=== PATIENT | male | born 1980 | race African-American/Black ===

== ENCOUNTER 2022-08-18 12:20 | Inpatient (IN) | payer SELFPAY ==
[~2022-08-18 12:20] MED LIST: Iopamidol-370 76% 500 ML 1 ML ONE
[2022-08-18 13:43] LABS: Actual Bicarbonate (HCO3v) 25 mEq/L (22-28); Base Excess 1.3 mEq/L (-2.0 to +3.0); Calcium, Ionized (venous) 0.91 mmol/L (1.16-1.32); Chloride (VBG) 95 mmol/L (98-106); Hemoglobin (Hb) 15.6 g/dL (13.2-17.3); Potassium (VBG) 7.05 mmol/L (3.70-5.30); Sodium 126.4 mmol/L (133-146); pH (venous) 7.45 (7.32-7.43)
[2022-08-18 13:48] LABS: Hemoglobin 14.6 g/dL (14.0-18.0); Mean Corpuscular HGB CONC 33.4 g/dL (32.0-36.0); Mean Corpuscular Hemoglobin 29.9 pg (27.0-31.0); Mean Corpuscular Volume 89.6 fl (78.0-98.0); Mean Platelet Volume 8.5 fL (7.4-10.4); Platelet Count 408 10x3/uL (130-400); RBC Distribution Width 12.1 % (11.5-14.5); Red Blood Cell (RBC) Count 4.88 mill/uL (4.70-6.10)
[2022-08-18] MEDS ORDERED: Dextrose 50% Abboject 50 ML SYRINGE ONE (13:56)
[2022-08-18] MEDS ORDERED: Insulin Regular 300 UNITS/3 ML VIAL ONE (13:56)
[2022-08-18] MEDS ORDERED: Calcium Chloride 1 GM/10 ML Abboject SYRINGE ONE ×2 (13:56→18:05)
[2022-08-18] MEDS ORDERED: Piperacillin/Tazobactam 4.5 GM VIAL ONE (13:59)
[2022-08-18] MEDS ORDERED: Albuterol 2.5 MG/0.5 ML NEB ONE (14:02)
[2022-08-18 14:06] LABS: Band 4 % (5-11); INR-International Normal Ratio 1.4; Lymphocytes 7 % (21-51); MDiff Complete? YES; Monocytes 4 % (0-10); Neutrophil 82 % (42-75); Platelet Morphology Comment Appears Increased; Prothrombin Time 18.1 sec (12.0-14.7); RBC Morphology Normal; Reactive Lymphocytes 3 % (0-10)
[2022-08-18 14:07] LABS: PTT 41.4 sec (22.9-36.1)
[2022-08-18 14:10] LABS: Magnesium 2.4 mg/dL (1.6-2.6)
[2022-08-18] MEDS ORDERED: VANCOMYCIN 2 GRAM/500 ML BAG 2 GM in Premix Bag 1 BAG IVPB SCH (14:15)
[2022-08-18 15:30] LABS: ALT (SGPT) 105 U/L (8-55); AST (SGOT) 122 U/L (5-34); Albumin 3.1 g/dL (3.5-5.0); Alkaline Phosphatase 129 U/L (40-110); Anion Gap 23 mmol/L (10-20); BUN (Urea Nitrogen) 14 mg/dL (8.9-20.6); Bilirubin, Total 2.3 mg/dL (0.2-1.2); Calc. Creatinine Clearance 0 mL/min (70-130); Calcium 8.4 mg/dL (7.8-10.44); Carbon Dioxide 20 mmol/L (22-29); Chloride 95 mmol/L (98-107); Estimated GFR 113; Globulin 3.8 g/dL (2.4-3.5); Glucose 86 mg/dL (70-105); Potassium 5.7 mmol/L (3.5-5.1); Protein, Total 6.9 g/dL (6.0-8.3); Sodium 132 mmol/L (136-145)
[2022-08-18 15:47] LABS: SARS-CoV-2 NAA Rapid Test Not Detected (NotDetected)
[2022-08-18 16:32] LABS: Lactic Acid 3.7 mmol/L (0.5-2.2)
[2022-08-18] MEDS ORDERED: Ondansetron ODT 4 MG TAB PO PRN (17:55)
[2022-08-18] MEDS ORDERED: HYDROcodone/Acetaminophen 5/325 mg Tablet PO PRN (17:55)
[2022-08-18] MEDS ORDERED: Ondansetron PF 4 MG/2 ML Vial IVP PRN (17:55)
[2022-08-18] MEDS ORDERED: Lactated Ringer's 1,000 ML IV SCH (18:15)
[2022-08-18 22:23] LABS: Hemoglobin A1c 5.2 % (4.0-6.0)
[2022-08-18 22:36] LABS: Anion Gap 11 mmol/L (10-20); BUN (Urea Nitrogen) 10 mg/dL (8.9-20.6); Calc. Creatinine Clearance 0 mL/min (70-130); Calcium 7.7 mg/dL (7.8-10.44); Carbon Dioxide 20 mmol/L (22-29); Chloride 104 mmol/L (98-107); Estimated GFR 117; Glucose 102 mg/dL (70-105); Potassium 4.5 mmol/L (3.5-5.1); Sodium 130 mmol/L (136-145)
[2022-08-18] MEDS ORDERED: Piperacillin/Tazobactam 3.375 GM in Sodium Chloride 0.9% 100 ML IVPB SCH (23:59)
[2022-08-19 00:17] VITALS: BMI 20.5
[2022-08-19] MEDS: Piperacillin/Tazobactam 3.375 GM in Sodium Chloride 0.9% 100 ML IVPB SCH ×3 (00:41→17:21)
[2022-08-19] MEDS ORDERED: Piperacillin/Tazobactam 3.375 GM in Sodium Chloride 0.9% 100 ML IVPB SCH (01:00)
[2022-08-19] MEDS ORDERED: Morphine 4 MG/ML VIAL SLOW IVP PRN (04:50)
[2022-08-19] MEDS: Vancomycin 1 GM in Premix Bag 1 BAG IVPB SCH ×3 (04:55→19:51)
[2022-08-19] MEDS ORDERED: Acetaminophen 500 MG TAB PO SCH (05:00)
[2022-08-19 06:21] LABS: Hemoglobin 10.2 g/dL (14.0-18.0); Mean Corpuscular HGB CONC 33.5 g/dL (32.0-36.0); Mean Corpuscular Hemoglobin 29.9 pg (27.0-31.0); Mean Corpuscular Volume 89.5 fl (78.0-98.0); Mean Platelet Volume 8.4 fL (7.4-10.4); Platelet Count 329 10x3/uL (130-400); RBC Distribution Width 12.1 % (11.5-14.5); Red Blood Cell (RBC) Count 3.41 mill/uL (4.70-6.10); White Blood Cell (WBC) Count 19.7 10x3/uL (4.8-10.8)
[2022-08-19 06:25] LABS: ALT (SGPT) 78 U/L (8-55); AST (SGOT) 120 U/L (5-34); Alkaline Phosphatase 90 U/L (40-110); Anion Gap 11 mmol/L (10-20); BUN (Urea Nitrogen) 9 mg/dL (8.9-20.6); Calc. Creatinine Clearance 140 mL/min (70-130); Calcium 7.6 mg/dL (7.8-10.44); Carbon Dioxide 20 mmol/L (22-29); Chloride 100 mmol/L (98-107); Estimated GFR 119; Glucose 113 mg/dL (70-105); Sodium 127 mmol/L (136-145)
[2022-08-19 08:37] LABS: Band 40 % (5-11); Lymphocytes 9 % (21-51); MDiff Complete? YES; Monocytes 6 % (0-10); Neutrophil 45 % (42-75); Platelet Morphology Comment Appears Adequate; Polychromasia SLIGHT = 2-3 cells (100X) (0-2/hpf); Toxic Granulation SLIGHT; Vacuoles SLIGHT
[2022-08-19 16:43] LABS: Magnesium 2.1 mg/dL (1.6-2.6); Phosphorus 2.1 mg/dL (2.3-4.7)
[2022-08-19 17:02] LABS: HIV (1/2) Antibody/Antigen Non-Reactive (NonReactive); HIV 1/2 INDEX 0.28 S/CO (<1.00); Hep C IgG Ab Non-Reactive (NonReactive); Hep C Index 0.16 S/CO (0-0.79)
[2022-08-19] MEDS: Sodium Bicarbonate Tab 325 MG TAB PO SCH ×2 (17:21→19:50)
[2022-08-19] MEDS: Acetaminophen 325 MG TAB PO PRN (19:57)
[2022-08-19] MEDS ORDERED: Electrolyte Replacement Protocol 1 EACH FS PRN (20:15)
[2022-08-20] MEDS: Piperacillin/Tazobactam 3.375 GM in Sodium Chloride 0.9% 100 ML IVPB SCH ×3 (02:46→17:26)
[2022-08-20] MEDS: Vancomycin 1 GM in Premix Bag 1 BAG IVPB SCH ×2 (05:24→12:30)
[2022-08-20] MEDS ORDERED: Sodium Chloride 0.9% 1,000 ML IV SCH (07:00)
[2022-08-20] MEDS: Ferrous Sulfate 325 MG TAB PO SCH (09:13)
[2022-08-20] MEDS: Folic Acid 1 MG TAB PO SCH (09:14)
[2022-08-20] MEDS: Thiamine 100 MG TAB PO SCH (09:14)
[2022-08-20 11:22] LABS: Mean Corpuscular HGB CONC 33.6 g/dL (32.0-36.0); Mean Corpuscular Hemoglobin 30.1 pg (27.0-31.0); Mean Corpuscular Volume 89.6 fl (78.0-98.0); Mean Platelet Volume 7.4 fL (7.4-10.4); Platelet Count 429 10x3/uL (130-400); RBC Distribution Width 12.1 % (11.5-14.5); Red Blood Cell (RBC) Count 3.64 mill/uL (4.70-6.10); White Blood Cell (WBC) Count 28.4 10x3/uL (4.8-10.8)
[2022-08-20 11:40] LABS: Vancomycin, Trough 3.2 ug/mL
[2022-08-20 11:43] LABS: ALT (SGPT) 74 U/L (8-55); AST (SGOT) 91 U/L (5-34); Alkaline Phosphatase 89 U/L (40-110); Anion Gap 10 mmol/L (10-20); BUN (Urea Nitrogen) 7 mg/dL (8.9-20.6); Bilirubin, Total 0.8 mg/dL (0.2-1.2); Calc. Creatinine Clearance 149 mL/min (70-130); Calcium 7.7 mg/dL (7.8-10.44); Carbon Dioxide 23 mmol/L (22-29); Chloride 100 mmol/L (98-107); Estimated GFR 122; Globulin 3.4 g/dL (2.4-3.5); Glucose 134 mg/dL (70-105); Phosphorus 2.3 mg/dL (2.3-4.7); Potassium 3.8 mmol/L (3.5-5.1); Protein, Total 5.4 g/dL (6.0-8.3); Sodium 129 mmol/L (136-145)
[2022-08-20 11:48] LABS: Band 44 % (5-11); Lymphocytes 2 % (21-51); MDiff Complete? YES; Metamyelocyte 1 % (0-0); Monocytes 5 % (0-10); Neutrophil 48 % (42-75); Platelet Morphology Comment Appears Increased; Polychromasia SLIGHT = 2-3 cells (100X) (0-2/hpf)
[2022-08-20] MEDS: VANCOMYCIN 1.25 GM/250 ML BAG 1.25 GM in Premix Bag 1 BAG IVPB SCH ×2 (12:38→21:58)
[2022-08-20] MEDS ORDERED: OLANZapine ODT 5 MG TAB SL SCH (12:43)
[2022-08-20] MEDS ORDERED: HYDROcodone/Acetaminophen 5/325 mg Tablet PO PRN (12:53)
[2022-08-20] MEDS ORDERED: Magnesium 2 GM/50 ML(in water) 2 GM in Premix Bag 1 BAG IVPB SCH (14:00)
[2022-08-21] MEDS: Piperacillin/Tazobactam 3.375 GM in Sodium Chloride 0.9% 100 ML IVPB SCH ×3 (00:54→16:03)
[2022-08-21 05:18] LABS: ALT (SGPT) 100 U/L (8-55); AST (SGOT) 136 U/L (5-34); Alkaline Phosphatase 89 U/L (40-110); Anion Gap 10 mmol/L (10-20); BUN (Urea Nitrogen) 7 mg/dL (8.9-20.6); Bilirubin, Total 0.7 mg/dL (0.2-1.2); Calc. Creatinine Clearance 142 mL/min (70-130); Calcium 7.7 mg/dL (7.8-10.44); Carbon Dioxide 23 mmol/L (22-29); Chloride 101 mmol/L (98-107); Estimated GFR 120; Globulin 3.6 g/dL (2.4-3.5); Glucose 103 mg/dL (70-105); Magnesium 2.3 mg/dL (1.6-2.6); Potassium 3.9 mmol/L (3.5-5.1); Protein, Total 5.6 g/dL (6.0-8.3); Sodium 130 mmol/L (136-145)
[2022-08-21 05:19] LABS: Acetaminophen Less than 10.0 mcg/mL (10.0-30.0); Alcohol Less than 10 mg/dL (Less than 10); Salicylate Less than 8.0 mg/dL (15.0-30.0)
[2022-08-21 05:47] LABS: Band 22 % (5-11); Eosinophils 1 % (0-10); Hemoglobin 10.6 g/dL (14.0-18.0); Lymphocytes 8 % (21-51); MDiff Complete? YES; Mean Corpuscular HGB CONC 32.7 g/dL (32.0-36.0); Mean Corpuscular Hemoglobin 29.5 pg (27.0-31.0); Mean Corpuscular Volume 90.2 fl (78.0-98.0); Mean Platelet Volume 7.4 fL (7.4-10.4); Metamyelocyte 3 % (0-0); Monocytes 5 % (0-10); Myelocyte 1 % (0-0); Neutrophil 58 % (42-75); Platelet Count 491 10x3/uL (130-400); Platelet Morphology Comment Appears Increased; RBC Distribution Width 12.2 % (11.5-14.5); Reactive Lymphocytes 2 % (0-10); Red Blood Cell (RBC) Count 3.58 mill/uL (4.70-6.10); Toxic Granulation SLIGHT; White Blood Cell (WBC) Count 29.9 10x3/uL (4.8-10.8)
[2022-08-21 06:12] LABS: Hep B Surface AG-Rflx Sendout Negative (Negative); Hepatitis B Core Total Negative (Negative); Hepatitis B Surface AB-Sendout Non Reactive (.)
[2022-08-21] MEDS: VANCOMYCIN 1.25 GM/250 ML BAG 1.25 GM in Premix Bag 1 BAG IVPB SCH (06:31)
[2022-08-21] MEDS: Ferrous Sulfate 325 MG TAB PO SCH (09:30)
[2022-08-21] MEDS: Folic Acid 1 MG TAB PO SCH (09:31)
[2022-08-21] MEDS: HYDROcodone/Acetaminophen 7.5/325 mg Tablet PO PRN (09:31)
[2022-08-21] MEDS: Thiamine 100 MG TAB PO SCH (09:31)
[2022-08-21] MEDS: OLANZapine ODT 5 MG TAB SL SCH (09:31)
[2022-08-21 12:15] LABS: Vancomycin, Trough 14.1 ug/mL
[2022-08-21] MEDS: Vancomycin 1.5 GRAM/300 ML BAG 1.5 GM in Premix Bag 1 BAG IVPB SCH ×2 (13:11→21:43)
[2022-08-22] MEDS: Piperacillin/Tazobactam 3.375 GM in Sodium Chloride 0.9% 100 ML IVPB SCH ×4 (02:15→16:53)
[2022-08-22] MEDS: Vancomycin 1.5 GRAM/300 ML BAG 1.5 GM in Premix Bag 1 BAG IVPB SCH ×3 (04:41→21:37)
[2022-08-22 04:57] LABS: Mean Corpuscular HGB CONC 32.7 g/dL (32.0-36.0); Mean Corpuscular Hemoglobin 29.5 pg (27.0-31.0); Mean Corpuscular Volume 90.4 fl (78.0-98.0); Mean Platelet Volume 7.1 fL (7.4-10.4); Platelet Count 554 10x3/uL (130-400); RBC Distribution Width 12.3 % (11.5-14.5); Red Blood Cell (RBC) Count 3.71 mill/uL (4.70-6.10); White Blood Cell (WBC) Count 24.1 10x3/uL (4.8-10.8)
[2022-08-22 05:09] LABS: ALT (SGPT) 137 U/L (8-55); AST (SGOT) 179 U/L (5-34); Albumin 1.9 g/dL (3.5-5.0); Alkaline Phosphatase 86 U/L (40-110); Anion Gap 10 mmol/L (10-20); BUN (Urea Nitrogen) 7 mg/dL (8.9-20.6); Bilirubin, Total 0.5 mg/dL (0.2-1.2); Calc. Creatinine Clearance 159 mL/min (70-130); Calcium 7.6 mg/dL (7.8-10.44); Carbon Dioxide 24 mmol/L (22-29); Chloride 101 mmol/L (98-107); Estimated GFR 124; Globulin 3.7 g/dL (2.4-3.5); Glucose 118 mg/dL (70-105); Protein, Total 5.6 g/dL (6.0-8.3); Sodium 131 mmol/L (136-145)
[2022-08-22 05:22] LABS: Band 18 % (5-11); Hypochromia SLIGHT = 6-15 cells (100X) (0-5/hpf); Lymphocytes 11 % (21-51); MDiff Complete? YES; Monocytes 7 % (0-10); Neutrophil 64 % (42-75); Platelet Morphology Comment Appears Adequate
[2022-08-22] MEDS: Ferrous Sulfate 325 MG TAB PO SCH (09:50)
[2022-08-22] MEDS: Thiamine 100 MG TAB PO SCH (09:51)
[2022-08-22] MEDS: HYDROcodone/Acetaminophen 7.5/325 mg Tablet PO PRN (09:51)
[2022-08-22] MEDS: Folic Acid 1 MG TAB PO SCH (09:51)
[2022-08-22] MEDS: OLANZapine ODT 5 MG TAB SL SCH (09:51)
[2022-08-22 12:35] LABS: Vancomycin, Trough 13.7 ug/mL
[2022-08-23] MEDS: Piperacillin/Tazobactam 3.375 GM in Sodium Chloride 0.9% 100 ML IVPB SCH ×3 (03:09→17:22)
[2022-08-23] MEDS: Vancomycin 1.5 GRAM/300 ML BAG 1.5 GM in Premix Bag 1 BAG IVPB SCH ×3 (03:15→21:28)
[2022-08-23 05:35] LABS: Hemoglobin 10.9 g/dL (14.0-18.0); Mean Corpuscular HGB CONC 33.7 g/dL (32.0-36.0); Mean Corpuscular Hemoglobin 30.4 pg (27.0-31.0); Mean Corpuscular Volume 90.5 fl (78.0-98.0); Mean Platelet Volume 6.7 fL (7.4-10.4); Platelet Count 611 10x3/uL (130-400); RBC Distribution Width 12.2 % (11.5-14.5); Red Blood Cell (RBC) Count 3.57 mill/uL (4.70-6.10); White Blood Cell (WBC) Count 18.6 10x3/uL (4.8-10.8)
[2022-08-23 05:57] LABS: Band 4 % (5-11); Lymphocytes 15 % (21-51); MDiff Complete? YES; Metamyelocyte 2 % (0-0); Monocytes 3 % (0-10); Neutrophil 76 % (42-75); Platelet Morphology Comment Appears Increased; RBC Morphology Normal
[2022-08-23 05:58] LABS: ALT (SGPT) 208 U/L (8-55); AST (SGOT) 217 U/L (5-34); Albumin 2.1 g/dL (3.5-5.0); Alkaline Phosphatase 99 U/L (40-110); Anion Gap 9 mmol/L (10-20); BUN (Urea Nitrogen) 9 mg/dL (8.9-20.6); Bilirubin, Total 0.4 mg/dL (0.2-1.2); Calc. Creatinine Clearance 165 mL/min (70-130); Calcium 7.7 mg/dL (7.8-10.44); Carbon Dioxide 24 mmol/L (22-29); Chloride 103 mmol/L (98-107); Estimated GFR 125; Globulin 3.9 g/dL (2.4-3.5); Glucose 116 mg/dL (70-105); Potassium 4.5 mmol/L (3.5-5.1); Sodium 131 mmol/L (136-145)
[2022-08-23] MEDS: Thiamine 100 MG TAB PO SCH (10:05)
[2022-08-23] MEDS: Ferrous Sulfate 325 MG TAB PO SCH (10:05)
[2022-08-23] MEDS: Folic Acid 1 MG TAB PO SCH (10:05)
[2022-08-23] MEDS: OLANZapine ODT 5 MG TAB SL SCH (10:07)
[2022-08-23 12:36] LABS: Vancomycin, Trough 12.5 ug/mL
[2022-08-24] MEDS: Piperacillin/Tazobactam 3.375 GM in Sodium Chloride 0.9% 100 ML IVPB SCH ×3 (01:22→17:28)
[2022-08-24] MEDS: Vancomycin 1.5 GRAM/300 ML BAG 1.5 GM in Premix Bag 1 BAG IVPB SCH ×3 (03:03→21:37)
[2022-08-24 05:26] LABS: ALT (SGPT) 201 U/L (8-55); AST (SGOT) 160 U/L (5-34); Albumin 2.2 g/dL (3.5-5.0); Alkaline Phosphatase 96 U/L (40-110); Anion Gap 10 mmol/L (10-20); BUN (Urea Nitrogen) 9 mg/dL (8.9-20.6); Bilirubin, Total 0.4 mg/dL (0.2-1.2); Calc. Creatinine Clearance 156 mL/min (70-130); Calcium 7.9 mg/dL (7.8-10.44); Carbon Dioxide 24 mmol/L (22-29); Chloride 103 mmol/L (98-107); Estimated GFR 123; Globulin 3.9 g/dL (2.4-3.5); Glucose 105 mg/dL (70-105); Potassium 4.3 mmol/L (3.5-5.1); Protein, Total 6.1 g/dL (6.0-8.3); Sodium 133 mmol/L (136-145)
[2022-08-24] MEDS: Folic Acid 1 MG TAB PO SCH (08:51)
[2022-08-24] MEDS: Ferrous Sulfate 325 MG TAB PO SCH (08:51)
[2022-08-24] MEDS: Thiamine 100 MG TAB PO SCH (08:51)
[2022-08-24] MEDS: OLANZapine ODT 5 MG TAB SL SCH (08:52)
[2022-08-24] MEDS: HYDROcodone/Acetaminophen 7.5/325 mg Tablet PO PRN (08:53)
[2022-08-24 13:00] LABS: Vancomycin, Trough 13.9 ug/mL
[2022-08-25] MEDS: Piperacillin/Tazobactam 3.375 GM in Sodium Chloride 0.9% 100 ML IVPB SCH ×3 (00:48→17:41)
[2022-08-25] MEDS: Vancomycin 1.5 GRAM/300 ML BAG 1.5 GM in Premix Bag 1 BAG IVPB SCH ×3 (04:33→20:32)
[2022-08-25 05:12] LABS: #Eosinphils 0.1 thou/uL (0.0-0.7); #Monocytes 1.2 thou/uL (0.11-0.59); #Neutrophils 11.9 thou/uL (1.40-6.50); %Basophils 0.1 % (0.0-1.0); %Eosinophils 0.7 % (0.0-10.0); %Lymphocytes 12.9 % (21.0-51.0); %Monocytes 7.7 % (0.0-10.0); %Neutrophils 78.6 % (42.0-75.0); Hemoglobin 11.6 g/dL (14.0-18.0); Mean Corpuscular Hemoglobin 28.8 pg (27.0-31.0); Mean Platelet Volume 6.5 fL (7.4-10.4); Platelet Count 738 10x3/uL (130-400); RBC Distribution Width 12.4 % (11.5-14.5); Red Blood Cell (RBC) Count 4.04 mill/uL (4.70-6.10); White Blood Cell (WBC) Count 15.2 10x3/uL (4.8-10.8)
[2022-08-25 05:14] LABS: Amphetamine Not Detected (NotDetected); Barbiturates Screen Not Detected (NotDetected); Benzodiazepine Screen Not Detected (NotDetected); Cocaine Metabolite Screen Not Detected (NotDetected); Methadone Not Detected (NotDetected); Methamphetamine Not Detected (NotDetected); Opiate Screen Detected (NotDetected); Oxycodone Screen Not Detected (NotDetected); Phencyclidine (PCP) Not Detected (NotDetected); THC/Cannabinoid Screen Not Detected (NotDetected); Tricyclic Screen Not Detected (NotDetected)
[2022-08-25 05:29] LABS: ALT (SGPT) 200 U/L (8-55); AST (SGOT) 146 U/L (5-34); Albumin 2.2 g/dL (3.5-5.0); Alkaline Phosphatase 114 U/L (40-110); Bilirubin, Direct 0.2 mg/dL (0.1-0.3); Bilirubin, Total 0.4 mg/dL (0.2-1.2); Protein, Total 6.3 g/dL (6.0-8.3)
[2022-08-25 05:30] LABS: ALT (SGPT) 190 U/L (8-55); AST (SGOT) 146 U/L (5-34); Albumin 2.2 g/dL (3.5-5.0); Alkaline Phosphatase 118 U/L (40-110); Anion Gap 12 mmol/L (10-20); BUN (Urea Nitrogen) 11 mg/dL (8.9-20.6); Bilirubin, Total 0.4 mg/dL (0.2-1.2); Calc. Creatinine Clearance 156 mL/min (70-130); Calcium 7.2 mg/dL (7.8-10.44); Carbon Dioxide 24 mmol/L (22-29); Chloride 101 mmol/L (98-107); Estimated GFR 123; Globulin 3.4 g/dL (2.4-3.5); Glucose 107 mg/dL (70-105); Potassium 4.9 mmol/L (3.5-5.1); Protein, Total 5.6 g/dL (6.0-8.3); Sodium 132 mmol/L (136-145)
[2022-08-25] MEDS: Ferrous Sulfate 325 MG TAB PO SCH (10:23)
[2022-08-25] MEDS: Thiamine 100 MG TAB PO SCH (10:24)
[2022-08-25] MEDS: Folic Acid 1 MG TAB PO SCH (10:24)
[2022-08-25] MEDS: HYDROcodone/Acetaminophen 7.5/325 mg Tablet PO PRN (12:20)
[2022-08-25] MEDS: OLANZapine ODT 5 MG TAB SL SCH (12:21)
[2022-08-25 12:59] LABS: Vancomycin, Trough 12.9 ug/mL
[2022-08-26] MEDS: Piperacillin/Tazobactam 3.375 GM in Sodium Chloride 0.9% 100 ML IVPB SCH ×3 (01:02→16:52)
[2022-08-26 04:29] LABS: #Eosinphils 0.1 thou/uL (0.0-0.7); #Lymphocytes 1.7 thou/uL (1.20-3.40); #Monocytes 1.3 thou/uL (0.11-0.59); #Neutrophils 10.8 thou/uL (1.40-6.50); %Basophils 0.2 % (0.0-1.0); %Eosinophils 0.9 % (0.0-10.0); %Lymphocytes 12.2 % (21.0-51.0); %Monocytes 9.4 % (0.0-10.0); %Neutrophils 77.3 % (42.0-75.0); Mean Corpuscular Volume 90.5 fl (78.0-98.0); Mean Platelet Volume 6.1 fL (7.4-10.4); Platelet Count 736 10x3/uL (130-400); RBC Distribution Width 12.3 % (11.5-14.5); Red Blood Cell (RBC) Count 4.14 mill/uL (4.70-6.10)
[2022-08-26 04:50] LABS: ALT (SGPT) 153 U/L (8-55); AST (SGOT) 68 U/L (5-34); Albumin 2.3 g/dL (3.5-5.0); Alkaline Phosphatase 121 U/L (40-110); Anion Gap 12 mmol/L (10-20); BUN (Urea Nitrogen) 10 mg/dL (8.9-20.6); Bilirubin, Total 0.4 mg/dL (0.2-1.2); Calc. Creatinine Clearance 151 mL/min (70-130); Calcium 7.6 mg/dL (7.8-10.44); Carbon Dioxide 25 mmol/L (22-29); Chloride 102 mmol/L (98-107); Estimated GFR 122; Globulin 3.4 g/dL (2.4-3.5); Glucose 118 mg/dL (70-105); Potassium 4.6 mmol/L (3.5-5.1); Protein, Total 5.7 g/dL (6.0-8.3); Sodium 134 mmol/L (136-145)
[2022-08-26 04:51] LABS: ALT (SGPT) 161 U/L (8-55); AST (SGOT) 70 U/L (5-34); Albumin 2.3 g/dL (3.5-5.0); Alkaline Phosphatase 120 U/L (40-110); Bilirubin, Direct 0.2 mg/dL (0.1-0.3); Bilirubin, Total 0.4 mg/dL (0.2-1.2); Protein, Total 6.4 g/dL (6.0-8.3)
[2022-08-26] MEDS: Vancomycin 1.5 GRAM/300 ML BAG 1.5 GM in Premix Bag 1 BAG IVPB SCH ×3 (05:41→20:57)
[2022-08-26] MEDS: Folic Acid 1 MG TAB PO SCH (09:57)
[2022-08-26] MEDS: Ferrous Sulfate 325 MG TAB PO SCH (09:57)
[2022-08-26] MEDS: Thiamine 100 MG TAB PO SCH (09:57)
[2022-08-26] MEDS: OLANZapine ODT 5 MG TAB SL SCH (09:57)
[2022-08-26] MEDS: Acetaminophen 325 MG TAB PO PRN (10:05)
[2022-08-26] MEDS: HYDROcodone/Acetaminophen 7.5/325 mg Tablet PO PRN (10:15)
[2022-08-26 13:10] LABS: Vancomycin, Trough 15.6 ug/mL
[2022-08-27] MEDS: Piperacillin/Tazobactam 3.375 GM in Sodium Chloride 0.9% 100 ML IVPB SCH ×3 (01:17→17:24)
[2022-08-27] MEDS: Vancomycin 1.5 GRAM/300 ML BAG 1.5 GM in Premix Bag 1 BAG IVPB SCH (06:13)
[2022-08-27 07:30] LABS: #Lymphocytes 1.6 thou/uL (1.20-3.40); #Monocytes 1.1 thou/uL (0.11-0.59); #Neutrophils 8.6 thou/uL (1.40-6.50); %Basophils 0.4 % (0.0-1.0); %Eosinophils 0.4 % (0.0-10.0); %Lymphocytes 13.7 % (21.0-51.0); %Monocytes 9.2 % (0.0-10.0); %Neutrophils 76.2 % (42.0-75.0); Hemoglobin 11.4 g/dL (14.0-18.0); Mean Corpuscular Volume 90.5 fl (78.0-98.0); Platelet Count 737 10x3/uL (130-400); RBC Distribution Width 12.3 % (11.5-14.5); Red Blood Cell (RBC) Count 3.94 mill/uL (4.70-6.10); White Blood Cell (WBC) Count 11.3 10x3/uL (4.8-10.8)
[2022-08-27 07:44] LABS: ALT (SGPT) 102 U/L (8-55); AST (SGOT) 33 U/L (5-34); Albumin 2.3 g/dL (3.5-5.0); Alkaline Phosphatase 99 U/L (40-110); Anion Gap 13 mmol/L (10-20); BUN (Urea Nitrogen) 9 mg/dL (8.9-20.6); Bilirubin, Total 0.6 mg/dL (0.2-1.2); Calc. Creatinine Clearance 146 mL/min (70-130); Calcium 8.4 mg/dL (7.8-10.44); Carbon Dioxide 23 mmol/L (22-29); Chloride 102 mmol/L (98-107); Estimated GFR 121; Globulin 4.1 g/dL (2.4-3.5); Glucose 121 mg/dL (70-105); Potassium 4.3 mmol/L (3.5-5.1); Protein, Total 6.4 g/dL (6.0-8.3); Sodium 134 mmol/L (136-145)
[2022-08-27] MEDS: Ferrous Sulfate 325 MG TAB PO SCH (08:56)
[2022-08-27] MEDS: OLANZapine ODT 5 MG TAB SL SCH (08:56)
[2022-08-27] MEDS: Folic Acid 1 MG TAB PO SCH (08:56)
[2022-08-27] MEDS: Thiamine 100 MG TAB PO SCH (08:56)
[2022-08-27 12:41] LABS: Vancomycin, Trough 20.8 ug/mL
[2022-08-27] MEDS: Calcium Carbonate 600 MG + Vit D TAB PO SCH ×2 (17:25→17:28)
[2022-08-27] MEDS: Ziprasidone 20 MG CAP PO SCH (21:15)
[2022-08-27] MEDS: VANCOMYCIN 1.25 GM/250 ML BAG 1.25 GM in Premix Bag 1 BAG IVPB SCH (22:26)
[2022-08-28] MEDS: Piperacillin/Tazobactam 3.375 GM in Sodium Chloride 0.9% 100 ML IVPB SCH ×3 (02:00→17:11)
[2022-08-28] MEDS: VANCOMYCIN 1.25 GM/250 ML BAG 1.25 GM in Premix Bag 1 BAG IVPB SCH ×3 (06:07→21:57)
[2022-08-28] MEDS: Acetaminophen 325 MG TAB PO PRN ×2 (06:07→20:55)
[2022-08-28 08:12] LABS: ALT (SGPT) 83 U/L (8-55); AST (SGOT) 44 U/L (5-34); Albumin 2.3 g/dL (3.5-5.0); Alkaline Phosphatase 103 U/L (40-110); Anion Gap 11 mmol/L (10-20); BUN (Urea Nitrogen) 10 mg/dL (8.9-20.6); Bilirubin, Total 0.7 mg/dL (0.2-1.2); Calc. Creatinine Clearance 140 mL/min (70-130); Calcium 8.3 mg/dL (7.8-10.44); Carbon Dioxide 25 mmol/L (22-29); Chloride 100 mmol/L (98-107); Estimated GFR 119; Globulin 3.9 g/dL (2.4-3.5); Glucose 106 mg/dL (70-105); Potassium 4.2 mmol/L (3.5-5.1); Protein, Total 6.2 g/dL (6.0-8.3); Sodium 132 mmol/L (136-145)
[2022-08-28] MEDS: Calcium Carbonate 600 MG + Vit D TAB PO SCH ×2 (09:24→17:11)
[2022-08-28] MEDS: Folic Acid 1 MG TAB PO SCH (09:24)
[2022-08-28] MEDS: Benztropine 1 MG TAB PO SCH (09:24)
[2022-08-28] MEDS: Ascorbic Acid 500 mg Chewable Tablet PO SCH (09:24)
[2022-08-28] MEDS: Ferrous Sulfate 325 MG TAB PO SCH (09:24)
[2022-08-28] MEDS: Multivitamin W/ Minerals 1 TAB PO SCH (09:24)
[2022-08-28] MEDS: Ziprasidone 20 MG CAP PO SCH ×2 (09:24→20:55)
[2022-08-28] MEDS: Thiamine 100 MG TAB PO SCH (09:24)
[2022-08-28] MEDS: HYDROcodone/Acetaminophen 7.5/325 mg Tablet PO PRN (10:56)
[2022-08-29] MEDS: Piperacillin/Tazobactam 3.375 GM in Sodium Chloride 0.9% 100 ML IVPB SCH ×2 (00:45→08:58)
[2022-08-29] MEDS: VANCOMYCIN 1.25 GM/250 ML BAG 1.25 GM in Premix Bag 1 BAG IVPB SCH ×2 (05:28→13:33)
[2022-08-29 07:00] LABS: ALT (SGPT) 62 U/L (8-55); AST (SGOT) 25 U/L (5-34); Albumin 2.3 g/dL (3.5-5.0); Alkaline Phosphatase 94 U/L (40-110); Anion Gap 10 mmol/L (10-20); BUN (Urea Nitrogen) 9 mg/dL (8.9-20.6); Bilirubin, Total 0.4 mg/dL (0.2-1.2); Calc. Creatinine Clearance 156 mL/min (70-130); Calcium 8.4 mg/dL (7.8-10.44); Carbon Dioxide 26 mmol/L (22-29); Chloride 102 mmol/L (98-107); Estimated GFR 123; Globulin 3.9 g/dL (2.4-3.5); Glucose 114 mg/dL (70-105); Potassium 4.2 mmol/L (3.5-5.1); Protein, Total 6.2 g/dL (6.0-8.3); Sodium 134 mmol/L (136-145)
[2022-08-29] MEDS: Calcium Carbonate 600 MG + Vit D TAB PO SCH ×2 (08:59→16:55)
[2022-08-29] MEDS: Ferrous Sulfate 325 MG TAB PO SCH (08:59)
[2022-08-29] MEDS: Ascorbic Acid 500 mg Chewable Tablet PO SCH (08:59)
[2022-08-29] MEDS: Multivitamin W/ Minerals 1 TAB PO SCH (08:59)
[2022-08-29] MEDS: Benztropine 1 MG TAB PO SCH (09:00)
[2022-08-29] MEDS: Folic Acid 1 MG TAB PO SCH (09:00)
[2022-08-29] MEDS: Thiamine 100 MG TAB PO SCH (09:00)
[2022-08-29] MEDS: Ziprasidone 20 MG CAP PO SCH ×2 (09:07→22:14)
[2022-08-29 20:33] LABS: Vancomycin, Trough 15.8 ug/mL
[2022-08-29] MEDS: Cefepime 1 GM in Sodium Chloride 0.9% 100 ML IVPB SCH (21:21)
[2022-08-30 07:09] LABS: #Basophils 0.1 thou/uL (0.0-0.2); #Lymphocytes 1.3 thou/uL (1.20-3.40); #Monocytes 0.8 thou/uL (0.11-0.59); #Neutrophils 3.6 thou/uL (1.40-6.50); %Basophils 0.9 % (0.0-1.0); %Eosinophils 0.3 % (0.0-10.0); %Lymphocytes 22.2 % (21.0-51.0); %Monocytes 13.4 % (0.0-10.0); %Neutrophils 63.2 % (42.0-75.0); Mean Corpuscular HGB CONC 32.3 g/dL (32.0-36.0); Mean Corpuscular Hemoglobin 28.6 pg (27.0-31.0); Mean Corpuscular Volume 88.6 fl (78.0-98.0); Mean Platelet Volume 6.1 fL (7.4-10.4); Platelet Count 618 10x3/uL (130-400); RBC Distribution Width 12.1 % (11.5-14.5); Red Blood Cell (RBC) Count 3.86 mill/uL (4.70-6.10); White Blood Cell (WBC) Count 5.7 10x3/uL (4.8-10.8)
[2022-08-30 07:30] LABS: Anion Gap 12 mmol/L (10-20); BUN (Urea Nitrogen) 9 mg/dL (8.9-20.6); Calc. Creatinine Clearance 151 mL/min (70-130); Calcium 8.3 mg/dL (7.8-10.44); Carbon Dioxide 25 mmol/L (22-29); Chloride 101 mmol/L (98-107); Estimated GFR 122; Glucose 108 mg/dL (70-105); Sodium 134 mmol/L (136-145)
[2022-08-30] MEDS: Cefepime 1 GM in Sodium Chloride 0.9% 100 ML IVPB SCH ×2 (09:25→20:45)
[2022-08-30] MEDS: Ferrous Sulfate 325 MG TAB PO SCH (09:26)
[2022-08-30] MEDS: Ascorbic Acid 500 mg Chewable Tablet PO SCH (09:26)
[2022-08-30] MEDS: Thiamine 100 MG TAB PO SCH (09:28)
[2022-08-30] MEDS: Multivitamin W/ Minerals 1 TAB PO SCH (09:32)
[2022-08-30] MEDS: Folic Acid 1 MG TAB PO SCH (09:32)
[2022-08-30] MEDS: Benztropine 1 MG TAB PO SCH (09:32)
[2022-08-30] MEDS: Calcium Carbonate 600 MG + Vit D TAB PO SCH ×2 (09:33→16:48)
[2022-08-30] MEDS: Ziprasidone 20 MG CAP PO SCH ×2 (09:33→20:43)
[2022-08-31 07:53] LABS: #Basophils 0.1 thou/uL (0.0-0.2); #Lymphocytes 1.3 thou/uL (1.20-3.40); #Monocytes 0.6 thou/uL (0.11-0.59); #Neutrophils 3.8 thou/uL (1.40-6.50); %Basophils 1.2 % (0.0-1.0); %Eosinophils 0.2 % (0.0-10.0); %Lymphocytes 22.5 % (21.0-51.0); %Monocytes 10.7 % (0.0-10.0); %Neutrophils 65.4 % (42.0-75.0); Hemoglobin 10.9 g/dL (14.0-18.0); Mean Corpuscular HGB CONC 33.2 g/dL (32.0-36.0); Mean Corpuscular Volume 87.6 fl (78.0-98.0); Mean Platelet Volume 6.3 fL (7.4-10.4); Platelet Count 520 10x3/uL (130-400); RBC Distribution Width 12.1 % (11.5-14.5); Red Blood Cell (RBC) Count 3.74 mill/uL (4.70-6.10); White Blood Cell (WBC) Count 5.8 10x3/uL (4.8-10.8)
[2022-08-31 08:13] LABS: Anion Gap 12 mmol/L (10-20); BUN (Urea Nitrogen) 12 mg/dL (8.9-20.6); Calc. Creatinine Clearance 151 mL/min (70-130); Calcium 8.5 mg/dL (7.8-10.44); Carbon Dioxide 25 mmol/L (22-29); Chloride 101 mmol/L (98-107); Estimated GFR 122; Glucose 94 mg/dL (70-105); Sodium 134 mmol/L (136-145)
[2022-08-31] MEDS: traMADol HCl 50 MG TAB PO PRN (09:34)
[2022-08-31] MEDS: Ascorbic Acid 500 mg Chewable Tablet PO SCH (10:18)
[2022-08-31] MEDS: Ferrous Sulfate 325 MG TAB PO SCH (10:19)
[2022-08-31] MEDS: Multivitamin W/ Minerals 1 TAB PO SCH (10:20)
[2022-08-31] MEDS: Benztropine 1 MG TAB PO SCH (10:57)
[2022-08-31] MEDS: Ziprasidone 20 MG CAP PO SCH ×2 (10:57→20:16)
[2022-08-31] MEDS: Cefepime 1 GM in Sodium Chloride 0.9% 100 ML IVPB SCH (10:58)
[2022-08-31] MEDS: Folic Acid 1 MG TAB PO SCH (11:10)
[2022-08-31] MEDS: Thiamine 100 MG TAB PO SCH (11:10)
[2022-08-31] MEDS: Calcium Carbonate 600 MG + Vit D TAB PO SCH ×2 (11:10→17:21)
[2022-08-31] MEDS: Cefepime 2 GM in Sodium Chloride 0.9% 100 ML IVPB SCH (20:17)
[2022-09-01] MEDS: Cefepime 2 GM in Sodium Chloride 0.9% 100 ML IVPB SCH ×2 (09:14→20:56)
[2022-09-01] MEDS: Ferrous Sulfate 325 MG TAB PO SCH (09:15)
[2022-09-01] MEDS: Benztropine 1 MG TAB PO SCH (09:15)
[2022-09-01] MEDS: Ascorbic Acid 500 mg Chewable Tablet PO SCH (09:15)
[2022-09-01] MEDS: Calcium Carbonate 600 MG + Vit D TAB PO SCH ×2 (09:15→16:56)
[2022-09-01] MEDS: Ziprasidone 20 MG CAP PO SCH ×2 (09:15→20:56)
[2022-09-01] MEDS: Folic Acid 1 MG TAB PO SCH (09:16)
[2022-09-01] MEDS: Multivitamin W/ Minerals 1 TAB PO SCH (09:16)
[2022-09-01] MEDS: Thiamine 100 MG TAB PO SCH (09:16)
[2022-09-01] MEDS: Acetaminophen 325 MG TAB PO PRN (09:17)
[2022-09-02 07:22] LABS: #Basophils 0.1 thou/uL (0.0-0.2); #Lymphocytes 1.3 thou/uL (1.20-3.40); #Monocytes 0.6 thou/uL (0.11-0.59); #Neutrophils 3.5 thou/uL (1.40-6.50); %Basophils 1.7 % (0.0-1.0); %Eosinophils 0.7 % (0.0-10.0); %Lymphocytes 23.8 % (21.0-51.0); %Monocytes 11.3 % (0.0-10.0); %Neutrophils 62.5 % (42.0-75.0); Hemoglobin 11.2 g/dL (14.0-18.0); Mean Corpuscular HGB CONC 33.2 g/dL (32.0-36.0); Mean Corpuscular Hemoglobin 28.9 pg (27.0-31.0); Mean Platelet Volume 6.6 fL (7.4-10.4); Platelet Count 481 10x3/uL (130-400); Red Blood Cell (RBC) Count 3.86 mill/uL (4.70-6.10); White Blood Cell (WBC) Count 5.5 10x3/uL (4.8-10.8)
[2022-09-02 07:44] LABS: Anion Gap 10 mmol/L (10-20); BUN (Urea Nitrogen) 8 mg/dL (8.9-20.6); Calc. Creatinine Clearance 156 mL/min (70-130); Calcium 8.6 mg/dL (7.8-10.44); Carbon Dioxide 27 mmol/L (22-29); Chloride 102 mmol/L (98-107); Estimated GFR 123; Glucose 99 mg/dL (70-105); Potassium 4.1 mmol/L (3.5-5.1); Sodium 135 mmol/L (136-145)
[2022-09-02] MEDS: Calcium Carbonate 600 MG + Vit D TAB PO SCH ×2 (08:29→16:21)
[2022-09-02] MEDS: Ferrous Sulfate 325 MG TAB PO SCH (08:29)
[2022-09-02] MEDS: Ziprasidone 20 MG CAP PO SCH ×2 (08:29→20:39)
[2022-09-02] MEDS: Ascorbic Acid 500 mg Chewable Tablet PO SCH (08:29)
[2022-09-02] MEDS: Benztropine 1 MG TAB PO SCH (08:29)
[2022-09-02] MEDS: Multivitamin W/ Minerals 1 TAB PO SCH (08:30)
[2022-09-02] MEDS: Thiamine 100 MG TAB PO SCH (08:30)
[2022-09-02] MEDS: Folic Acid 1 MG TAB PO SCH (08:30)
[2022-09-02] MEDS: Cefepime 2 GM in Sodium Chloride 0.9% 100 ML IVPB SCH ×2 (08:44→20:39)
[2022-09-02] MEDS: traMADol HCl 50 MG TAB PO PRN (09:09)
[2022-09-02] MEDS: Acetaminophen 325 MG TAB PO PRN (20:38)
[2022-09-03] MEDS: Acetaminophen 325 MG TAB PO PRN (05:18)
[2022-09-03] MEDS: Cefepime 2 GM in Sodium Chloride 0.9% 100 ML IVPB SCH ×2 (08:44→20:55)
[2022-09-03] MEDS: Calcium Carbonate 600 MG + Vit D TAB PO SCH ×2 (08:45→18:05)
[2022-09-03] MEDS: Ferrous Sulfate 325 MG TAB PO SCH (08:45)
[2022-09-03] MEDS: Ziprasidone 20 MG CAP PO SCH (08:45)
[2022-09-03] MEDS: Benztropine 1 MG TAB PO SCH (08:45)
[2022-09-03] MEDS: Thiamine 100 MG TAB PO SCH (08:46)
[2022-09-03] MEDS: Ascorbic Acid 500 mg Chewable Tablet PO SCH (08:46)
[2022-09-03] MEDS: Multivitamin W/ Minerals 1 TAB PO SCH (08:46)
[2022-09-03] MEDS: Folic Acid 1 MG TAB PO SCH (08:46)
[2022-09-04] MEDS: Benztropine 1 MG TAB PO SCH (07:55)
[2022-09-04] MEDS: Ascorbic Acid 500 mg Chewable Tablet PO SCH (07:55)
[2022-09-04] MEDS: Ferrous Sulfate 325 MG TAB PO SCH (07:55)
[2022-09-04] MEDS: Calcium Carbonate 600 MG + Vit D TAB PO SCH ×2 (07:55→17:15)
[2022-09-04] MEDS: Cefepime 2 GM in Sodium Chloride 0.9% 100 ML IVPB SCH ×2 (07:55→20:36)
[2022-09-04] MEDS: Folic Acid 1 MG TAB PO SCH (07:56)
[2022-09-04] MEDS: Multivitamin W/ Minerals 1 TAB PO SCH (07:56)
[2022-09-04] MEDS: Thiamine 100 MG TAB PO SCH (07:56)
[2022-09-04] MEDS ORDERED: Ziprasidone 20 MG CAP PO SCH (08:00)
[2022-09-04] MEDS: traMADol HCl 50 MG TAB PO PRN (09:46)
[2022-09-04] MEDS: Ziprasidone 20 MG CAP PO SCH (20:36)
[2022-09-05] MEDS: Acetaminophen 325 MG TAB PO PRN ×2 (05:05→20:02)
[2022-09-05 06:56] LABS: Anion Gap 9 mmol/L (10-20); BUN (Urea Nitrogen) 6 mg/dL (8.9-20.6); Calc. Creatinine Clearance 159 mL/min (70-130); Carbon Dioxide 25 mmol/L (22-29); Chloride 100 mmol/L (98-107); Estimated GFR 124; Glucose 104 mg/dL (70-105); Sodium 130 mmol/L (136-145)
[2022-09-05 06:58] LABS: Hemoglobin 10.8 g/dL (14.0-18.0); Mean Corpuscular HGB CONC 33.5 g/dL (32.0-36.0); Mean Corpuscular Hemoglobin 29.2 pg (27.0-31.0); Mean Corpuscular Volume 87.1 fl (78.0-98.0); Mean Platelet Volume 6.9 fL (7.4-10.4); Platelet Count 360 10x3/uL (130-400); Red Blood Cell (RBC) Count 3.71 mill/uL (4.70-6.10); White Blood Cell (WBC) Count 5.7 10x3/uL (4.8-10.8)
[2022-09-05 07:01] LABS: Band 4 % (5-11); Eosinophils 2 % (0-10); Lymphocytes 33 % (21-51); MDiff Complete? YES; Monocytes 14 % (0-10); Neutrophil 47 % (42-75); Platelet Morphology Comment Appears Adequate; RBC Morphology Normal
[2022-09-05] MEDS: Ferrous Sulfate 325 MG TAB PO SCH (08:40)
[2022-09-05] MEDS: Ascorbic Acid 500 mg Chewable Tablet PO SCH (08:40)
[2022-09-05] MEDS: Folic Acid 1 MG TAB PO SCH (08:40)
[2022-09-05] MEDS: Multivitamin W/ Minerals 1 TAB PO SCH (08:40)
[2022-09-05] MEDS: Calcium Carbonate 600 MG + Vit D TAB PO SCH ×2 (08:40→14:57)
[2022-09-05] MEDS: Thiamine 100 MG TAB PO SCH (08:41)
[2022-09-05] MEDS: Benztropine 1 MG TAB PO SCH (08:41)
[2022-09-05] MEDS: Cefepime 2 GM in Sodium Chloride 0.9% 100 ML IVPB SCH (08:41)
[2022-09-05] MEDS: Ziprasidone 20 MG CAP PO SCH ×2 (08:42→20:03)
[2022-09-05] MEDS: traMADol HCl 50 MG TAB PO PRN (12:05)
[2022-09-05] MEDS: Sulfameth/Trimethoprim DS 800-160mg TAB PO SCH (20:03)
[2022-09-06 06:52] LABS: Anion Gap 14 mmol/L (10-20); BUN (Urea Nitrogen) 7 mg/dL (8.9-20.6); Calc. Creatinine Clearance 171 mL/min (70-130); Calcium 8.6 mg/dL (7.8-10.44); Carbon Dioxide 23 mmol/L (22-29); Chloride 98 mmol/L (98-107); Estimated GFR 127; Glucose 92 mg/dL (70-105); Sodium 131 mmol/L (136-145)
[2022-09-06 08:11] LABS: Hemoglobin 10.5 g/dL (14.0-18.0); Mean Corpuscular Volume 87.9 fl (78.0-98.0); Mean Platelet Volume 7.3 fL (7.4-10.4); Platelet Count 392 10x3/uL (130-400); Red Blood Cell (RBC) Count 3.62 mill/uL (4.70-6.10); White Blood Cell (WBC) Count 5.5 10x3/uL (4.8-10.8)
[2022-09-06 08:39] LABS: Band 8 % (5-11); Eosinophils 6 % (0-10); Lymphocytes 35 % (21-51); MDiff Complete? YES; Monocytes 14 % (0-10); Neutrophil 36 % (42-75); Platelet Morphology Comment Appears Adequate; Reactive Lymphocytes 1 % (0-10)
[2022-09-06] MEDS: Ferrous Sulfate 325 MG TAB PO SCH (09:52)
[2022-09-06] MEDS: Ascorbic Acid 500 mg Chewable Tablet PO SCH (09:52)
[2022-09-06] MEDS: Benztropine 1 MG TAB PO SCH (09:52)
[2022-09-06] MEDS: Calcium Carbonate 600 MG + Vit D TAB PO SCH ×2 (09:52→17:27)
[2022-09-06] MEDS: Thiamine 100 MG TAB PO SCH (09:53)
[2022-09-06] MEDS: Sulfameth/Trimethoprim DS 800-160mg TAB PO SCH ×2 (09:53→19:16)
[2022-09-06] MEDS: Folic Acid 1 MG TAB PO SCH (09:53)
[2022-09-06] MEDS: Multivitamin W/ Minerals 1 TAB PO SCH (09:53)
[2022-09-06] MEDS: Ziprasidone 20 MG CAP PO SCH ×2 (09:54→19:16)
[2022-09-07 07:05] LABS: Hemoglobin 11.2 g/dL (14.0-18.0); Mean Corpuscular HGB CONC 33.2 g/dL (32.0-36.0); Mean Corpuscular Hemoglobin 28.9 pg (27.0-31.0); Mean Platelet Volume 7.2 fL (7.4-10.4); Platelet Count 421 10x3/uL (130-400); Red Blood Cell (RBC) Count 3.89 mill/uL (4.70-6.10); White Blood Cell (WBC) Count 5.7 10x3/uL (4.8-10.8)
[2022-09-07 07:27] LABS: Phosphorus 3.3 mg/dL (2.3-4.7)
[2022-09-07 07:30] LABS: ALT (SGPT) 24 U/L (8-55); AST (SGOT) 18 U/L (5-34); Albumin 2.4 g/dL (3.5-5.0); Alkaline Phosphatase 74 U/L (40-110); Anion Gap 15 mmol/L (10-20); BUN (Urea Nitrogen) 7 mg/dL (8.9-20.6); Bilirubin, Total 0.9 mg/dL (0.2-1.2); Calc. Creatinine Clearance 168 mL/min (70-130); Calcium 8.5 mg/dL (7.8-10.44); Carbon Dioxide 24 mmol/L (22-29); Chloride 98 mmol/L (98-107); Estimated GFR 126; Globulin 3.8 g/dL (2.4-3.5); Glucose 101 mg/dL (70-105); Potassium 4.3 mmol/L (3.5-5.1); Protein, Total 6.2 g/dL (6.0-8.3); Sodium 133 mmol/L (136-145)
[2022-09-07 07:56] LABS: Band 4 % (5-11); Eosinophils 4 % (0-10); Lymphocytes 26 % (21-51); MDiff Complete? YES; Monocytes 14 % (0-10); Neutrophil 52 % (42-75); Platelet Morphology Comment Appears Increased; Vacuoles SLIGHT
[2022-09-07] MEDS: Ferrous Sulfate 325 MG TAB PO SCH (09:16)
[2022-09-07] MEDS: Benztropine 1 MG TAB PO SCH (09:17)
[2022-09-07] MEDS: Thiamine 100 MG TAB PO SCH (09:17)
[2022-09-07] MEDS: Folic Acid 1 MG TAB PO SCH (09:17)
[2022-09-07] MEDS: Sulfameth/Trimethoprim DS 800-160mg TAB PO SCH ×2 (09:17→20:41)
[2022-09-07] MEDS: Ziprasidone 20 MG CAP PO SCH ×2 (09:18→20:41)
[2022-09-07] MEDS ORDERED: Morphine 2 MG/ML VIAL SLOW IVP SCH (09:30)
[2022-09-07] MEDS: Calcium Carbonate 600 MG + Vit D TAB PO SCH ×2 (09:47→18:11)
[2022-09-07] MEDS: Ascorbic Acid 500 mg Chewable Tablet PO SCH (09:48)
[2022-09-07] MEDS: Multivitamin W/ Minerals 1 TAB PO SCH (09:48)
[2022-09-07] MEDS ORDERED: Sodium Chloride 0.9% 1,000 ML IV SCH ×2 (13:00→13:04)
[2022-09-07] MEDS: Lactated Ringer's 1,000 ML IV SCH (14:17)
[2022-09-07 18:59] LABS: Anion Gap 13 mmol/L (10-20); BUN (Urea Nitrogen) 6 mg/dL (8.9-20.6); Calc. Creatinine Clearance 159 mL/min (70-130); Calcium 8.4 mg/dL (7.8-10.44); Carbon Dioxide 23 mmol/L (22-29); Chloride 99 mmol/L (98-107); Estimated GFR 124; Glucose 93 mg/dL (70-105); Potassium 4.2 mmol/L (3.5-5.1); Sodium 131 mmol/L (136-145)
[2022-09-08] MEDS: Lactated Ringer's 1,000 ML IV SCH ×4 (00:30→20:40)
[2022-09-08 01:52] LABS: Anion Gap 10 mmol/L (10-20); BUN (Urea Nitrogen) 5 mg/dL (8.9-20.6); Calc. Creatinine Clearance 168 mL/min (70-130); Calcium 8.4 mg/dL (7.8-10.44); Carbon Dioxide 27 mmol/L (22-29); Chloride 99 mmol/L (98-107); Estimated GFR 126; Glucose 97 mg/dL (70-105); Potassium 3.9 mmol/L (3.5-5.1); Sodium 132 mmol/L (136-145)
[2022-09-08 06:55] LABS: Anion Gap 11 mmol/L (10-20); BUN (Urea Nitrogen) 4 mg/dL (8.9-20.6); Band 23 % (5-11); Calc. Creatinine Clearance 168 mL/min (70-130); Calcium 8.5 mg/dL (7.8-10.44); Carbon Dioxide 25 mmol/L (22-29); Chloride 100 mmol/L (98-107); Estimated GFR 126; Glucose 97 mg/dL (70-105); Hemoglobin 10.7 g/dL (14.0-18.0); Hypochromia SLIGHT = 6-15 cells (100X) (0-5/hpf); Lymphocytes 28 % (21-51); MDiff Complete? YES; Mean Corpuscular HGB CONC 32.2 g/dL (32.0-36.0); Mean Corpuscular Hemoglobin 28.2 pg (27.0-31.0); Mean Corpuscular Volume 87.8 fl (78.0-98.0); Mean Platelet Volume 7.2 fL (7.4-10.4); Monocytes 7 % (0-10); Neutrophil 41 % (42-75); Platelet Count 404 10x3/uL (130-400); Platelet Morphology Comment Appears Increased; Potassium 4.3 mmol/L (3.5-5.1); RBC Distribution Width 12.1 % (11.5-14.5); Reactive Lymphocytes 1 % (0-10); Red Blood Cell (RBC) Count 3.78 mill/uL (4.70-6.10); Sodium 132 mmol/L (136-145); White Blood Cell (WBC) Count 5.2 10x3/uL (4.8-10.8)
[2022-09-08] MEDS: Ziprasidone 20 MG CAP PO SCH ×2 (10:38→20:33)
[2022-09-08] MEDS: Benztropine 1 MG TAB PO SCH (10:38)
[2022-09-08] MEDS: Folic Acid 1 MG TAB PO SCH (10:38)
[2022-09-08] MEDS: Multivitamin W/ Minerals 1 TAB PO SCH (10:38)
[2022-09-08] MEDS: Ascorbic Acid 500 mg Chewable Tablet PO SCH (10:39)
[2022-09-08] MEDS: Thiamine 100 MG TAB PO SCH (10:39)
[2022-09-08] MEDS: Sulfameth/Trimethoprim DS 800-160mg TAB PO SCH ×2 (10:39→20:33)
[2022-09-08] MEDS: Ferrous Sulfate 325 MG TAB PO SCH (10:39)
[2022-09-08] MEDS: Calcium Carbonate 600 MG + Vit D TAB PO SCH ×2 (10:40→16:31)
[2022-09-08 13:00] LABS: Anion Gap 12 mmol/L (10-20); BUN (Urea Nitrogen) 5 mg/dL (8.9-20.6); Calc. Creatinine Clearance 168 mL/min (70-130); Calcium 8.3 mg/dL (7.8-10.44); Carbon Dioxide 25 mmol/L (22-29); Chloride 99 mmol/L (98-107); Estimated GFR 126; Glucose 101 mg/dL (70-105); Potassium 4.2 mmol/L (3.5-5.1); Sodium 132 mmol/L (136-145)
[2022-09-08 17:01] LABS: Iron 14 ug/dL (65-175); Iron Binding Capacity, Total 106 mcg/dL (261-462)
[2022-09-08] MEDS: traMADol HCl 50 MG TAB PO PRN (20:33)
[2022-09-08] MEDS: Acetaminophen 325 MG TAB PO PRN (20:34)
[2022-09-09] MEDS: Lactated Ringer's 1,000 ML IV SCH ×3 (05:09→23:38)
[2022-09-09 07:37] LABS: Anion Gap 10 mmol/L (10-20); BUN (Urea Nitrogen) 4 mg/dL (8.9-20.6); Calc. Creatinine Clearance 177 mL/min (70-130); Calcium 8.3 mg/dL (7.8-10.44); Carbon Dioxide 25 mmol/L (22-29); Chloride 103 mmol/L (98-107); Estimated GFR 128; Glucose 89 mg/dL (70-105); Magnesium 1.7 mg/dL (1.6-2.6); Phosphorus 3.4 mg/dL (2.3-4.7); Potassium 4.7 mmol/L (3.5-5.1); Sodium 133 mmol/L (136-145)
[2022-09-09 08:20] LABS: Band 31 % (5-11); Eosinophils 1 % (0-10); Hemoglobin 10.1 g/dL (14.0-18.0); Lymphocytes 20 % (21-51); MDiff Complete? YES; Mean Corpuscular Hemoglobin 28.9 pg (27.0-31.0); Mean Corpuscular Volume 87.4 fl (78.0-98.0); Monocytes 12 % (0-10); Neutrophil 33 % (42-75); Platelet Count 368 10x3/uL (130-400); Platelet Morphology Comment Appears Adequate; Polychromasia SLIGHT = 2-3 cells (100X) (0-2/hpf); RBC Distribution Width 12.1 % (11.5-14.5); Reactive Lymphocytes 3 % (0-10); Red Blood Cell (RBC) Count 3.49 mill/uL (4.70-6.10); White Blood Cell (WBC) Count 4.9 10x3/uL (4.8-10.8)
[2022-09-09] MEDS: Folic Acid 1 MG TAB PO SCH (08:38)
[2022-09-09] MEDS: Ascorbic Acid 500 mg Chewable Tablet PO SCH (08:38)
[2022-09-09] MEDS: Benztropine 1 MG TAB PO SCH (08:38)
[2022-09-09] MEDS: Ferrous Sulfate 325 MG TAB PO SCH (08:38)
[2022-09-09] MEDS: Multivitamin W/ Minerals 1 TAB PO SCH (08:39)
[2022-09-09] MEDS: Sulfameth/Trimethoprim DS 800-160mg TAB PO SCH ×3 (08:39→20:09)
[2022-09-09] MEDS: Ziprasidone 20 MG CAP PO SCH ×3 (08:39→20:09)
[2022-09-09] MEDS: Thiamine 100 MG TAB PO SCH (08:39)
[2022-09-09] MEDS: Calcium Carbonate 600 MG + Vit D TAB PO SCH ×2 (08:39→15:17)
[2022-09-09] MEDS: Acetaminophen 325 MG TAB PO PRN (09:42)
[2022-09-09] MEDS: traMADol HCl 50 MG TAB PO PRN (09:43)
[2022-09-09] MEDS ORDERED: Magnesium 2 GM/50 ML(in water) 2 GM in Premix Bag 1 BAG IVPB SCH (10:00)
[2022-09-10 07:54] LABS: #Eosinphils 0.1 thou/uL (0.0-0.7); #Lymphocytes 1.5 thou/uL (1.20-3.40); #Monocytes 0.6 thou/uL (0.11-0.59); #Neutrophils 3.1 thou/uL (1.40-6.50); %Basophils 0.3 % (0.0-1.0); %Eosinophils 2.8 % (0.0-10.0); %Lymphocytes 27.6 % (21.0-51.0); %Monocytes 10.8 % (0.0-10.0); %Neutrophils 58.5 % (42.0-75.0); Hemoglobin 10.2 g/dL (14.0-18.0); Mean Corpuscular HGB CONC 32.2 g/dL (32.0-36.0); Mean Corpuscular Hemoglobin 28.2 pg (27.0-31.0); Mean Corpuscular Volume 87.5 fl (78.0-98.0); Platelet Count 457 10x3/uL (130-400); RBC Distribution Width 12.1 % (11.5-14.5); Red Blood Cell (RBC) Count 3.63 mill/uL (4.70-6.10); White Blood Cell (WBC) Count 5.3 10x3/uL (4.8-10.8)
[2022-09-10 08:08] LABS: Anion Gap 9 mmol/L (10-20); BUN (Urea Nitrogen) 5 mg/dL (8.9-20.6); Calc. Creatinine Clearance 177 mL/min (70-130); Carbon Dioxide 25 mmol/L (22-29); Chloride 101 mmol/L (98-107); Estimated GFR 128; Glucose 117 mg/dL (70-105); Potassium 4.3 mmol/L (3.5-5.1); Sodium 131 mmol/L (136-145)
[2022-09-10] MEDS: Lactated Ringer's 1,000 ML IV SCH ×2 (08:54→16:25)
[2022-09-10] MEDS: Ascorbic Acid 500 mg Chewable Tablet PO SCH (08:55)
[2022-09-10] MEDS: Thiamine 100 MG TAB PO SCH (08:55)
[2022-09-10] MEDS: Multivitamin W/ Minerals 1 TAB PO SCH (08:55)
[2022-09-10] MEDS: Benztropine 1 MG TAB PO SCH (08:55)
[2022-09-10] MEDS: Calcium Carbonate 600 MG + Vit D TAB PO SCH ×2 (08:55→16:24)
[2022-09-10] MEDS: Acetaminophen 325 MG TAB PO PRN (08:55)
[2022-09-10] MEDS: Sulfameth/Trimethoprim DS 800-160mg TAB PO SCH ×2 (08:55→19:57)
[2022-09-10] MEDS: Ziprasidone 20 MG CAP PO SCH ×2 (08:56→19:57)
[2022-09-10] MEDS: Folic Acid 1 MG TAB PO SCH (08:56)
[2022-09-10] MEDS: Ferrous Sulfate 325 MG TAB PO SCH (08:56)
[2022-09-10] MEDS: traMADol HCl 50 MG TAB PO PRN (19:57)
[2022-09-11] MEDS: Lactated Ringer's 1,000 ML IV SCH ×2 (00:21→09:14)
[2022-09-11] MEDS: Ziprasidone 20 MG CAP PO SCH ×2 (09:14→20:36)
[2022-09-11] MEDS: Sulfameth/Trimethoprim DS 800-160mg TAB PO SCH ×2 (09:15→20:36)
[2022-09-11] MEDS: Ferrous Sulfate 325 MG TAB PO SCH (09:15)
[2022-09-11] MEDS: Benztropine 1 MG TAB PO SCH (09:15)
[2022-09-11] MEDS: Multivitamin W/ Minerals 1 TAB PO SCH (09:15)
[2022-09-11] MEDS: Folic Acid 1 MG TAB PO SCH (09:15)
[2022-09-11] MEDS: Calcium Carbonate 600 MG + Vit D TAB PO SCH ×2 (09:15→17:42)
[2022-09-11] MEDS: Thiamine 100 MG TAB PO SCH (09:15)
[2022-09-11] MEDS: Ascorbic Acid 500 mg Chewable Tablet PO SCH (09:15)
[2022-09-11] MEDS: traMADol HCl 50 MG TAB PO PRN (20:36)
[2022-09-12] MEDS: Sulfameth/Trimethoprim DS 800-160mg TAB PO SCH ×2 (08:49→21:14)
[2022-09-12] MEDS: traMADol HCl 50 MG TAB PO PRN (08:49)
[2022-09-12] MEDS: Ascorbic Acid 500 mg Chewable Tablet PO SCH (08:50)
[2022-09-12] MEDS: Calcium Carbonate 600 MG + Vit D TAB PO SCH ×2 (08:50→16:07)
[2022-09-12] MEDS: Benztropine 1 MG TAB PO SCH (08:50)
[2022-09-12] MEDS: Multivitamin W/ Minerals 1 TAB PO SCH (08:50)
[2022-09-12] MEDS: Folic Acid 1 MG TAB PO SCH (08:50)
[2022-09-12] MEDS: Thiamine 100 MG TAB PO SCH (08:51)
[2022-09-12] MEDS: Ziprasidone 20 MG CAP PO SCH ×2 (08:51→21:14)
[2022-09-12] MEDS: Ferrous Sulfate 325 MG TAB PO SCH (08:51)
[2022-09-12] MEDS ORDERED: Lactated Ringer's 1,000 ML IV SCH (14:00)
[2022-09-13] MEDS: Ferrous Sulfate 325 MG TAB PO SCH (10:53)
[2022-09-13] MEDS: Ziprasidone 20 MG CAP PO SCH ×2 (10:53→19:58)
[2022-09-13] MEDS: Calcium Carbonate 600 MG + Vit D TAB PO SCH ×2 (10:53→17:05)
[2022-09-13] MEDS: Benztropine 1 MG TAB PO SCH (10:53)
[2022-09-13] MEDS: Ascorbic Acid 500 mg Chewable Tablet PO SCH (10:54)
[2022-09-13] MEDS: Sulfameth/Trimethoprim DS 800-160mg TAB PO SCH ×2 (10:54→19:58)
[2022-09-13] MEDS: Folic Acid 1 MG TAB PO SCH (10:54)
[2022-09-13] MEDS: Thiamine 100 MG TAB PO SCH (10:54)
[2022-09-13] MEDS: Multivitamin W/ Minerals 1 TAB PO SCH (10:54)
[2022-09-13] MEDS ORDERED: Lactated Ringer's 1,000 ML IV SCH (15:30)
[2022-09-13] MEDS: Lactated Ringer's 1,000 ML IV SCH (15:42)
[2022-09-14] MEDS: Lactated Ringer's 1,000 ML IV SCH (01:42)
[2022-09-14] MEDS: Multivitamin W/ Minerals 1 TAB PO SCH (08:59)
[2022-09-14] MEDS: Benztropine 1 MG TAB PO SCH (08:59)
[2022-09-14] MEDS: Ascorbic Acid 500 mg Chewable Tablet PO SCH (08:59)
[2022-09-14] MEDS: Ferrous Sulfate 325 MG TAB PO SCH (08:59)
[2022-09-14] MEDS: Thiamine 100 MG TAB PO SCH (08:59)
[2022-09-14] MEDS: Calcium Carbonate 600 MG + Vit D TAB PO SCH ×2 (08:59→16:44)
[2022-09-14] MEDS: Sulfameth/Trimethoprim DS 800-160mg TAB PO SCH ×2 (08:59→20:49)
[2022-09-14] MEDS: Folic Acid 1 MG TAB PO SCH (08:59)
[2022-09-14] MEDS: Ziprasidone 20 MG CAP PO SCH ×2 (09:00→20:49)
[2022-09-15] MEDS: Folic Acid 1 MG TAB PO SCH (09:15)
[2022-09-15] MEDS: Ferrous Sulfate 325 MG TAB PO SCH (09:16)
[2022-09-15] MEDS: Sulfameth/Trimethoprim DS 800-160mg TAB PO SCH ×2 (09:16→20:35)
[2022-09-15] MEDS: Multivitamin W/ Minerals 1 TAB PO SCH (09:16)
[2022-09-15] MEDS: Benztropine 1 MG TAB PO SCH (09:16)
[2022-09-15] MEDS: Thiamine 100 MG TAB PO SCH (09:16)
[2022-09-15] MEDS: Ascorbic Acid 500 mg Chewable Tablet PO SCH (09:16)
[2022-09-15] MEDS: Calcium Carbonate 600 MG + Vit D TAB PO SCH ×2 (09:17→17:04)
[2022-09-15] MEDS: Ziprasidone 20 MG CAP PO SCH ×2 (09:18→20:35)
[2022-09-15] MEDS: oxyCODONE 5 MG TAB PO PRN (11:29)
[2022-09-15] MEDS: Acetaminophen 325 MG TAB PO PRN (20:40)
[2022-09-16] MEDS: Ferrous Sulfate 325 MG TAB PO SCH (09:21)
[2022-09-16] MEDS: Calcium Carbonate 600 MG + Vit D TAB PO SCH ×2 (09:21→18:00)
[2022-09-16] MEDS: Ascorbic Acid 500 mg Chewable Tablet PO SCH (09:21)
[2022-09-16] MEDS: Multivitamin W/ Minerals 1 TAB PO SCH (09:22)
[2022-09-16] MEDS: Folic Acid 1 MG TAB PO SCH (09:22)
[2022-09-16] MEDS: Thiamine 100 MG TAB PO SCH (09:23)
[2022-09-16] MEDS: Ziprasidone 20 MG CAP PO SCH ×2 (11:40→21:23)
[2022-09-16] MEDS: Benztropine 1 MG TAB PO SCH (11:40)
[2022-09-17] MEDS: Benztropine 1 MG TAB PO SCH (08:49)
[2022-09-17] MEDS: Ziprasidone 20 MG CAP PO SCH ×2 (08:51→21:43)
[2022-09-17] MEDS: Calcium Carbonate 600 MG + Vit D TAB PO SCH ×2 (08:55→17:06)
[2022-09-17] MEDS: Thiamine 100 MG TAB PO SCH (08:55)
[2022-09-17] MEDS: Multivitamin W/ Minerals 1 TAB PO SCH (08:55)
[2022-09-17] MEDS: Ascorbic Acid 500 mg Chewable Tablet PO SCH (08:55)
[2022-09-17] MEDS: Folic Acid 1 MG TAB PO SCH (08:55)
[2022-09-17] MEDS: Ferrous Sulfate 325 MG TAB PO SCH (08:55)
[2022-09-17 09:15] LABS: ALT (SGPT) 18 U/L (8-55); AST (SGOT) 13 U/L (5-34); Albumin 2.4 g/dL (3.5-5.0); Alkaline Phosphatase 72 U/L (40-110); Anion Gap 13 mmol/L (10-20); BUN (Urea Nitrogen) 6 mg/dL (8.9-20.6); Bilirubin, Total 0.7 mg/dL (0.2-1.2); Calc. Creatinine Clearance 159 mL/min (70-130); Calcium 8.7 mg/dL (7.8-10.44); Carbon Dioxide 25 mmol/L (22-29); Chloride 98 mmol/L (98-107); Estimated GFR 124; Globulin 4.2 g/dL (2.4-3.5); Glucose 102 mg/dL (70-105); Potassium 4.1 mmol/L (3.5-5.1); Protein, Total 6.6 g/dL (6.0-8.3); Sodium 132 mmol/L (136-145)
[2022-09-17] MEDS: Sodium Chloride 0.9% 1,000 ML IV SCH (17:15)
[2022-09-17] MEDS: Metoprolol Tartrate 25 MG TAB PO SCH (21:43)
[2022-09-17] MEDS: Acetaminophen 325 MG TAB PO PRN (21:43)
[2022-09-18] MEDS: Sodium Chloride 0.9% 1,000 ML IV SCH ×2 (06:01→18:03)
[2022-09-18 08:20] LABS: Hemoglobin 10.4 g/dL (14.0-18.0); Platelet Count 650 10x3/uL (130-400)
[2022-09-18 08:40] LABS: ALT (SGPT) 21 U/L (8-55); AST (SGOT) 17 U/L (5-34); Albumin 2.4 g/dL (3.5-5.0); Alkaline Phosphatase 80 U/L (40-110); Anion Gap 12 mmol/L (10-20); BUN (Urea Nitrogen) 6 mg/dL (8.9-20.6); Bilirubin, Total 0.7 mg/dL (0.2-1.2); Calc. Creatinine Clearance 162 mL/min (70-130); Carbon Dioxide 26 mmol/L (22-29); Chloride 98 mmol/L (98-107); Estimated GFR 125; Globulin 4.4 g/dL (2.4-3.5); Glucose 114 mg/dL (70-105); Potassium 4.3 mmol/L (3.5-5.1); Protein, Total 6.8 g/dL (6.0-8.3); Sodium 132 mmol/L (136-145)
[2022-09-18] MEDS: Calcium Carbonate 600 MG + Vit D TAB PO SCH ×2 (08:40→15:21)
[2022-09-18] MEDS: Metoprolol Tartrate 25 MG TAB PO SCH ×2 (08:40→21:06)
[2022-09-18] MEDS: Ferrous Sulfate 325 MG TAB PO SCH (08:40)
[2022-09-18] MEDS: Benztropine 1 MG TAB PO SCH (08:40)
[2022-09-18] MEDS: Folic Acid 1 MG TAB PO SCH (08:40)
[2022-09-18] MEDS: Ascorbic Acid 500 mg Chewable Tablet PO SCH (08:40)
[2022-09-18] MEDS: Thiamine 100 MG TAB PO SCH (08:41)
[2022-09-18] MEDS: Acetaminophen 500 MG TAB PO PRN ×2 (08:41→21:04)
[2022-09-18] MEDS: Multivitamin W/ Minerals 1 TAB PO SCH (08:41)
[2022-09-18] MEDS: Ziprasidone 20 MG CAP PO SCH ×2 (08:41→21:04)
[2022-09-18] MEDS ORDERED: Piperacillin/Tazobactam 3.375 GM in Sodium Chloride 0.9% 100 ML IVPB SCH ×2 (17:45→18:00)
[2022-09-18] MEDS ORDERED: Vancomycin 1.5 GRAM/300 ML BAG 1.5 GM in Premix Bag 1 BAG IVPB SCH (18:00)
[2022-09-18] MEDS: Piperacillin/Tazobactam 3.375 GM in Sodium Chloride 0.9% 100 ML IVPB SCH (20:58)
[2022-09-18] MEDS ORDERED: Vancomycin 1 GM in Premix Bag 1 BAG IVPB SCH (21:00)
[2022-09-19] MEDS: VANCOMYCIN 1.25 GM/250 ML BAG 1.25 GM in Premix Bag 1 BAG IVPB SCH ×3 (02:43→17:32)
[2022-09-19] MEDS: Piperacillin/Tazobactam 3.375 GM in Sodium Chloride 0.9% 100 ML IVPB SCH ×3 (05:58→21:37)
[2022-09-19] MEDS: Benztropine 1 MG TAB PO SCH (08:20)
[2022-09-19] MEDS: Ascorbic Acid 500 mg Chewable Tablet PO SCH (08:20)
[2022-09-19] MEDS: Calcium Carbonate 600 MG + Vit D TAB PO SCH ×2 (08:20→15:29)
[2022-09-19] MEDS: Folic Acid 1 MG TAB PO SCH (08:20)
[2022-09-19] MEDS: Ferrous Sulfate 325 MG TAB PO SCH (08:20)
[2022-09-19] MEDS: Ziprasidone 20 MG CAP PO SCH ×2 (08:21→21:53)
[2022-09-19] MEDS: Metoprolol Tartrate 25 MG TAB PO SCH ×2 (08:21→21:38)
[2022-09-19] MEDS: Multivitamin W/ Minerals 1 TAB PO SCH (08:21)
[2022-09-19] MEDS: Thiamine 100 MG TAB PO SCH (08:21)
[2022-09-19] MEDS: Sodium Chloride 0.9% 1,000 ML IV SCH ×2 (08:21→21:37)
[2022-09-19] MEDS: oxyCODONE 5 MG TAB PO PRN (10:37)
[2022-09-19 13:06] LABS: Hemoglobin 10.2 g/dL (14.0-18.0); Mean Corpuscular HGB CONC 31.8 g/dL (32.0-36.0); Mean Corpuscular Hemoglobin 27.4 pg (27.0-31.0); Mean Corpuscular Volume 86.3 fl (78.0-98.0); Mean Platelet Volume 6.3 fL (7.4-10.4); Platelet Count 614 10x3/uL (130-400); RBC Distribution Width 12.4 % (11.5-14.5); Red Blood Cell (RBC) Count 3.73 mill/uL (4.70-6.10); White Blood Cell (WBC) Count 6.9 10x3/uL (4.8-10.8)
[2022-09-19 13:23] LABS: Anion Gap 13 mmol/L (10-20); BUN (Urea Nitrogen) 7 mg/dL (8.9-20.6); Calc. Creatinine Clearance 168 mL/min (70-130); Calcium 8.6 mg/dL (7.8-10.44); Carbon Dioxide 22 mmol/L (22-29); Chloride 98 mmol/L (98-107); Estimated GFR 126; Glucose 100 mg/dL (70-105); Potassium 4.4 mmol/L (3.5-5.1); Sodium 129 mmol/L (136-145)
[2022-09-19 13:39] LABS: Band 11 % (5-11); Lymphocytes 34 % (21-51); MDiff Complete? YES; Monocytes 15 % (0-10); Neutrophil 40 % (42-75); Platelet Morphology Comment Appears Increased; Polychromasia SLIGHT = 2-3 cells (100X) (0-2/hpf)
[2022-09-19] MEDS: Acetaminophen 500 MG TAB PO PRN (21:53)
[2022-09-20] MEDS: VANCOMYCIN 1.25 GM/250 ML BAG 1.25 GM in Premix Bag 1 BAG IVPB SCH ×3 (01:38→17:52)
[2022-09-20] MEDS: Piperacillin/Tazobactam 3.375 GM in Sodium Chloride 0.9% 100 ML IVPB SCH ×3 (05:17→21:24)
[2022-09-20 06:40] LABS: #Eosinphils 0.1 thou/uL (0.0-0.7); #Lymphocytes 2.6 thou/uL (1.20-3.40); #Monocytes 1.1 thou/uL (0.11-0.59); #Neutrophils 3.3 thou/uL (1.40-6.50); %Basophils 0.7 % (0.0-1.0); %Eosinophils 1.4 % (0.0-10.0); %Lymphocytes 36.4 % (21.0-51.0); %Monocytes 14.8 % (0.0-10.0); %Neutrophils 46.8 % (42.0-75.0); Hemoglobin 10.3 g/dL (14.0-18.0); Mean Corpuscular HGB CONC 32.7 g/dL (32.0-36.0); Mean Corpuscular Hemoglobin 28.5 pg (27.0-31.0); Mean Corpuscular Volume 87.2 fl (78.0-98.0); Mean Platelet Volume 6.4 fL (7.4-10.4); Platelet Count 602 10x3/uL (130-400); RBC Distribution Width 12.5 % (11.5-14.5); Red Blood Cell (RBC) Count 3.61 mill/uL (4.70-6.10); White Blood Cell (WBC) Count 7.1 10x3/uL (4.8-10.8)
[2022-09-20 07:00] LABS: Anion Gap 14 mmol/L (10-20); BUN (Urea Nitrogen) 6 mg/dL (8.9-20.6); Calc. Creatinine Clearance 174 mL/min (70-130); Carbon Dioxide 27 mmol/L (22-29); Chloride 98 mmol/L (98-107); Estimated GFR 128; Glucose 85 mg/dL (70-105); Potassium 4.2 mmol/L (3.5-5.1); Sodium 135 mmol/L (136-145)
[2022-09-20] MEDS: Folic Acid 1 MG TAB PO SCH (08:31)
[2022-09-20] MEDS: Metoprolol Tartrate 25 MG TAB PO SCH ×2 (08:31→21:23)
[2022-09-20] MEDS: Calcium Carbonate 600 MG + Vit D TAB PO SCH ×2 (08:31→16:09)
[2022-09-20] MEDS: Ferrous Sulfate 325 MG TAB PO SCH (08:31)
[2022-09-20] MEDS: Ziprasidone 20 MG CAP PO SCH ×2 (08:31→21:24)
[2022-09-20] MEDS: Thiamine 100 MG TAB PO SCH (08:31)
[2022-09-20] MEDS: Multivitamin W/ Minerals 1 TAB PO SCH (08:31)
[2022-09-20] MEDS: Ascorbic Acid 500 mg Chewable Tablet PO SCH (08:31)
[2022-09-20] MEDS: Benztropine 1 MG TAB PO SCH (08:31)
[2022-09-20] MEDS: Sodium Chloride 0.9% 1,000 ML IV SCH (12:12)
[2022-09-21] MEDS: VANCOMYCIN 1.25 GM/250 ML BAG 1.25 GM in Premix Bag 1 BAG IVPB SCH ×3 (01:31→17:00)
[2022-09-21] MEDS: Sodium Chloride 0.9% 1,000 ML IV SCH ×3 (01:31→14:19)
[2022-09-21] MEDS: Piperacillin/Tazobactam 3.375 GM in Sodium Chloride 0.9% 100 ML IVPB SCH ×2 (05:27→14:19)
[2022-09-21] MEDS: Ascorbic Acid 500 mg Chewable Tablet PO SCH (14:17)
[2022-09-21] MEDS: Calcium Carbonate 600 MG + Vit D TAB PO SCH ×2 (14:17→17:00)
[2022-09-21] MEDS: Benztropine 1 MG TAB PO SCH ×2 (14:17→14:28)
[2022-09-21] MEDS: Ferrous Sulfate 325 MG TAB PO SCH (14:17)
[2022-09-21] MEDS: Thiamine 100 MG TAB PO SCH (14:18)
[2022-09-21] MEDS: Folic Acid 1 MG TAB PO SCH (14:18)
[2022-09-21] MEDS: Metoprolol Tartrate 25 MG TAB PO SCH (14:18)
[2022-09-21] MEDS: Ziprasidone 20 MG CAP PO SCH (14:18)
[2022-09-21] MEDS: Multivitamin W/ Minerals 1 TAB PO SCH (14:18)
[2022-09-22] MEDS: Ziprasidone 20 MG CAP PO SCH ×2 (01:47→08:33)
[2022-09-22] MEDS: Metoprolol Tartrate 25 MG TAB PO SCH ×2 (01:47→08:33)
[2022-09-22] MEDS: Piperacillin/Tazobactam 3.375 GM in Sodium Chloride 0.9% 100 ML IVPB SCH ×3 (01:48→13:46)
[2022-09-22] MEDS: Sodium Chloride 0.9% 1,000 ML IV SCH ×2 (01:48→18:31)
[2022-09-22] MEDS: VANCOMYCIN 1.25 GM/250 ML BAG 1.25 GM in Premix Bag 1 BAG IVPB SCH ×3 (01:48→19:27)
[2022-09-22 07:09] LABS: Hemoglobin 8.6 g/dL (14.0-18.0); Mean Corpuscular HGB CONC 32.3 g/dL (32.0-36.0); Mean Corpuscular Volume 86.8 fl (78.0-98.0); Mean Platelet Volume 6.3 fL (7.4-10.4); Platelet Count 620 10x3/uL (130-400); RBC Distribution Width 12.3 % (11.5-14.5); Red Blood Cell (RBC) Count 3.06 mill/uL (4.70-6.10); White Blood Cell (WBC) Count 6.7 10x3/uL (4.8-10.8)
[2022-09-22 07:16] LABS: #Eosinphils 0.1 thou/uL (0.0-0.7); #Lymphocytes 2.4 thou/uL (1.20-3.40); #Neutrophils 3.6 thou/uL (1.40-6.50); %Basophils 0.2 % (0.0-1.0); %Eosinophils 0.7 % (0.0-10.0); %Lymphocytes 33.9 % (21.0-51.0); %Monocytes 13.9 % (0.0-10.0); %Neutrophils 51.2 % (42.0-75.0)
[2022-09-22 07:19] LABS: Anion Gap 12 mmol/L (10-20); BUN (Urea Nitrogen) 6 mg/dL (8.9-20.6); Calc. Creatinine Clearance 165 mL/min (70-130); Calcium 8.4 mg/dL (7.8-10.44); Carbon Dioxide 25 mmol/L (22-29); Chloride 100 mmol/L (98-107); Estimated GFR 125; Glucose 113 mg/dL (70-105); Potassium 3.8 mmol/L (3.5-5.1); Sodium 133 mmol/L (136-145)
[2022-09-22] MEDS: Ferrous Sulfate 325 MG TAB PO SCH (08:32)
[2022-09-22] MEDS: Benztropine 1 MG TAB PO SCH (08:32)
[2022-09-22] MEDS: Calcium Carbonate 600 MG + Vit D TAB PO SCH ×2 (08:32→18:31)
[2022-09-22] MEDS: Ascorbic Acid 500 mg Chewable Tablet PO SCH (08:32)
[2022-09-22] MEDS: Folic Acid 1 MG TAB PO SCH (08:33)
[2022-09-22] MEDS: Thiamine 100 MG TAB PO SCH (08:33)
[2022-09-22] MEDS: Multivitamin W/ Minerals 1 TAB PO SCH (08:33)
[2022-09-22 10:37] VITALS: BP 99/62; TEMP 99.2
== END 2022-09-22 20:35 | disposition home or self-care (01) | DRG 872 ==
LOC: EDBD 12:20 → ERS 12:20 → 2NO 17:55 → T4-A 08-26 14:41 → T4-B 09-08 13:28
PROVIDERS: ADMIT Physician Assistant; ATTEND Hospitalist
DX: A41.9 Sepsis, unspecified organism (principal); E87.20 Acidosis, unspecified; R64 Cachexia; I96 Gangrene, not elsewhere classified; L03.115 Cellulitis of right lower limb; L03.116 Cellulitis of left lower limb; E22.2 Syndrome of inappropriate secretion of antidiuretic hormone; E44.0 Moderate protein-calorie malnutrition; E87.5 Hyperkalemia; D63.8 Anemia in other chronic diseases classified elsewhere; S81.802A Unspecified open wound, left lower leg, initial encounter; S81.801A Unspecified open wound, right lower leg, initial encounter; X58.XXXA Exposure to other specified factors, initial encounter; F25.9 Schizoaffective disorder, unspecified; Z68.20 Body mass index [BMI] 20.0-20.9, adult; Z59.00 Homelessness unspecified
CPT/HCPCS: 36415; 36416; 71045; 72148; 75635; 76705; 76870; 80048; 80053; 80202; 80306; 80307; 82533; 82728; 82805; 83036; 83540; 83550; 83605; 83735; 83880; 83930; 83935; 84100; 84145; 84300; 84443; 84484; 85014; 85018; 85025; 85049; 85610; 85730; 86140; 86704; 86706; 86803; 87040; 87070; 87077; 87186; 87205; 87340; 87389; 87811; 93005; 93010; 93976; 94760; 96365; 96366; 96367; 96375; 97139; 99292; J0692; J1650; J1815; J2270; J2272; J2543; J3370; J3370-JW; J3475; J3490; J7050; J7120; J7611; J7999; Q9967

== ENCOUNTER 2022-09-25 16:44 | Inpatient (IN) | payer OTHER, SELFPAY ==
[2022-09-25 17:38] LABS: Mean Corpuscular HGB CONC 33.6 g/dL (32.0-36.0); Mean Corpuscular Hemoglobin 27.8 pg (27.0-31.0); Mean Corpuscular Volume 82.9 fl (78.0-98.0); Platelet Count 661 10x3/uL (130-400); RBC Distribution Width 13.1 % (11.5-14.5); White Blood Cell (WBC) Count 27.9 10x3/uL (4.8-10.8)
[2022-09-25] MEDS ORDERED: Cefepime 2 GM VIAL ONE (17:43)
[2022-09-25] MEDS ORDERED: Clindamycin/D5W 900 mg/50 ml Premix Bag ONE (17:43)
[2022-09-25 17:56] LABS: ALT (SGPT) 14 U/L (8-55); AST (SGOT) 13 U/L (5-34); Albumin 3.1 g/dL (3.5-5.0); Alkaline Phosphatase 116 U/L (40-110); Anion Gap 22 mmol/L (10-20); BUN (Urea Nitrogen) 54 mg/dL (8.9-20.6); Bilirubin, Total 0.7 mg/dL (0.2-1.2); Calc. Creatinine Clearance 0 mL/min (70-130); Calcium 9.3 mg/dL (7.8-10.44); Carbon Dioxide 19 mmol/L (22-29); Chloride 90 mmol/L (98-107); Estimated GFR 30; Globulin 4.7 g/dL (2.4-3.5); Glucose 125 mg/dL (70-105); Protein, Total 7.8 g/dL (6.0-8.3); Sodium 125 mmol/L (136-145)
[2022-09-25 18:01] LABS: Potassium 6.1 mmol/L (3.5-5.1)
[2022-09-25 18:05] LABS: Lymphocytes 9 % (21-51); MDiff Complete? YES; Monocytes 7 % (0-10); Neutrophil 84 % (42-75); Platelet Adequacy Comment Appears Increased; Polychromasia SLIGHT = 2-3 cells (100X) (0-2/hpf)
[2022-09-25] MEDS ORDERED: VANCOMYCIN 1.75 GM/500 ML BAG 1.75 GM in Premix Bag 1 BAG IVPB SCH (18:15)
[2022-09-25 19:42] LABS: Actual Bicarbonate (HCO3v) 22 mEq/L (22-28); Base Excess -4.9 mEq/L (-2.0 to +3.0); Calcium, Ionized (venous) 1.07 mmol/L (1.16-1.32); Chloride (VBG) 90 mmol/L (98-106); Hemoglobin (Hb) 12.8 g/dL (13.2-17.3); Sodium 124.7 mmol/L (133-146); pH (venous) 7.28 (7.32-7.43)
[2022-09-25] MEDS ORDERED: Ondansetron ODT 4 MG TAB PO PRN (20:03)
[2022-09-25] MEDS ORDERED: Ondansetron PF 4 MG/2 ML Vial IVP PRN (20:03)
[2022-09-25] MEDS ORDERED: Acetaminophen 650 MG Suppository PR PRN (20:03)
[2022-09-25] MEDS ORDERED: Acetaminophen 325 MG TAB PO PRN (20:03)
[2022-09-25] MEDS ORDERED: Insulin Regular 300 UNITS/3 ML VIAL ONE (20:12)
[2022-09-25] MEDS ORDERED: Furosemide 40 MG/4 ML VIAL ONE (20:12)
[2022-09-25] MEDS ORDERED: Calcium Gluc 4.6 MEQ/10 ML (100 MG/ML) ONE (20:12)
[2022-09-25] MEDS ORDERED: LOKELMA 10 GM PACKET PO SCH (20:15)
[2022-09-25] MEDS ORDERED: Sodium Chloride 0.9% 500 ML IV SCH ×3 (20:15→22:15)
[2022-09-25 20:53] LABS: Lactic Acid 3.5 mmol/L (0.5-2.2)
[2022-09-25 21:41] LABS: Bilirubin Negative (Negative); Blood, Urine Negative (Negative); Clarity Turbid (Clear); Glucose, Urine (Dipstick) Normal (Negative); Ketone, Urine Negative (Negative); Leukocyte Negative Leu/uL (Negative); Nitrite Negative (Negative); Protein, Urine (Dipstick) 10 mg/dL (Neg-Trace); Specific Gravity, Urine 1.013 (1.002-1.036); Urobilinogen Normal mg/dL (Less than 2)
[2022-09-25] MEDS: Vancomycin 1.5 GRAM/300 ML BAG 1.5 GM in Premix Bag 1 BAG IVPB SCH ×2 (22:57→23:13)
[2022-09-25] MEDS: Sodium Chloride 0.9% 1,000 ML IV SCH (23:34)
[2022-09-26] MEDS: Clindamycin/D5W 900 MG in Premix Bag 1 BAG IVPB SCH ×3 (00:22→16:32)
[2022-09-26] MEDS ORDERED: Vancomycin HCl 1.5 GM in Sodium Chloride 0.9% 250 ML 300 ML IVPB SCH (05:00)
[2022-09-26] MEDS: Cefepime 1 GM in Sodium Chloride 0.9% 100 ML IVPB SCH ×2 (05:13→17:56)
[2022-09-26] MEDS: Sodium Chloride 0.9% 1,000 ML IV SCH ×3 (05:24→16:32)
[2022-09-26 05:35] LABS: Hemoglobin 9.7 g/dL (14.0-18.0); Mean Corpuscular HGB CONC 32.1 g/dL (32.0-36.0); Mean Corpuscular Hemoglobin 27.4 pg (27.0-31.0); Mean Corpuscular Volume 85.4 fl (78.0-98.0); Mean Platelet Volume 6.5 fL (7.4-10.4); Platelet Count 541 10x3/uL (130-400); RBC Distribution Width 13.1 % (11.5-14.5); Red Blood Cell (RBC) Count 3.55 mill/uL (4.70-6.10); White Blood Cell (WBC) Count 26.5 10x3/uL (4.8-10.8)
[2022-09-26 05:40] LABS: Lactic Acid 2.8 mmol/L (0.5-2.2)
[2022-09-26 05:48] LABS: Chloride 97 mmol/L (98-107); Potassium 4.5 mmol/L (3.5-5.1); Sodium 128 mmol/L (136-145)
[2022-09-26 05:49] LABS: Calcium 8.1 mg/dL (7.8-10.44); Glucose 80 mg/dL (70-105)
[2022-09-26 05:51] LABS: Anion Gap 17 mmol/L (10-20); Carbon Dioxide 19 mmol/L (22-29)
[2022-09-26 05:53] LABS: BUN (Urea Nitrogen) 46 mg/dL (8.9-20.6); Calc. Creatinine Clearance 44 mL/min (70-130); Estimated GFR 49
[2022-09-26 06:33] LABS: Lymphocytes 12 % (21-51); MDiff Complete? YES; Monocytes 4 % (0-10); Neutrophil 84 % (42-75); Platelet Adequacy Comment Appears Increased; Polychromasia SLIGHT = 2-3 cells (100X) (0-2/hpf)
[2022-09-26] MEDS: Calcium Carbonate 600 MG + Vit D TAB PO SCH (17:56)
[2022-09-26] MEDS: Ziprasidone 20 MG CAP PO SCH (20:53)
[2022-09-26] MEDS: Metoprolol Tartrate 25 MG TAB PO SCH (20:53)
[2022-09-26] MEDS ORDERED: Vancomycin HCl 750 MG in Sodium Chloride 0.9% 250 ML 250 ML IVPB SCH (23:00)
[2022-09-27] MEDS: Clindamycin/D5W 900 MG in Premix Bag 1 BAG IVPB SCH ×3 (01:13→16:27)
[2022-09-27] MEDS: Sodium Chloride 0.9% 1,000 ML IV SCH ×2 (01:13→11:56)
[2022-09-27] MEDS: Cefepime 1 GM in Sodium Chloride 0.9% 100 ML IVPB SCH (05:24)
[2022-09-27 06:00] LABS: #Basophils 0.1 thou/uL (0.0-0.2); #Eosinphils 0.1 thou/uL (0.0-0.7); #Lymphocytes 1.9 thou/uL (1.20-3.40); #Monocytes 1.4 thou/uL (0.11-0.59); #Neutrophils 15.3 thou/uL (1.40-6.50); %Basophils 0.4 % (0.0-1.0); %Eosinophils 0.3 % (0.0-10.0); %Lymphocytes 10.1 % (21.0-51.0); %Monocytes 7.4 % (0.0-10.0); %Neutrophils 81.9 % (42.0-75.0); Hemoglobin 7.1 g/dL (14.0-18.0); Mean Corpuscular Hemoglobin 28.4 pg (27.0-31.0); Mean Corpuscular Volume 86.1 fl (78.0-98.0); Mean Platelet Volume 6.5 fL (7.4-10.4); Platelet Count 409 10x3/uL (130-400); RBC Distribution Width 12.9 % (11.5-14.5); White Blood Cell (WBC) Count 18.7 10x3/uL (4.8-10.8)
[2022-09-27 06:49] LABS: Anion Gap 14 mmol/L (10-20); BUN (Urea Nitrogen) 26 mg/dL (8.9-20.6); Calc. Creatinine Clearance 93 mL/min (70-130); Calcium 7.8 mg/dL (7.8-10.44); Carbon Dioxide 18 mmol/L (22-29); Chloride 103 mmol/L (98-107); Estimated GFR 112; Glucose 82 mg/dL (70-105); Potassium 3.7 mmol/L (3.5-5.1); Sodium 131 mmol/L (136-145)
[2022-09-27] MEDS: Benztropine 1 MG TAB PO SCH ×2 (08:56→09:04)
[2022-09-27] MEDS: Ziprasidone 20 MG CAP PO SCH ×3 (08:56→21:00)
[2022-09-27] MEDS: Ferrous Sulfate 325 MG TAB PO SCH (08:57)
[2022-09-27] MEDS: Ascorbic Acid 500 mg Chewable Tablet PO SCH (08:57)
[2022-09-27] MEDS: Calcium Carbonate 600 MG + Vit D TAB PO SCH ×3 (08:57→16:27)
[2022-09-27] MEDS: Folic Acid 1 MG TAB PO SCH (08:58)
[2022-09-27] MEDS: Metoprolol Tartrate 25 MG TAB PO SCH ×2 (08:59→21:00)
[2022-09-27] MEDS: Multivitamin W/ Minerals 1 TAB PO SCH (08:59)
[2022-09-27] MEDS: Thiamine 100 MG TAB PO SCH (09:00)
[2022-09-27] MEDS: Vancomycin HCl 750 MG in Sodium Chloride 0.9% 250 ML 250 ML IVPB SCH (11:53)
[2022-09-27 14:16] LABS: #Eosinphils 0.1 thou/uL (0.0-0.7); #Monocytes 1.2 thou/uL (0.11-0.59); #Neutrophils 14.4 thou/uL (1.40-6.50); %Eosinophils 0.3 % (0.0-10.0); %Lymphocytes 11.2 % (21.0-51.0); %Monocytes 6.9 % (0.0-10.0); %Neutrophils 81.6 % (42.0-75.0); Mean Corpuscular HGB CONC 33.9 g/dL (32.0-36.0); Mean Corpuscular Hemoglobin 28.5 pg (27.0-31.0); Mean Corpuscular Volume 84.1 fl (78.0-98.0); Mean Platelet Volume 6.6 fL (7.4-10.4); Platelet Count 379 10x3/uL (130-400); RBC Distribution Width 13.1 % (11.5-14.5); Red Blood Cell (RBC) Count 2.46 mill/uL (4.70-6.10); White Blood Cell (WBC) Count 17.7 10x3/uL (4.8-10.8)
[2022-09-27] MEDS: Cefepime 2 GM in Sodium Chloride 0.9% 100 ML IVPB SCH (18:10)
[2022-09-28] MEDS: Vancomycin HCl 750 MG in Sodium Chloride 0.9% 250 ML 250 ML IVPB SCH ×3 (00:30→23:45)
[2022-09-28] MEDS: Sodium Chloride 0.9% 1,000 ML IV SCH ×4 (00:36→21:00)
[2022-09-28] MEDS: Clindamycin/D5W 900 MG in Premix Bag 1 BAG IVPB SCH ×3 (01:45→17:33)
[2022-09-28] MEDS: Cefepime 2 GM in Sodium Chloride 0.9% 100 ML IVPB SCH ×2 (06:23→18:16)
[2022-09-28] MEDS: Calcium Carbonate 600 MG + Vit D TAB PO SCH ×2 (09:08→17:57)
[2022-09-28] MEDS: Ferrous Sulfate 325 MG TAB PO SCH (09:08)
[2022-09-28] MEDS: Ascorbic Acid 500 mg Chewable Tablet PO SCH (09:08)
[2022-09-28] MEDS: Benztropine 1 MG TAB PO SCH (09:08)
[2022-09-28] MEDS: Folic Acid 1 MG TAB PO SCH (09:09)
[2022-09-28] MEDS: Multivitamin W/ Minerals 1 TAB PO SCH (09:09)
[2022-09-28] MEDS: Ziprasidone 20 MG CAP PO SCH ×2 (09:09→21:00)
[2022-09-28] MEDS: Metoprolol Tartrate 25 MG TAB PO SCH ×2 (09:09→21:00)
[2022-09-28] MEDS: Thiamine 100 MG TAB PO SCH (09:09)
[2022-09-28 11:25] LABS: Vancomycin, Trough 15.3 ug/mL
[2022-09-29] MEDS: Clindamycin/D5W 900 MG in Premix Bag 1 BAG IVPB SCH ×3 (01:11→16:05)
[2022-09-29] MEDS ORDERED: FLU VACC QS2022-23(6MO UP)/PF 60 MCG/0.5 ML SYRINGE IM ONE (01:45)
[2022-09-29] MEDS: Sodium Chloride 0.9% 1,000 ML IV SCH ×3 (03:50→20:55)
[2022-09-29] MEDS: Cefepime 2 GM in Sodium Chloride 0.9% 100 ML IVPB SCH ×2 (05:36→17:32)
[2022-09-29] MEDS: Calcium Carbonate 600 MG + Vit D TAB PO SCH ×2 (08:05→16:07)
[2022-09-29] MEDS: Ferrous Sulfate 325 MG TAB PO SCH (08:05)
[2022-09-29] MEDS: Benztropine 1 MG TAB PO SCH (08:05)
[2022-09-29] MEDS: Ascorbic Acid 500 mg Chewable Tablet PO SCH (08:05)
[2022-09-29] MEDS: Folic Acid 1 MG TAB PO SCH (08:05)
[2022-09-29] MEDS: Thiamine 100 MG TAB PO SCH (08:06)
[2022-09-29] MEDS: Multivitamin W/ Minerals 1 TAB PO SCH (08:06)
[2022-09-29] MEDS: Metoprolol Tartrate 25 MG TAB PO SCH ×2 (08:06→20:55)
[2022-09-29] MEDS: Ziprasidone 20 MG CAP PO SCH ×2 (08:07→20:55)
[2022-09-29 09:01] LABS: Hemoglobin 7.2 g/dL (14.0-18.0); Mean Corpuscular HGB CONC 32.6 g/dL (32.0-36.0); Mean Corpuscular Hemoglobin 28.4 pg (27.0-31.0); Mean Corpuscular Volume 87.1 fl (78.0-98.0); Mean Platelet Volume 6.8 fL (7.4-10.4); Platelet Count 372 10x3/uL (130-400); RBC Distribution Width 13.5 % (11.5-14.5); Red Blood Cell (RBC) Count 2.55 mill/uL (4.70-6.10); White Blood Cell (WBC) Count 13.6 10x3/uL (4.8-10.8)
[2022-09-29] MEDS: Vancomycin HCl 750 MG in Sodium Chloride 0.9% 250 ML 250 ML IVPB SCH ×2 (11:48→23:57)
[2022-09-29 14:53] LABS: Potassium (VBG) 6.13 mmol/L (3.70-5.30)
[2022-09-30] MEDS: Clindamycin/D5W 900 MG in Premix Bag 1 BAG IVPB SCH ×3 (01:50→16:29)
[2022-09-30] MEDS: Sodium Chloride 0.9% 1,000 ML IV SCH ×2 (05:21→11:54)
[2022-09-30] MEDS: Cefepime 2 GM in Sodium Chloride 0.9% 100 ML IVPB SCH ×2 (06:11→18:08)
[2022-09-30 06:17] LABS: Lactic Acid 1.2 mmol/L (0.5-2.2)
[2022-09-30 06:29] LABS: Anion Gap 11 mmol/L (10-20); BUN (Urea Nitrogen) 7 mg/dL (8.9-20.6); Calc. Creatinine Clearance 127 mL/min (70-130); Calcium 7.8 mg/dL (7.8-10.44); Carbon Dioxide 17 mmol/L (22-29); Chloride 111 mmol/L (98-107); Estimated GFR 123; Glucose 79 mg/dL (70-105); Potassium 4.6 mmol/L (3.5-5.1); Sodium 134 mmol/L (136-145)
[2022-09-30] MEDS: Ferrous Sulfate 325 MG TAB PO SCH (07:59)
[2022-09-30] MEDS: Calcium Carbonate 600 MG + Vit D TAB PO SCH ×2 (07:59→16:32)
[2022-09-30] MEDS: Benztropine 1 MG TAB PO SCH (08:00)
[2022-09-30] MEDS: Metoprolol Tartrate 25 MG TAB PO SCH ×2 (08:00→22:10)
[2022-09-30] MEDS: Ziprasidone 20 MG CAP PO SCH ×2 (08:00→22:05)
[2022-09-30] MEDS: Ascorbic Acid 500 mg Chewable Tablet PO SCH (08:00)
[2022-09-30] MEDS: Multivitamin W/ Minerals 1 TAB PO SCH (08:00)
[2022-09-30] MEDS: Thiamine 100 MG TAB PO SCH (08:00)
[2022-09-30] MEDS: Folic Acid 1 MG TAB PO SCH (08:00)
[2022-09-30] MEDS: Vancomycin HCl 750 MG in Sodium Chloride 0.9% 250 ML 250 ML IVPB SCH (11:53)
[2022-10-01] MEDS: Sodium Chloride 0.9% 1,000 ML IV SCH ×2 (01:59→05:52)
[2022-10-01] MEDS: Vancomycin HCl 750 MG in Sodium Chloride 0.9% 250 ML 250 ML IVPB SCH ×2 (02:00→12:19)
[2022-10-01] MEDS: Clindamycin/D5W 900 MG in Premix Bag 1 BAG IVPB SCH ×2 (02:01→08:04)
[2022-10-01] MEDS: Cefepime 2 GM in Sodium Chloride 0.9% 100 ML IVPB SCH ×2 (05:51→17:46)
[2022-10-01] MEDS: Ferrous Sulfate 325 MG TAB PO SCH (08:04)
[2022-10-01] MEDS: Ascorbic Acid 500 mg Chewable Tablet PO SCH (08:04)
[2022-10-01] MEDS: Calcium Carbonate 600 MG + Vit D TAB PO SCH ×2 (08:04→16:51)
[2022-10-01] MEDS: Benztropine 1 MG TAB PO SCH (08:04)
[2022-10-01] MEDS: Folic Acid 1 MG TAB PO SCH (08:04)
[2022-10-01] MEDS: Multivitamin W/ Minerals 1 TAB PO SCH (08:05)
[2022-10-01] MEDS: Ziprasidone 20 MG CAP PO SCH ×2 (08:05→20:00)
[2022-10-01] MEDS: Thiamine 100 MG TAB PO SCH (08:05)
[2022-10-01] MEDS: Metoprolol Tartrate 25 MG TAB PO SCH ×2 (08:05→20:00)
[2022-10-01 12:06] LABS: Vancomycin, Trough 12.9 ug/mL
[2022-10-01] MEDS: Vancomycin 1 GM in Premix Bag 1 BAG IVPB SCH ×2 (12:25→23:48)
[2022-10-02] MEDS: Cefepime 2 GM in Sodium Chloride 0.9% 100 ML IVPB SCH ×2 (05:39→18:01)
[2022-10-02] MEDS: Benztropine 1 MG TAB PO SCH (09:40)
[2022-10-02] MEDS: Ascorbic Acid 500 mg Chewable Tablet PO SCH (09:40)
[2022-10-02] MEDS: Calcium Carbonate 600 MG + Vit D TAB PO SCH ×2 (09:40→18:01)
[2022-10-02] MEDS: Ferrous Sulfate 325 MG TAB PO SCH (09:40)
[2022-10-02] MEDS: Multivitamin W/ Minerals 1 TAB PO SCH (09:41)
[2022-10-02] MEDS: Thiamine 100 MG TAB PO SCH (09:41)
[2022-10-02] MEDS: Metoprolol Tartrate 25 MG TAB PO SCH ×2 (09:41→21:29)
[2022-10-02] MEDS: Folic Acid 1 MG TAB PO SCH (09:41)
[2022-10-02] MEDS: Ziprasidone 20 MG CAP PO SCH ×2 (09:42→21:29)
[2022-10-02] MEDS: Vancomycin 1 GM in Premix Bag 1 BAG IVPB SCH (13:20)
[2022-10-02 23:41] LABS: Vancomycin, Trough 17.7 ug/mL
[2022-10-03] MEDS: Vancomycin 1 GM in Premix Bag 1 BAG IVPB SCH ×2 (00:40→12:26)
[2022-10-03] MEDS: Cefepime 2 GM in Sodium Chloride 0.9% 100 ML IVPB SCH ×2 (06:30→18:42)
[2022-10-03 06:33] LABS: Hemoglobin 7.1 g/dL (14.0-18.0); Mean Corpuscular HGB CONC 33.3 g/dL (32.0-36.0); Mean Corpuscular Hemoglobin 28.6 pg (27.0-31.0); Mean Platelet Volume 6.3 fL (7.4-10.4); Platelet Count 362 10x3/uL (130-400); RBC Distribution Width 13.9 % (11.5-14.5); Red Blood Cell (RBC) Count 2.49 mill/uL (4.70-6.10); White Blood Cell (WBC) Count 10.5 10x3/uL (4.8-10.8)
[2022-10-03 06:52] LABS: Anion Gap 9 mmol/L (10-20); BUN (Urea Nitrogen) 8 mg/dL (8.9-20.6); Calc. Creatinine Clearance 186 mL/min (70-130); Calcium 8.1 mg/dL (7.8-10.44); Carbon Dioxide 25 mmol/L (22-29); Chloride 106 mmol/L (98-107); Estimated GFR 125; Glucose 86 mg/dL (70-105); Potassium 3.2 mmol/L (3.5-5.1); Sodium 137 mmol/L (136-145)
[2022-10-03] MEDS ORDERED: Potassium Chloride 20 MEQ TAB PO SCH (09:00)
[2022-10-03] MEDS: Multivitamin W/ Minerals 1 TAB PO SCH (12:26)
[2022-10-03] MEDS: Metoprolol Tartrate 25 MG TAB PO SCH ×3 (12:27→21:39)
[2022-10-03] MEDS: Ziprasidone 20 MG CAP PO SCH ×2 (12:27→21:40)
[2022-10-03] MEDS: Calcium Carbonate 600 MG + Vit D TAB PO SCH ×2 (12:27→16:27)
[2022-10-03] MEDS: Benztropine 1 MG TAB PO SCH (12:27)
[2022-10-03] MEDS: Thiamine 100 MG TAB PO SCH (12:28)
[2022-10-03] MEDS: Folic Acid 1 MG TAB PO SCH (12:28)
[2022-10-03] MEDS: Ascorbic Acid 500 mg Chewable Tablet PO SCH (12:36)
[2022-10-03] MEDS: Ferrous Sulfate 325 MG TAB PO SCH (12:47)
[2022-10-03] MEDS ORDERED: Potassium Chloride 20 MEQ in Premix Bag 1 BAG IVPB SCH (14:00)
[2022-10-03] MEDS: Potassium Chloride 20 MEQ in Premix Bag 1 BAG IVPB SCH ×2 (14:22→16:24)
[2022-10-04] MEDS: Vancomycin 1 GM in Premix Bag 1 BAG IVPB SCH ×3 (00:25→23:55)
[2022-10-04] MEDS: Cefepime 2 GM in Sodium Chloride 0.9% 100 ML IVPB SCH ×2 (05:07→17:51)
[2022-10-04] MEDS: Benztropine 1 MG TAB PO SCH (08:37)
[2022-10-04] MEDS: Ferrous Sulfate 325 MG TAB PO SCH (08:37)
[2022-10-04] MEDS: Calcium Carbonate 600 MG + Vit D TAB PO SCH ×2 (08:37→17:33)
[2022-10-04] MEDS: Ascorbic Acid 500 mg Chewable Tablet PO SCH (08:37)
[2022-10-04] MEDS: Folic Acid 1 MG TAB PO SCH (08:37)
[2022-10-04] MEDS: Metoprolol Tartrate 25 MG TAB PO SCH ×2 (08:37→22:13)
[2022-10-04] MEDS: Thiamine 100 MG TAB PO SCH (08:38)
[2022-10-04] MEDS: Multivitamin W/ Minerals 1 TAB PO SCH (08:38)
[2022-10-04] MEDS: Ziprasidone 20 MG CAP PO SCH ×2 (08:38→22:13)
[2022-10-05] MEDS: Cefepime 2 GM in Sodium Chloride 0.9% 100 ML IVPB SCH ×2 (05:43→17:00)
[2022-10-05] MEDS: Benztropine 1 MG TAB PO SCH (10:33)
[2022-10-05] MEDS: Calcium Carbonate 600 MG + Vit D TAB PO SCH ×2 (10:33→16:35)
[2022-10-05] MEDS: Ferrous Sulfate 325 MG TAB PO SCH (10:33)
[2022-10-05] MEDS: Ascorbic Acid 500 mg Chewable Tablet PO SCH (10:33)
[2022-10-05] MEDS: Folic Acid 1 MG TAB PO SCH (10:33)
[2022-10-05] MEDS: Ziprasidone 20 MG CAP PO SCH ×2 (10:34→19:55)
[2022-10-05] MEDS: Metoprolol Tartrate 25 MG TAB PO SCH ×2 (10:34→19:55)
[2022-10-05] MEDS: Multivitamin W/ Minerals 1 TAB PO SCH (10:34)
[2022-10-05] MEDS: Thiamine 100 MG TAB PO SCH (10:34)
[2022-10-05] MEDS: Vancomycin 1 GM in Premix Bag 1 BAG IVPB SCH ×2 (11:02→23:10)
[2022-10-06] MEDS: Cefepime 2 GM in Sodium Chloride 0.9% 100 ML IVPB SCH ×2 (05:04→17:45)
[2022-10-06] MEDS: Ascorbic Acid 500 mg Chewable Tablet PO SCH (10:00)
[2022-10-06] MEDS: Calcium Carbonate 600 MG + Vit D TAB PO SCH ×2 (10:00→17:31)
[2022-10-06] MEDS: Benztropine 1 MG TAB PO SCH (10:00)
[2022-10-06] MEDS: Ferrous Sulfate 325 MG TAB PO SCH (10:00)
[2022-10-06] MEDS: Ziprasidone 20 MG CAP PO SCH ×2 (10:01→20:49)
[2022-10-06] MEDS: Metoprolol Tartrate 25 MG TAB PO SCH ×2 (10:01→20:49)
[2022-10-06] MEDS: Thiamine 100 MG TAB PO SCH (10:01)
[2022-10-06] MEDS: Multivitamin W/ Minerals 1 TAB PO SCH (10:01)
[2022-10-06] MEDS: Folic Acid 1 MG TAB PO SCH (10:01)
[2022-10-06] MEDS: Vancomycin 1 GM in Premix Bag 1 BAG IVPB SCH (11:40)
[2022-10-07] MEDS: Vancomycin 1 GM in Premix Bag 1 BAG IVPB SCH ×3 (00:15→23:40)
[2022-10-07] MEDS: Cefepime 2 GM in Sodium Chloride 0.9% 100 ML IVPB SCH ×2 (05:11→16:51)
[2022-10-07] MEDS: Calcium Carbonate 600 MG + Vit D TAB PO SCH ×2 (09:22→16:51)
[2022-10-07] MEDS: Folic Acid 1 MG TAB PO SCH (09:22)
[2022-10-07] MEDS: Ferrous Sulfate 325 MG TAB PO SCH (09:22)
[2022-10-07] MEDS: Metoprolol Tartrate 25 MG TAB PO SCH ×2 (09:22→23:40)
[2022-10-07] MEDS: Benztropine 1 MG TAB PO SCH (09:22)
[2022-10-07] MEDS: Ascorbic Acid 500 mg Chewable Tablet PO SCH (09:22)
[2022-10-07] MEDS: Thiamine 100 MG TAB PO SCH (09:23)
[2022-10-07] MEDS: Ziprasidone 20 MG CAP PO SCH ×2 (09:23→23:41)
[2022-10-07] MEDS: Multivitamin W/ Minerals 1 TAB PO SCH (09:23)
[2022-10-07 11:54] LABS: Vancomycin, Trough 13.7 ug/mL
[2022-10-08] MEDS: Cefepime 2 GM in Sodium Chloride 0.9% 100 ML IVPB SCH ×2 (06:00→17:38)
[2022-10-08] MEDS: Multivitamin W/ Minerals 1 TAB PO SCH (09:00)
[2022-10-08] MEDS: Calcium Carbonate 600 MG + Vit D TAB PO SCH ×2 (09:00→17:41)
[2022-10-08] MEDS: Benztropine 1 MG TAB PO SCH (09:00)
[2022-10-08] MEDS: Metoprolol Tartrate 25 MG TAB PO SCH ×2 (09:00→20:01)
[2022-10-08] MEDS: Thiamine 100 MG TAB PO SCH (09:00)
[2022-10-08] MEDS: Ferrous Sulfate 325 MG TAB PO SCH (09:00)
[2022-10-08] MEDS: Ziprasidone 20 MG CAP PO SCH ×2 (09:00→20:01)
[2022-10-08] MEDS: Ascorbic Acid 500 mg Chewable Tablet PO SCH (09:00)
[2022-10-08] MEDS: Folic Acid 1 MG TAB PO SCH (09:00)
[2022-10-08] MEDS: Vancomycin 1 GM in Premix Bag 1 BAG IVPB SCH ×2 (12:24→23:07)
[2022-10-09] MEDS: Cefepime 2 GM in Sodium Chloride 0.9% 100 ML IVPB SCH ×2 (05:57→18:07)
[2022-10-09] MEDS: Calcium Carbonate 600 MG + Vit D TAB PO SCH ×2 (09:46→16:20)
[2022-10-09] MEDS: Ascorbic Acid 500 mg Chewable Tablet PO SCH (09:46)
[2022-10-09] MEDS: Benztropine 1 MG TAB PO SCH (09:46)
[2022-10-09] MEDS: Ferrous Sulfate 325 MG TAB PO SCH (09:46)
[2022-10-09] MEDS: Ziprasidone 20 MG CAP PO SCH ×2 (09:47→21:48)
[2022-10-09] MEDS: Metoprolol Tartrate 25 MG TAB PO SCH ×2 (09:47→21:48)
[2022-10-09] MEDS: Thiamine 100 MG TAB PO SCH (09:47)
[2022-10-09] MEDS: Folic Acid 1 MG TAB PO SCH (09:47)
[2022-10-09] MEDS: Multivitamin W/ Minerals 1 TAB PO SCH (09:47)
[2022-10-09] MEDS: Vancomycin 1 GM in Premix Bag 1 BAG IVPB SCH ×2 (12:31→23:53)
[2022-10-10] MEDS: Cefepime 2 GM in Sodium Chloride 0.9% 100 ML IVPB SCH ×2 (06:39→17:20)
[2022-10-10] MEDS: Multivitamin W/ Minerals 1 TAB PO SCH (11:17)
[2022-10-10] MEDS: Metoprolol Tartrate 25 MG TAB PO SCH ×2 (11:17→21:45)
[2022-10-10] MEDS: Ascorbic Acid 500 mg Chewable Tablet PO SCH (11:17)
[2022-10-10] MEDS: Ferrous Sulfate 325 MG TAB PO SCH (11:17)
[2022-10-10] MEDS: Benztropine 1 MG TAB PO SCH (11:17)
[2022-10-10] MEDS: Calcium Carbonate 600 MG + Vit D TAB PO SCH ×2 (11:17→17:19)
[2022-10-10] MEDS: Folic Acid 1 MG TAB PO SCH (11:17)
[2022-10-10] MEDS: Ziprasidone 20 MG CAP PO SCH ×2 (11:18→21:45)
[2022-10-10] MEDS: Thiamine 100 MG TAB PO SCH (11:18)
[2022-10-10] MEDS: Vancomycin 1 GM in Premix Bag 1 BAG IVPB SCH (12:53)
[2022-10-11] MEDS: Vancomycin 1 GM in Premix Bag 1 BAG IVPB SCH ×2 (00:54→13:08)
[2022-10-11] MEDS: Cefepime 2 GM in Sodium Chloride 0.9% 100 ML IVPB SCH ×2 (05:20→18:23)
[2022-10-11] MEDS: Benztropine 1 MG TAB PO SCH (11:43)
[2022-10-11] MEDS: Ferrous Sulfate 325 MG TAB PO SCH (11:43)
[2022-10-11] MEDS: Calcium Carbonate 600 MG + Vit D TAB PO SCH ×2 (11:43→18:03)
[2022-10-11] MEDS: Ascorbic Acid 500 mg Chewable Tablet PO SCH (11:43)
[2022-10-11] MEDS: Metoprolol Tartrate 25 MG TAB PO SCH ×2 (11:44→20:24)
[2022-10-11] MEDS: Folic Acid 1 MG TAB PO SCH (11:44)
[2022-10-11] MEDS: Multivitamin W/ Minerals 1 TAB PO SCH (11:44)
[2022-10-11] MEDS: Thiamine 100 MG TAB PO SCH (11:45)
[2022-10-11] MEDS: Ziprasidone 20 MG CAP PO SCH ×2 (11:45→20:24)
[2022-10-12] MEDS: Vancomycin 1 GM in Premix Bag 1 BAG IVPB SCH ×3 (01:05→23:10)
[2022-10-12] MEDS: Cefepime 2 GM in Sodium Chloride 0.9% 100 ML IVPB SCH ×2 (05:27→17:56)
[2022-10-12] MEDS: Calcium Carbonate 600 MG + Vit D TAB PO SCH ×2 (09:09→17:13)
[2022-10-12] MEDS: Ferrous Sulfate 325 MG TAB PO SCH (09:10)
[2022-10-12] MEDS: Multivitamin W/ Minerals 1 TAB PO SCH (09:10)
[2022-10-12] MEDS: Metoprolol Tartrate 25 MG TAB PO SCH ×3 (09:10→20:20)
[2022-10-12] MEDS: Ziprasidone 20 MG CAP PO SCH ×2 (09:10→20:03)
[2022-10-12] MEDS: Thiamine 100 MG TAB PO SCH (09:10)
[2022-10-12] MEDS: Benztropine 1 MG TAB PO SCH (09:10)
[2022-10-12] MEDS: Folic Acid 1 MG TAB PO SCH (09:10)
[2022-10-12] MEDS: Ascorbic Acid 500 mg Chewable Tablet PO SCH (09:10)
[2022-10-12 11:17] LABS: Anion Gap 12 mmol/L (10-20); BUN (Urea Nitrogen) 7 mg/dL (8.9-20.6); Calc. Creatinine Clearance 173 mL/min (70-130); Calcium 8.8 mg/dL (7.8-10.44); Carbon Dioxide 25 mmol/L (22-29); Chloride 100 mmol/L (98-107); Estimated GFR 123; Glucose 101 mg/dL (70-105); Potassium 3.5 mmol/L (3.5-5.1); Sodium 133 mmol/L (136-145)
[2022-10-12 11:45] LABS: Hemoglobin 7.2 g/dL (14.0-18.0); Mean Corpuscular HGB CONC 32.4 g/dL (32.0-36.0); Mean Corpuscular Volume 86.5 fl (78.0-98.0); Mean Platelet Volume 6.2 fL (7.4-10.4); Platelet Count 412 10x3/uL (130-400); RBC Distribution Width 14.3 % (11.5-14.5); Red Blood Cell (RBC) Count 2.56 mill/uL (4.70-6.10); White Blood Cell (WBC) Count 4.4 10x3/uL (4.8-10.8)
[2022-10-13] MEDS: Cefepime 2 GM in Sodium Chloride 0.9% 100 ML IVPB SCH ×2 (05:34→19:00)
[2022-10-13] MEDS: Vancomycin 1 GM in Premix Bag 1 BAG IVPB SCH (13:58)
[2022-10-13] MEDS: Calcium Carbonate 600 MG + Vit D TAB PO SCH (19:34)
[2022-10-13] MEDS: Ferrous Sulfate 325 MG TAB PO SCH (19:34)
[2022-10-13] MEDS: Multivitamin W/ Minerals 1 TAB PO SCH (19:35)
[2022-10-13] MEDS: Folic Acid 1 MG TAB PO SCH (19:35)
[2022-10-13] MEDS: Ascorbic Acid 500 mg Chewable Tablet PO SCH (19:35)
[2022-10-13] MEDS: Metoprolol Tartrate 25 MG TAB PO SCH ×2 (19:35→20:36)
[2022-10-13] MEDS: Benztropine 1 MG TAB PO SCH (19:35)
[2022-10-13] MEDS: Thiamine 100 MG TAB PO SCH (19:36)
[2022-10-13] MEDS: Ziprasidone 20 MG CAP PO SCH ×2 (19:36→20:36)
[2022-10-14] MEDS: Vancomycin 1 GM in Premix Bag 1 BAG IVPB SCH ×2 (00:03→13:07)
[2022-10-14 05:04] LABS: Vancomycin, Trough 38.9 ug/mL
[2022-10-14] MEDS: Cefepime 2 GM in Sodium Chloride 0.9% 100 ML IVPB SCH ×2 (06:17→18:39)
[2022-10-14] MEDS: Ascorbic Acid 500 mg Chewable Tablet PO SCH (09:11)
[2022-10-14] MEDS: Ferrous Sulfate 325 MG TAB PO SCH (09:11)
[2022-10-14] MEDS: Benztropine 1 MG TAB PO SCH (09:11)
[2022-10-14] MEDS: Calcium Carbonate 600 MG + Vit D TAB PO SCH ×2 (09:11→18:32)
[2022-10-14] MEDS: Multivitamin W/ Minerals 1 TAB PO SCH (09:12)
[2022-10-14] MEDS: Folic Acid 1 MG TAB PO SCH (09:12)
[2022-10-14] MEDS: Metoprolol Tartrate 25 MG TAB PO SCH ×2 (09:12→21:09)
[2022-10-14] MEDS: Thiamine 100 MG TAB PO SCH (09:14)
[2022-10-14] MEDS: Ziprasidone 20 MG CAP PO SCH ×2 (09:14→21:10)
[2022-10-14 19:46] LABS: Anion Gap 11 mmol/L (10-20); BUN (Urea Nitrogen) 11 mg/dL (8.9-20.6); Calc. Creatinine Clearance 139 mL/min (70-130); Calcium 8.4 mg/dL (7.8-10.44); Carbon Dioxide 26 mmol/L (22-29); Chloride 100 mmol/L (98-107); Estimated GFR 115; Glucose 115 mg/dL (70-105); Potassium 3.6 mmol/L (3.5-5.1); Sodium 133 mmol/L (136-145)
[2022-10-14 19:59] LABS: Band 4 % (5-11); Eosinophils 8 % (0-10); Hemoglobin 7.7 g/dL (14.0-18.0); Lymphocytes 38 % (21-51); MDiff Complete? YES; Mean Corpuscular HGB CONC 32.1 g/dL (32.0-36.0); Mean Corpuscular Hemoglobin 27.5 pg (27.0-31.0); Mean Corpuscular Volume 85.8 fl (78.0-98.0); Mean Platelet Volume 6.5 fL (7.4-10.4); Monocytes 14 % (0-10); Neutrophil 34 % (42-75); Platelet Adequacy Comment Appears Increased; Platelet Count 579 10x3/uL (130-400); Polychromasia SLIGHT = 2-3 cells (100X) (0-2/hpf); Reactive Lymphocytes 2 % (0-10); Red Blood Cell (RBC) Count 2.79 mill/uL (4.70-6.10)
[2022-10-14] MEDS ORDERED: VANCOMYCIN 750 MG/250 ML BAG 750 MG in Sodium Chloride 0.9% 250 ML 250 ML IVPB SCH (23:59)
[2022-10-15] MEDS: Cefepime 2 GM in Sodium Chloride 0.9% 100 ML IVPB SCH ×2 (05:33→17:56)
[2022-10-15] MEDS: Sodium Chloride 0.9% 1,000 ML IV SCH ×2 (09:48→18:00)
[2022-10-15] MEDS: Folic Acid 1 MG TAB PO SCH (11:15)
[2022-10-15] MEDS: Calcium Carbonate 600 MG + Vit D TAB PO SCH ×2 (11:15→17:47)
[2022-10-15] MEDS: Metoprolol Tartrate 25 MG TAB PO SCH ×2 (11:15→20:44)
[2022-10-15] MEDS: Ferrous Sulfate 325 MG TAB PO SCH (11:15)
[2022-10-15] MEDS: Ascorbic Acid 500 mg Chewable Tablet PO SCH (11:15)
[2022-10-15] MEDS: Benztropine 1 MG TAB PO SCH (11:15)
[2022-10-15] MEDS: Ziprasidone 20 MG CAP PO SCH ×2 (11:16→20:45)
[2022-10-15] MEDS: Thiamine 100 MG TAB PO SCH (11:16)
[2022-10-15] MEDS: Multivitamin W/ Minerals 1 TAB PO SCH (11:16)
[2022-10-15] MEDS: Vancomycin HCl 750 MG in Sodium Chloride 0.9% 250 ML 250 ML IVPB SCH ×2 (13:47→23:46)
[2022-10-16] MEDS: Sodium Chloride 0.9% 1,000 ML IV SCH ×2 (03:54→15:18)
[2022-10-16] MEDS: Cefepime 2 GM in Sodium Chloride 0.9% 100 ML IVPB SCH ×2 (05:27→18:02)
[2022-10-16] MEDS: Benztropine 1 MG TAB PO SCH (09:45)
[2022-10-16] MEDS: Ferrous Sulfate 325 MG TAB PO SCH (09:45)
[2022-10-16] MEDS: Ascorbic Acid 500 mg Chewable Tablet PO SCH (09:45)
[2022-10-16] MEDS: Calcium Carbonate 600 MG + Vit D TAB PO SCH ×2 (09:45→18:13)
[2022-10-16] MEDS: Multivitamin W/ Minerals 1 TAB PO SCH (09:46)
[2022-10-16] MEDS: Metoprolol Tartrate 25 MG TAB PO SCH ×2 (09:46→21:00)
[2022-10-16] MEDS: Folic Acid 1 MG TAB PO SCH (09:46)
[2022-10-16] MEDS: Thiamine 100 MG TAB PO SCH (09:46)
[2022-10-16] MEDS: Ziprasidone 20 MG CAP PO SCH ×2 (09:46→21:00)
[2022-10-16 11:17] LABS: Mean Corpuscular HGB CONC 32.2 g/dL (32.0-36.0); Mean Corpuscular Hemoglobin 27.8 pg (27.0-31.0); Mean Corpuscular Volume 86.2 fl (78.0-98.0); Mean Platelet Volume 6.3 fL (7.4-10.4); Platelet Count 637 10x3/uL (130-400); RBC Distribution Width 14.2 % (11.5-14.5); White Blood Cell (WBC) Count 4.5 10x3/uL (4.8-10.8)
[2022-10-16 11:46] LABS: Vancomycin, Trough 14.4 ug/mL
[2022-10-16 12:22] LABS: Anion Gap 12 mmol/L (10-20); BUN (Urea Nitrogen) 6 mg/dL (8.9-20.6); Calc. Creatinine Clearance 162 mL/min (70-130); Calcium 8.4 mg/dL (7.8-10.44); Carbon Dioxide 24 mmol/L (22-29); Chloride 103 mmol/L (98-107); Estimated GFR 120; Glucose 100 mg/dL (70-105); Potassium 3.6 mmol/L (3.5-5.1); Sodium 135 mmol/L (136-145)
[2022-10-16] MEDS: Vancomycin HCl 750 MG in Sodium Chloride 0.9% 250 ML 250 ML IVPB SCH (12:50)
[2022-10-17] MEDS: Vancomycin HCl 750 MG in Sodium Chloride 0.9% 250 ML 250 ML IVPB SCH ×3 (01:10→23:44)
[2022-10-17] MEDS: Cefepime 2 GM in Sodium Chloride 0.9% 100 ML IVPB SCH ×2 (06:05→17:22)
[2022-10-17] MEDS: Calcium Carbonate 600 MG + Vit D TAB PO SCH ×2 (09:28→17:56)
[2022-10-17] MEDS: Ferrous Sulfate 325 MG TAB PO SCH (09:29)
[2022-10-17] MEDS: Benztropine 1 MG TAB PO SCH (09:29)
[2022-10-17] MEDS: Ascorbic Acid 500 mg Chewable Tablet PO SCH (09:29)
[2022-10-17] MEDS: Metoprolol Tartrate 25 MG TAB PO SCH ×2 (09:30→23:04)
[2022-10-17] MEDS: Multivitamin W/ Minerals 1 TAB PO SCH (09:30)
[2022-10-17] MEDS: Folic Acid 1 MG TAB PO SCH (09:30)
[2022-10-17] MEDS: Ziprasidone 20 MG CAP PO SCH ×2 (09:30→23:05)
[2022-10-17] MEDS: Thiamine 100 MG TAB PO SCH (09:30)
[2022-10-18] LABS: Vancomycin, Trough 8.6 ug/mL
[2022-10-18] MEDS ORDERED: Vancomycin HCl 500 MG in Sodium Chloride 0.9% 100 ML IVPB SCH (00:45)
[2022-10-18] MEDS: Cefepime 2 GM in Sodium Chloride 0.9% 100 ML IVPB SCH ×2 (05:33→17:00)
[2022-10-18 06:54] LABS: Anion Gap 8 mmol/L (10-20); BUN (Urea Nitrogen) 4 mg/dL (8.9-20.6); Calc. Creatinine Clearance 179 mL/min (70-130); Calcium 8.3 mg/dL (7.8-10.44); Carbon Dioxide 26 mmol/L (22-29); Chloride 105 mmol/L (98-107); Estimated GFR 124; Glucose 90 mg/dL (70-105); Potassium 3.4 mmol/L (3.5-5.1); Sodium 136 mmol/L (136-145)
[2022-10-18 07:04] LABS: Band 1 % (5-11); Eosinophils 10 % (0-10); Hemoglobin 7.3 g/dL (14.0-18.0); Hypochromia SLIGHT = 6-15 cells (100X) (0-5/hpf); Lymphocytes 26 % (21-51); MDiff Complete? YES; Mean Corpuscular HGB CONC 32.4 g/dL (32.0-36.0); Mean Corpuscular Volume 86.5 fl (78.0-98.0); Mean Platelet Volume 6.4 fL (7.4-10.4); Monocytes 10 % (0-10); Neutrophil 52 % (42-75); Platelet Adequacy Comment Appears Increased; Platelet Count 612 10x3/uL (130-400); Polychromasia SLIGHT = 2-3 cells (100X) (0-2/hpf); RBC Distribution Width 14.2 % (11.5-14.5); Reactive Lymphocytes 1 % (0-10); Red Blood Cell (RBC) Count 2.59 mill/uL (4.70-6.10); Schistocytes SLIGHT = 2-5 cells (100X) (0-1/hpf); White Blood Cell (WBC) Count 5.6 10x3/uL (4.8-10.8)
[2022-10-18] MEDS ORDERED: Electrolyte Replacement Protocol 1 EACH FS SCH (07:15)
[2022-10-18] MEDS ORDERED: Potassium Chloride 20 MEQ TAB PO SCH (08:00)
[2022-10-18] MEDS: Benztropine 1 MG TAB PO SCH (08:01)
[2022-10-18] MEDS: Folic Acid 1 MG TAB PO SCH (08:01)
[2022-10-18] MEDS: Ascorbic Acid 500 mg Chewable Tablet PO SCH (08:01)
[2022-10-18] MEDS: Calcium Carbonate 600 MG + Vit D TAB PO SCH ×2 (08:01→16:35)
[2022-10-18] MEDS: Ferrous Sulfate 325 MG TAB PO SCH (08:01)
[2022-10-18] MEDS: Metoprolol Tartrate 25 MG TAB PO SCH ×2 (08:01→21:14)
[2022-10-18] MEDS: Multivitamin W/ Minerals 1 TAB PO SCH (08:02)
[2022-10-18] MEDS: Thiamine 100 MG TAB PO SCH (08:02)
[2022-10-18] MEDS: Ziprasidone 20 MG CAP PO SCH ×2 (08:02→21:14)
[2022-10-18] MEDS: Vancomycin 1 GM in Premix Bag 1 BAG IVPB SCH (11:30)
[2022-10-19] MEDS: Vancomycin 1 GM in Premix Bag 1 BAG IVPB SCH ×2 (00:51→12:10)
[2022-10-19] MEDS: Cefepime 2 GM in Sodium Chloride 0.9% 100 ML IVPB SCH ×2 (05:45→17:14)
[2022-10-19] MEDS: Ferrous Sulfate 325 MG TAB PO SCH (08:16)
[2022-10-19] MEDS: Calcium Carbonate 600 MG + Vit D TAB PO SCH ×2 (08:16→16:28)
[2022-10-19] MEDS: Benztropine 1 MG TAB PO SCH (08:16)
[2022-10-19] MEDS: Ascorbic Acid 500 mg Chewable Tablet PO SCH (08:16)
[2022-10-19] MEDS: Metoprolol Tartrate 25 MG TAB PO SCH ×2 (08:17→20:40)
[2022-10-19] MEDS: Multivitamin W/ Minerals 1 TAB PO SCH (08:17)
[2022-10-19] MEDS: Thiamine 100 MG TAB PO SCH (08:17)
[2022-10-19] MEDS: Folic Acid 1 MG TAB PO SCH (08:17)
[2022-10-19] MEDS: Ziprasidone 20 MG CAP PO SCH ×2 (08:17→20:39)
[2022-10-19 11:54] LABS: Vancomycin, Trough 18.2 ug/mL
[2022-10-20] MEDS: Vancomycin 1 GM in Premix Bag 1 BAG IVPB SCH ×2 (00:17→13:42)
[2022-10-20] MEDS: Cefepime 2 GM in Sodium Chloride 0.9% 100 ML IVPB SCH ×2 (05:18→18:40)
[2022-10-20 06:21] LABS: #Eosinphils 0.6 thou/uL (0.0-0.7); #Lymphocytes 2.2 thou/uL (1.20-3.40); #Neutrophils 2.9 thou/uL (1.40-6.50); %Basophils 0.7 % (0.0-1.0); %Eosinophils 8.6 % (0.0-10.0); %Lymphocytes 32.5 % (21.0-51.0); %Monocytes 14.8 % (0.0-10.0); %Neutrophils 43.5 % (42.0-75.0); Hemoglobin 7.7 g/dL (14.0-18.0); Mean Corpuscular HGB CONC 32.7 g/dL (32.0-36.0); Mean Corpuscular Hemoglobin 28.1 pg (27.0-31.0); Mean Corpuscular Volume 85.9 fl (78.0-98.0); Mean Platelet Volume 6.4 fL (7.4-10.4); Platelet Count 661 10x3/uL (130-400); RBC Distribution Width 14.1 % (11.5-14.5); Red Blood Cell (RBC) Count 2.74 mill/uL (4.70-6.10); White Blood Cell (WBC) Count 6.6 10x3/uL (4.8-10.8)
[2022-10-20 06:42] LABS: Anion Gap 11 mmol/L (10-20); BUN (Urea Nitrogen) 5 mg/dL (8.9-20.6); Calc. Creatinine Clearance 173 mL/min (70-130); Calcium 8.7 mg/dL (7.8-10.44); Carbon Dioxide 23 mmol/L (22-29); Chloride 103 mmol/L (98-107); Estimated GFR 123; Glucose 91 mg/dL (70-105); Potassium 3.4 mmol/L (3.5-5.1); Sodium 134 mmol/L (136-145)
[2022-10-20] MEDS ORDERED: Sodium Chloride 0.9% 1,000 ML IV SCH (08:00)
[2022-10-20] MEDS: Potassium Chloride 20 MEQ in Premix Bag 1 BAG IVPB SCH ×2 (08:12→10:12)
[2022-10-20] MEDS: Ferrous Sulfate 325 MG TAB PO SCH (08:39)
[2022-10-20] MEDS: Ascorbic Acid 500 mg Chewable Tablet PO SCH (08:39)
[2022-10-20] MEDS: Calcium Carbonate 600 MG + Vit D TAB PO SCH ×2 (08:39→18:40)
[2022-10-20] MEDS: Benztropine 1 MG TAB PO SCH (08:39)
[2022-10-20] MEDS: Metoprolol Tartrate 25 MG TAB PO SCH ×2 (08:40→19:40)
[2022-10-20] MEDS: Folic Acid 1 MG TAB PO SCH (08:40)
[2022-10-20] MEDS: Multivitamin W/ Minerals 1 TAB PO SCH (08:40)
[2022-10-20] MEDS: Thiamine 100 MG TAB PO SCH (08:40)
[2022-10-20] MEDS: Ziprasidone 20 MG CAP PO SCH ×2 (08:41→19:40)
[2022-10-20] MEDS ORDERED: Midazolam HCl 2 mg/2 ml Vial ONE (10:03)
[2022-10-20] MEDS ORDERED: Dexmedetomidine 200 MCG/2 ML VIAL ONE (10:10)
[2022-10-20] MEDS ORDERED: Fentanyl 250 MCG/5 ML VIAL ONE (10:10)
[2022-10-20] MEDS ORDERED: SUGAMMADEX SODIUM 200 MG/2 ML VIAL ONE (10:10)
[2022-10-20] MEDS ORDERED: Ketamine 50 MG/ML (10ML VIAL) ONE (10:10)
[2022-10-20] MEDS ORDERED: PROPOFOL 200 MG/20 ML VIAL ONE (10:20)
[2022-10-20] MEDS ORDERED: Lidocaine 1% PF 5 ML VIAL ONE (10:20)
[2022-10-20 10:46] LABS: Magnesium 1.7 mg/dL (1.6-2.6)
[2022-10-20] MEDS ORDERED: Magnesium 2 GM/50 ML(in water) 2 GM in Premix Bag 1 BAG IVPB SCH (11:45)
[2022-10-20] MEDS ORDERED: Fentanyl 100 MCG/2 ML VIAL ONE (12:13)
[2022-10-20] MEDS ORDERED: Morphine 4 MG/ML VIAL SLOW IVP PRN (12:13)
[2022-10-20] MEDS ORDERED: HYDROcodone/Acetaminophen 5/325 mg Tablet PO PRN (12:13)
[2022-10-20] MEDS ORDERED: Ondansetron HCl/PF 4 MG/2 ML Vial IVP PRN (12:22)
[2022-10-20] MEDS ORDERED: Promethazine HCl 25 MG/ML VIAL IM PRN (12:22)
[2022-10-20] MEDS ORDERED: HYDROmorphone 2 MG/ML VIAL SLOW IVP PRN (12:22)
[2022-10-20] MEDS ORDERED: Promethazine HCl 25 MG/ML VIAL ONE (12:29)
[2022-10-20] MEDS: Gabapentin 300 MG CAP PO SCH ×2 (16:27→19:40)
[2022-10-21] MEDS: Vancomycin 1 GM in Premix Bag 1 BAG IVPB SCH ×3 (00:02→23:47)
[2022-10-21] MEDS: Cefepime 2 GM in Sodium Chloride 0.9% 100 ML IVPB SCH ×2 (05:59→17:21)
[2022-10-21 08:05] LABS: #Basophils 0.1 thou/uL (0.0-0.2); #Eosinphils 0.3 thou/uL (0.0-0.7); #Lymphocytes 1.4 thou/uL (1.20-3.40); #Monocytes 1.3 thou/uL (0.11-0.59); #Neutrophils 6.6 thou/uL (1.40-6.50); %Basophils 0.6 % (0.0-1.0); %Eosinophils 2.7 % (0.0-10.0); %Lymphocytes 14.6 % (21.0-51.0); %Monocytes 13.2 % (0.0-10.0); %Neutrophils 68.9 % (42.0-75.0); Hemoglobin 8.9 g/dL (14.0-18.0); Mean Corpuscular HGB CONC 31.9 g/dL (32.0-36.0); Mean Corpuscular Hemoglobin 27.8 pg (27.0-31.0); Mean Corpuscular Volume 87.1 fl (78.0-98.0); Mean Platelet Volume 6.4 fL (7.4-10.4); Platelet Count 589 10x3/uL (130-400); RBC Distribution Width 14.9 % (11.5-14.5); White Blood Cell (WBC) Count 9.6 10x3/uL (4.8-10.8)
[2022-10-21] MEDS: Ferrous Sulfate 325 MG TAB PO SCH (08:15)
[2022-10-21] MEDS: Calcium Carbonate 600 MG + Vit D TAB PO SCH ×2 (08:15→16:23)
[2022-10-21] MEDS: Ascorbic Acid 500 mg Chewable Tablet PO SCH (08:15)
[2022-10-21] MEDS: Benztropine 1 MG TAB PO SCH (08:15)
[2022-10-21] MEDS: Metoprolol Tartrate 25 MG TAB PO SCH ×2 (08:16→21:06)
[2022-10-21] MEDS: Multivitamin W/ Minerals 1 TAB PO SCH (08:16)
[2022-10-21] MEDS: Ziprasidone 20 MG CAP PO SCH ×2 (08:16→21:06)
[2022-10-21] MEDS: Thiamine 100 MG TAB PO SCH (08:16)
[2022-10-21] MEDS: Folic Acid 1 MG TAB PO SCH (08:16)
[2022-10-21] MEDS: Gabapentin 300 MG CAP PO SCH ×3 (08:16→21:06)
[2022-10-21 08:29] LABS: ALT (SGPT) 7 U/L (8-55); AST (SGOT) 10 U/L (5-34); Albumin 2.4 g/dL (3.5-5.0); Alkaline Phosphatase 62 U/L (40-110); Anion Gap 13 mmol/L (10-20); BUN (Urea Nitrogen) 6 mg/dL (8.9-20.6); Bilirubin, Total 0.9 mg/dL (0.2-1.2); Calc. Creatinine Clearance 155 mL/min (70-130); Calcium 8.3 mg/dL (7.8-10.44); Carbon Dioxide 26 mmol/L (22-29); Chloride 101 mmol/L (98-107); Estimated GFR 119; Globulin 3.5 g/dL (2.4-3.5); Glucose 99 mg/dL (70-105); Magnesium 2.1 mg/dL (1.6-2.6); Protein, Total 5.9 g/dL (6.0-8.3); Sodium 136 mmol/L (136-145)
[2022-10-21] MEDS ORDERED: Morphine 2 MG/ML VIAL SLOW IVP PRN (10:02)
[2022-10-22] MEDS: Cefepime 2 GM in Sodium Chloride 0.9% 100 ML IVPB SCH ×2 (06:05→17:50)
[2022-10-22 06:14] LABS: #Eosinphils 0.7 thou/uL (0.0-0.7); #Lymphocytes 1.8 thou/uL (1.20-3.40); #Monocytes 1.3 thou/uL (0.11-0.59); #Neutrophils 7.7 thou/uL (1.40-6.50); %Basophils 0.4 % (0.0-1.0); %Eosinophils 6.3 % (0.0-10.0); %Lymphocytes 15.6 % (21.0-51.0); %Neutrophils 66.7 % (42.0-75.0); Hemoglobin 8.6 g/dL (14.0-18.0); Mean Corpuscular HGB CONC 33.3 g/dL (32.0-36.0); Mean Corpuscular Hemoglobin 28.9 pg (27.0-31.0); Mean Corpuscular Volume 86.7 fl (78.0-98.0); Mean Platelet Volume 6.6 fL (7.4-10.4); Platelet Count 504 10x3/uL (130-400); RBC Distribution Width 14.7 % (11.5-14.5); Red Blood Cell (RBC) Count 2.96 mill/uL (4.70-6.10); White Blood Cell (WBC) Count 11.6 10x3/uL (4.8-10.8)
[2022-10-22 06:31] LABS: Anion Gap 12 mmol/L (10-20); BUN (Urea Nitrogen) 7 mg/dL (8.9-20.6); Calc. Creatinine Clearance 155 mL/min (70-130); Calcium 8.4 mg/dL (7.8-10.44); Carbon Dioxide 26 mmol/L (22-29); Chloride 102 mmol/L (98-107); Estimated GFR 119; Glucose 100 mg/dL (70-105); Potassium 3.7 mmol/L (3.5-5.1); Sodium 136 mmol/L (136-145)
[2022-10-22] MEDS: Benztropine 1 MG TAB PO SCH (09:06)
[2022-10-22] MEDS: Calcium Carbonate 600 MG + Vit D TAB PO SCH ×2 (09:06→17:50)
[2022-10-22] MEDS: Folic Acid 1 MG TAB PO SCH (09:06)
[2022-10-22] MEDS: Ascorbic Acid 500 mg Chewable Tablet PO SCH (09:06)
[2022-10-22] MEDS: Ferrous Sulfate 325 MG TAB PO SCH (09:06)
[2022-10-22] MEDS: Metoprolol Tartrate 25 MG TAB PO SCH ×2 (09:07→20:26)
[2022-10-22] MEDS: Ziprasidone 20 MG CAP PO SCH ×2 (09:07→20:26)
[2022-10-22] MEDS: Thiamine 100 MG TAB PO SCH (09:07)
[2022-10-22] MEDS: Multivitamin W/ Minerals 1 TAB PO SCH (09:07)
[2022-10-22] MEDS: Gabapentin 300 MG CAP PO SCH ×3 (09:07→20:26)
[2022-10-22] MEDS: Vancomycin 1 GM in Premix Bag 1 BAG IVPB SCH (13:07)
[2022-10-23] MEDS: Vancomycin 1 GM in Premix Bag 1 BAG IVPB SCH ×2 (00:09→13:00)
[2022-10-23] MEDS: Cefepime 2 GM in Sodium Chloride 0.9% 100 ML IVPB SCH ×2 (05:49→18:50)
[2022-10-23] MEDS: Ferrous Sulfate 325 MG TAB PO SCH (18:21)
[2022-10-23] MEDS: Benztropine 1 MG TAB PO SCH (18:21)
[2022-10-23] MEDS: Ascorbic Acid 500 mg Chewable Tablet PO SCH (18:21)
[2022-10-23] MEDS: Calcium Carbonate 600 MG + Vit D TAB PO SCH (18:21)
[2022-10-23] MEDS: Gabapentin 300 MG CAP PO SCH ×2 (18:22→19:42)
[2022-10-23] MEDS: Folic Acid 1 MG TAB PO SCH (18:22)
[2022-10-23] MEDS: Multivitamin W/ Minerals 1 TAB PO SCH (18:22)
[2022-10-23] MEDS: Metoprolol Tartrate 25 MG TAB PO SCH ×2 (18:22→19:43)
[2022-10-23] MEDS: Thiamine 100 MG TAB PO SCH (18:23)
[2022-10-23] MEDS: Ziprasidone 20 MG CAP PO SCH ×2 (18:23→19:43)
[2022-10-24] MEDS: Calcium Carbonate 600 MG + Vit D TAB PO SCH (15:27)
[2022-10-24] MEDS: Ferrous Sulfate 325 MG TAB PO SCH (15:27)
[2022-10-24] MEDS: Ascorbic Acid 500 mg Chewable Tablet PO SCH (15:27)
[2022-10-24] MEDS: Benztropine 1 MG TAB PO SCH (15:28)
[2022-10-24] MEDS: Gabapentin 300 MG CAP PO SCH ×3 (15:28→19:39)
[2022-10-24] MEDS: Folic Acid 1 MG TAB PO SCH (15:28)
[2022-10-24] MEDS: Multivitamin W/ Minerals 1 TAB PO SCH (15:29)
[2022-10-24] MEDS: Metoprolol Tartrate 25 MG TAB PO SCH ×2 (15:29→19:39)
[2022-10-24] MEDS: Thiamine 100 MG TAB PO SCH (15:29)
[2022-10-24] MEDS: Ziprasidone 20 MG CAP PO SCH ×2 (15:30→19:39)
[2022-10-25] MEDS: Calcium Carbonate 600 MG + Vit D TAB PO SCH ×2 (10:00→17:38)
[2022-10-25] MEDS: Folic Acid 1 MG TAB PO SCH (10:01)
[2022-10-25] MEDS: Ascorbic Acid 500 mg Chewable Tablet PO SCH (10:01)
[2022-10-25] MEDS: Ferrous Sulfate 325 MG TAB PO SCH (10:01)
[2022-10-25] MEDS: Benztropine 1 MG TAB PO SCH (10:01)
[2022-10-25] MEDS: Multivitamin W/ Minerals 1 TAB PO SCH (10:02)
[2022-10-25] MEDS: Metoprolol Tartrate 25 MG TAB PO SCH ×2 (10:02→21:37)
[2022-10-25] MEDS: Gabapentin 300 MG CAP PO SCH ×3 (10:02→21:37)
[2022-10-25] MEDS: Ziprasidone 20 MG CAP PO SCH ×2 (10:03→21:38)
[2022-10-25] MEDS: Thiamine 100 MG TAB PO SCH (10:03)
[2022-10-25] MEDS ORDERED: Docusate 100 MG CAP PO PRN (17:36)
[2022-10-25] MEDS ORDERED: Polyethylene Glycol 3350 17 GM Packet PO PRN (17:36)
[2022-10-26] MEDS: Ferrous Sulfate 325 MG TAB PO SCH (08:34)
[2022-10-26] MEDS: Calcium Carbonate 600 MG + Vit D TAB PO SCH ×2 (08:34→18:44)
[2022-10-26] MEDS: Benztropine 1 MG TAB PO SCH (10:49)
[2022-10-26] MEDS: Ascorbic Acid 500 mg Chewable Tablet PO SCH (10:49)
[2022-10-26] MEDS: Multivitamin W/ Minerals 1 TAB PO SCH (10:50)
[2022-10-26] MEDS: Gabapentin 300 MG CAP PO SCH ×3 (10:50→21:23)
[2022-10-26] MEDS: Thiamine 100 MG TAB PO SCH (10:50)
[2022-10-26] MEDS: Folic Acid 1 MG TAB PO SCH (10:50)
[2022-10-26] MEDS: Metoprolol Tartrate 25 MG TAB PO SCH ×2 (10:50→21:23)
[2022-10-26] MEDS: Ziprasidone 20 MG CAP PO SCH ×2 (10:51→21:23)
[2022-10-26] MEDS ORDERED: Polyethylene Glycol 3350 17 GM Packet PO SCH (11:30)
[2022-10-26] MEDS ORDERED: Docusate 100 MG CAP PO SCH (11:30)
[2022-10-27 07:10] LABS: Hemoglobin 8.8 g/dL (14.0-18.0); Mean Corpuscular HGB CONC 31.8 g/dL (32.0-36.0); Mean Corpuscular Hemoglobin 28.6 pg (27.0-31.0); Mean Corpuscular Volume 89.8 fl (78.0-98.0); Mean Platelet Volume 6.6 fL (7.4-10.4); Platelet Count 534 10x3/uL (130-400); RBC Distribution Width 15.4 % (11.5-14.5); Red Blood Cell (RBC) Count 3.08 mill/uL (4.70-6.10); White Blood Cell (WBC) Count 12.8 10x3/uL (4.8-10.8)
[2022-10-27 07:27] LABS: Anion Gap 14 mmol/L (10-20); BUN (Urea Nitrogen) 13 mg/dL (8.9-20.6); Calc. Creatinine Clearance 157 mL/min (70-130); Calcium 9.1 mg/dL (7.8-10.44); Carbon Dioxide 26 mmol/L (22-29); Chloride 100 mmol/L (98-107); Estimated GFR 119; Glucose 100 mg/dL (70-105); Potassium 4.2 mmol/L (3.5-5.1); Sodium 136 mmol/L (136-145)
[2022-10-27] MEDS ORDERED: Polyethylene Glycol 3350 17 GM Packet PO SCH (11:30)
[2022-10-27] MEDS ORDERED: Docusate 100 MG CAP PO SCH (11:30)
[2022-10-27] MEDS: Calcium Carbonate 600 MG + Vit D TAB PO SCH (18:12)
[2022-10-27] MEDS: Ferrous Sulfate 325 MG TAB PO SCH (18:12)
[2022-10-27] MEDS: Ascorbic Acid 500 mg Chewable Tablet PO SCH (18:13)
[2022-10-27] MEDS: Benztropine 1 MG TAB PO SCH (18:13)
[2022-10-27] MEDS: Folic Acid 1 MG TAB PO SCH (18:14)
[2022-10-27] MEDS: Gabapentin 300 MG CAP PO SCH ×3 (18:14→20:10)
[2022-10-27] MEDS: Ziprasidone 20 MG CAP PO SCH ×2 (18:15→20:11)
[2022-10-27] MEDS: Multivitamin W/ Minerals 1 TAB PO SCH (18:15)
[2022-10-27] MEDS: Metoprolol Tartrate 25 MG TAB PO SCH ×2 (18:15→20:10)
[2022-10-27] MEDS: Thiamine 100 MG TAB PO SCH (18:15)
[2022-10-28] MEDS: Folic Acid 1 MG TAB PO SCH (16:43)
[2022-10-28] MEDS: Benztropine 1 MG TAB PO SCH (16:43)
[2022-10-28] MEDS: Gabapentin 300 MG CAP PO SCH ×3 (16:43→20:02)
[2022-10-28] MEDS: Ascorbic Acid 500 mg Chewable Tablet PO SCH (16:43)
[2022-10-28] MEDS: Calcium Carbonate 600 MG + Vit D TAB PO SCH ×2 (16:43→17:28)
[2022-10-28] MEDS: Ferrous Sulfate 325 MG TAB PO SCH (16:43)
[2022-10-28] MEDS: Metoprolol Tartrate 25 MG TAB PO SCH ×2 (16:44→20:02)
[2022-10-28] MEDS: Ziprasidone 20 MG CAP PO SCH ×2 (16:44→20:02)
[2022-10-28] MEDS: Multivitamin W/ Minerals 1 TAB PO SCH (16:44)
[2022-10-28] MEDS: Thiamine 100 MG TAB PO SCH (16:44)
[2022-10-29] MEDS: Ascorbic Acid 500 mg Chewable Tablet PO SCH (12:16)
[2022-10-29] MEDS: Calcium Carbonate 600 MG + Vit D TAB PO SCH ×2 (12:16→12:19)
[2022-10-29] MEDS: Ferrous Sulfate 325 MG TAB PO SCH (12:16)
[2022-10-29] MEDS: Benztropine 1 MG TAB PO SCH (12:17)
[2022-10-29] MEDS: Folic Acid 1 MG TAB PO SCH (12:17)
[2022-10-29] MEDS: Metoprolol Tartrate 25 MG TAB PO SCH ×2 (12:17→20:18)
[2022-10-29] MEDS: Gabapentin 300 MG CAP PO SCH ×3 (12:17→20:19)
[2022-10-29] MEDS: Multivitamin W/ Minerals 1 TAB PO SCH (12:18)
[2022-10-29] MEDS: Thiamine 100 MG TAB PO SCH (12:18)
[2022-10-29] MEDS: Ziprasidone 20 MG CAP PO SCH ×2 (12:18→20:19)
[2022-10-30] MEDS: Benztropine 1 MG TAB PO SCH (09:10)
[2022-10-30] MEDS: Ferrous Sulfate 325 MG TAB PO SCH (09:10)
[2022-10-30] MEDS: Gabapentin 300 MG CAP PO SCH ×3 (09:10→23:50)
[2022-10-30] MEDS: Multivitamin W/ Minerals 1 TAB PO SCH (09:10)
[2022-10-30] MEDS: Metoprolol Tartrate 25 MG TAB PO SCH ×2 (09:10→23:50)
[2022-10-30] MEDS: Calcium Carbonate 600 MG + Vit D TAB PO SCH ×2 (09:10→17:20)
[2022-10-30] MEDS: Ascorbic Acid 500 mg Chewable Tablet PO SCH (09:10)
[2022-10-30] MEDS: Ziprasidone 20 MG CAP PO SCH ×2 (09:10→23:50)
[2022-10-30] MEDS: Folic Acid 1 MG TAB PO SCH (09:10)
[2022-10-30] MEDS: Thiamine 100 MG TAB PO SCH (09:10)
[2022-10-31] MEDS: Calcium Carbonate 600 MG + Vit D TAB PO SCH ×2 (09:36→17:28)
[2022-10-31] MEDS: Ferrous Sulfate 325 MG TAB PO SCH (09:36)
[2022-10-31] MEDS: Multivitamin W/ Minerals 1 TAB PO SCH (09:38)
[2022-10-31] MEDS: Folic Acid 1 MG TAB PO SCH (09:38)
[2022-10-31] MEDS: Ascorbic Acid 500 mg Chewable Tablet PO SCH (09:38)
[2022-10-31] MEDS: Benztropine 1 MG TAB PO SCH (09:38)
[2022-10-31] MEDS: Metoprolol Tartrate 25 MG TAB PO SCH ×2 (09:38→21:45)
[2022-10-31] MEDS: Gabapentin 300 MG CAP PO SCH ×3 (09:38→21:45)
[2022-10-31] MEDS: Ziprasidone 20 MG CAP PO SCH (09:39)
[2022-10-31] MEDS: Thiamine 100 MG TAB PO SCH (09:39)
[2022-11-01] MEDS: Ziprasidone 20 MG CAP PO SCH ×3 (02:26→22:25)
[2022-11-01] MEDS: Ferrous Sulfate 325 MG TAB PO SCH (08:58)
[2022-11-01] MEDS: Calcium Carbonate 600 MG + Vit D TAB PO SCH ×2 (08:58→16:32)
[2022-11-01] MEDS: Benztropine 1 MG TAB PO SCH (09:37)
[2022-11-01] MEDS: Gabapentin 300 MG CAP PO SCH ×3 (09:37→22:24)
[2022-11-01] MEDS: Ascorbic Acid 500 mg Chewable Tablet PO SCH (09:37)
[2022-11-01] MEDS: Folic Acid 1 MG TAB PO SCH (09:37)
[2022-11-01] MEDS: Multivitamin W/ Minerals 1 TAB PO SCH (09:38)
[2022-11-01] MEDS: Thiamine 100 MG TAB PO SCH (09:38)
[2022-11-01] MEDS: Metoprolol Tartrate 25 MG TAB PO SCH ×2 (09:38→22:24)
[2022-11-02] MEDS: Benztropine 1 MG TAB PO SCH (09:12)
[2022-11-02] MEDS: Ferrous Sulfate 325 MG TAB PO SCH (09:12)
[2022-11-02] MEDS: Ascorbic Acid 500 mg Chewable Tablet PO SCH (09:12)
[2022-11-02] MEDS: Calcium Carbonate 600 MG + Vit D TAB PO SCH ×2 (09:12→16:47)
[2022-11-02] MEDS: Multivitamin W/ Minerals 1 TAB PO SCH (09:13)
[2022-11-02] MEDS: Thiamine 100 MG TAB PO SCH (09:13)
[2022-11-02] MEDS: Ziprasidone 20 MG CAP PO SCH ×2 (09:13→22:36)
[2022-11-02] MEDS: Gabapentin 300 MG CAP PO SCH ×3 (09:13→22:36)
[2022-11-02] MEDS: Folic Acid 1 MG TAB PO SCH (09:13)
[2022-11-02] MEDS: Metoprolol Tartrate 25 MG TAB PO SCH ×2 (09:13→22:36)
[2022-11-03] MEDS: Ascorbic Acid 500 mg Chewable Tablet PO SCH (08:49)
[2022-11-03] MEDS: Gabapentin 300 MG CAP PO SCH ×3 (08:49→21:50)
[2022-11-03] MEDS: Ferrous Sulfate 325 MG TAB PO SCH (08:49)
[2022-11-03] MEDS: Folic Acid 1 MG TAB PO SCH (08:49)
[2022-11-03] MEDS: Calcium Carbonate 600 MG + Vit D TAB PO SCH ×2 (08:49→17:03)
[2022-11-03] MEDS: Metoprolol Tartrate 25 MG TAB PO SCH ×2 (08:49→21:50)
[2022-11-03] MEDS: Multivitamin W/ Minerals 1 TAB PO SCH (08:49)
[2022-11-03] MEDS: Benztropine 1 MG TAB PO SCH (08:49)
[2022-11-03] MEDS: Ziprasidone 20 MG CAP PO SCH ×2 (08:50→21:50)
[2022-11-03] MEDS: Thiamine 100 MG TAB PO SCH (08:50)
[2022-11-04] MEDS: Folic Acid 1 MG TAB PO SCH (09:32)
[2022-11-04] MEDS: Ascorbic Acid 500 mg Chewable Tablet PO SCH (09:32)
[2022-11-04] MEDS: Ferrous Sulfate 325 MG TAB PO SCH (09:32)
[2022-11-04] MEDS: Gabapentin 300 MG CAP PO SCH ×3 (09:32→20:37)
[2022-11-04] MEDS: Calcium Carbonate 600 MG + Vit D TAB PO SCH ×2 (09:32→19:27)
[2022-11-04] MEDS: Benztropine 1 MG TAB PO SCH (09:32)
[2022-11-04] MEDS: Ziprasidone 20 MG CAP PO SCH ×2 (09:33→20:37)
[2022-11-04] MEDS: Thiamine 100 MG TAB PO SCH (09:33)
[2022-11-04] MEDS: Metoprolol Tartrate 25 MG TAB PO SCH ×2 (09:33→20:37)
[2022-11-04] MEDS: Multivitamin W/ Minerals 1 TAB PO SCH (09:33)
[2022-11-04 10:12] LABS: #Basophils 0.1 thou/uL (0.0-0.2); #Eosinphils 0.7 thou/uL (0.0-0.7); #Lymphocytes 1.4 thou/uL (1.20-3.40); #Monocytes 0.6 thou/uL (0.11-0.59); #Neutrophils 4.2 thou/uL (1.40-6.50); %Basophils 1.1 % (0.0-1.0); %Eosinophils 9.9 % (0.0-10.0); %Lymphocytes 20.2 % (21.0-51.0); %Monocytes 8.3 % (0.0-10.0); %Neutrophils 60.4 % (42.0-75.0); Hemoglobin 9.5 g/dL (14.0-18.0); Mean Corpuscular HGB CONC 31.1 g/dL (32.0-36.0); Mean Corpuscular Hemoglobin 28.1 pg (27.0-31.0); Mean Corpuscular Volume 90.3 fl (78.0-98.0); Mean Platelet Volume 7.1 fL (7.4-10.4); Platelet Count 466 10x3/uL (130-400); RBC Distribution Width 16.5 % (11.5-14.5); Red Blood Cell (RBC) Count 3.38 mill/uL (4.70-6.10)
[2022-11-04 10:46] LABS: Anion Gap 12 mmol/L (10-20); BUN (Urea Nitrogen) 12 mg/dL (8.9-20.6); Calc. Creatinine Clearance 160 mL/min (70-130); Calcium 9.2 mg/dL (7.8-10.44); Carbon Dioxide 27 mmol/L (22-29); Chloride 101 mmol/L (98-107); Estimated GFR 120; Glucose 98 mg/dL (70-105); Potassium 3.8 mmol/L (3.5-5.1); Sodium 136 mmol/L (136-145)
[2022-11-05] MEDS: Calcium Carbonate 600 MG + Vit D TAB PO SCH ×2 (08:49→17:00)
[2022-11-05] MEDS: Benztropine 1 MG TAB PO SCH (08:50)
[2022-11-05] MEDS: Ascorbic Acid 500 mg Chewable Tablet PO SCH (08:50)
[2022-11-05] MEDS: Ferrous Sulfate 325 MG TAB PO SCH (08:50)
[2022-11-05] MEDS: Gabapentin 300 MG CAP PO SCH ×3 (08:51→20:48)
[2022-11-05] MEDS: Thiamine 100 MG TAB PO SCH (08:51)
[2022-11-05] MEDS: Folic Acid 1 MG TAB PO SCH (08:51)
[2022-11-05] MEDS: Metoprolol Tartrate 25 MG TAB PO SCH ×2 (08:51→20:48)
[2022-11-05] MEDS: Multivitamin W/ Minerals 1 TAB PO SCH (08:51)
[2022-11-05] MEDS: Ziprasidone 20 MG CAP PO SCH ×2 (08:51→20:49)
[2022-11-06] MEDS: Ferrous Sulfate 325 MG TAB PO SCH (09:17)
[2022-11-06] MEDS: Ascorbic Acid 500 mg Chewable Tablet PO SCH (09:17)
[2022-11-06] MEDS: Calcium Carbonate 600 MG + Vit D TAB PO SCH ×2 (09:17→17:43)
[2022-11-06] MEDS: Benztropine 1 MG TAB PO SCH (09:18)
[2022-11-06] MEDS: Folic Acid 1 MG TAB PO SCH (09:18)
[2022-11-06] MEDS: Gabapentin 300 MG CAP PO SCH ×3 (09:18→21:03)
[2022-11-06] MEDS: Thiamine 100 MG TAB PO SCH (09:18)
[2022-11-06] MEDS: Metoprolol Tartrate 25 MG TAB PO SCH ×2 (09:18→21:03)
[2022-11-06] MEDS: Ziprasidone 20 MG CAP PO SCH ×2 (09:18→21:03)
[2022-11-06] MEDS: Multivitamin W/ Minerals 1 TAB PO SCH (09:18)
[2022-11-07] MEDS: Ascorbic Acid 500 mg Chewable Tablet PO SCH (08:21)
[2022-11-07] MEDS: Metoprolol Tartrate 25 MG TAB PO SCH ×2 (08:21→21:16)
[2022-11-07] MEDS: Benztropine 1 MG TAB PO SCH (08:21)
[2022-11-07] MEDS: Gabapentin 300 MG CAP PO SCH ×3 (08:21→21:16)
[2022-11-07] MEDS: Folic Acid 1 MG TAB PO SCH (08:21)
[2022-11-07] MEDS: Calcium Carbonate 600 MG + Vit D TAB PO SCH ×2 (08:21→17:11)
[2022-11-07] MEDS: Multivitamin W/ Minerals 1 TAB PO SCH (08:21)
[2022-11-07] MEDS: Ferrous Sulfate 325 MG TAB PO SCH (08:21)
[2022-11-07] MEDS: Thiamine 100 MG TAB PO SCH (08:22)
[2022-11-07] MEDS: Ziprasidone 20 MG CAP PO SCH ×2 (08:22→21:16)
[2022-11-08] MEDS: Ascorbic Acid 500 mg Chewable Tablet PO SCH (08:32)
[2022-11-08] MEDS: Calcium Carbonate 600 MG + Vit D TAB PO SCH ×2 (08:32→16:44)
[2022-11-08] MEDS: Ferrous Sulfate 325 MG TAB PO SCH (08:32)
[2022-11-08] MEDS: Ziprasidone 20 MG CAP PO SCH ×2 (08:33→21:54)
[2022-11-08] MEDS: Thiamine 100 MG TAB PO SCH (08:33)
[2022-11-08] MEDS: Gabapentin 300 MG CAP PO SCH ×3 (08:33→21:54)
[2022-11-08] MEDS: Metoprolol Tartrate 25 MG TAB PO SCH ×2 (08:33→21:54)
[2022-11-08] MEDS: Benztropine 1 MG TAB PO SCH (08:33)
[2022-11-08] MEDS: Multivitamin W/ Minerals 1 TAB PO SCH (08:33)
[2022-11-08] MEDS: Folic Acid 1 MG TAB PO SCH (08:33)
[2022-11-09] MEDS: Calcium Carbonate 600 MG + Vit D TAB PO SCH ×2 (08:50→17:01)
[2022-11-09] MEDS: Folic Acid 1 MG TAB PO SCH (08:51)
[2022-11-09] MEDS: Ferrous Sulfate 325 MG TAB PO SCH (08:51)
[2022-11-09] MEDS: Gabapentin 300 MG CAP PO SCH ×3 (08:51→19:58)
[2022-11-09] MEDS: Thiamine 100 MG TAB PO SCH (08:51)
[2022-11-09] MEDS: Multivitamin W/ Minerals 1 TAB PO SCH (08:51)
[2022-11-09] MEDS: Ascorbic Acid 500 mg Chewable Tablet PO SCH (08:51)
[2022-11-09] MEDS: Benztropine 1 MG TAB PO SCH (08:51)
[2022-11-09] MEDS: Metoprolol Tartrate 25 MG TAB PO SCH ×2 (08:51→19:59)
[2022-11-09] MEDS: Ziprasidone 20 MG CAP PO SCH ×2 (08:52→20:00)
[2022-11-10] MEDS: Calcium Carbonate 600 MG + Vit D TAB PO SCH ×2 (08:28→16:11)
[2022-11-10] MEDS: Ferrous Sulfate 325 MG TAB PO SCH (08:28)
[2022-11-10] MEDS: Benztropine 1 MG TAB PO SCH (08:29)
[2022-11-10] MEDS: Folic Acid 1 MG TAB PO SCH (08:31)
[2022-11-10] MEDS: Ascorbic Acid 500 mg Chewable Tablet PO SCH (08:31)
[2022-11-10] MEDS: Gabapentin 300 MG CAP PO SCH ×3 (08:32→21:48)
[2022-11-10] MEDS: Ziprasidone 20 MG CAP PO SCH ×2 (08:33→21:48)
[2022-11-10] MEDS: Multivitamin W/ Minerals 1 TAB PO SCH (08:33)
[2022-11-10] MEDS: Thiamine 100 MG TAB PO SCH (08:33)
[2022-11-10] MEDS: Metoprolol Tartrate 25 MG TAB PO SCH ×2 (08:33→21:48)
[2022-11-11] MEDS: Benztropine 1 MG TAB PO SCH (09:27)
[2022-11-11] MEDS: Ferrous Sulfate 325 MG TAB PO SCH (09:27)
[2022-11-11] MEDS: Calcium Carbonate 600 MG + Vit D TAB PO SCH ×2 (09:27→17:51)
[2022-11-11] MEDS: Ascorbic Acid 500 mg Chewable Tablet PO SCH (09:27)
[2022-11-11] MEDS: Folic Acid 1 MG TAB PO SCH (09:28)
[2022-11-11] MEDS: Gabapentin 300 MG CAP PO SCH ×3 (09:29→20:48)
[2022-11-11] MEDS: Thiamine 100 MG TAB PO SCH (09:29)
[2022-11-11] MEDS: Metoprolol Tartrate 25 MG TAB PO SCH ×2 (09:29→20:48)
[2022-11-11] MEDS: Ziprasidone 20 MG CAP PO SCH ×2 (09:29→20:48)
[2022-11-11] MEDS: Multivitamin W/ Minerals 1 TAB PO SCH (09:29)
[2022-11-12] MEDS: Ferrous Sulfate 325 MG TAB PO SCH (08:35)
[2022-11-12] MEDS: Calcium Carbonate 600 MG + Vit D TAB PO SCH ×2 (08:35→16:02)
[2022-11-12] MEDS: Ascorbic Acid 500 mg Chewable Tablet PO SCH (08:35)
[2022-11-12] MEDS: Benztropine 1 MG TAB PO SCH (08:36)
[2022-11-12] MEDS: Metoprolol Tartrate 25 MG TAB PO SCH ×2 (08:36→22:53)
[2022-11-12] MEDS: Gabapentin 300 MG CAP PO SCH ×3 (08:36→21:30)
[2022-11-12] MEDS: Folic Acid 1 MG TAB PO SCH (08:36)
[2022-11-12] MEDS: Multivitamin W/ Minerals 1 TAB PO SCH (08:37)
[2022-11-12] MEDS: Thiamine 100 MG TAB PO SCH (08:37)
[2022-11-12] MEDS: Ziprasidone 20 MG CAP PO SCH ×2 (08:37→22:54)
[2022-11-13] MEDS: Benztropine 1 MG TAB PO SCH (09:54)
[2022-11-13] MEDS: Ferrous Sulfate 325 MG TAB PO SCH (10:29)
[2022-11-13] MEDS: Ascorbic Acid 500 mg Chewable Tablet PO SCH (10:29)
[2022-11-13] MEDS: Folic Acid 1 MG TAB PO SCH (10:29)
[2022-11-13] MEDS: Gabapentin 300 MG CAP PO SCH ×3 (10:29→20:43)
[2022-11-13] MEDS: Calcium Carbonate 600 MG + Vit D TAB PO SCH (10:29)
[2022-11-13] MEDS: Multivitamin W/ Minerals 1 TAB PO SCH (10:30)
[2022-11-13] MEDS: Thiamine 100 MG TAB PO SCH (10:30)
[2022-11-13] MEDS: Ziprasidone 20 MG CAP PO SCH ×2 (18:23→20:43)
[2022-11-13] MEDS: Metoprolol Tartrate 25 MG TAB PO SCH ×2 (18:23→20:43)
[2022-11-14] MEDS: Benztropine 1 MG TAB PO SCH (08:27)
[2022-11-14] MEDS: Gabapentin 300 MG CAP PO SCH ×3 (08:29→21:51)
[2022-11-14] MEDS: Metoprolol Tartrate 25 MG TAB PO SCH ×2 (08:30→21:51)
[2022-11-14] MEDS: Ziprasidone 20 MG CAP PO SCH ×2 (08:30→21:52)
[2022-11-15] MEDS: Benztropine 1 MG TAB PO SCH (16:56)
[2022-11-15] MEDS: Gabapentin 300 MG CAP PO SCH ×3 (16:57→22:04)
[2022-11-15] MEDS: Metoprolol Tartrate 25 MG TAB PO SCH ×2 (16:58→22:04)
[2022-11-15] MEDS: Ziprasidone 20 MG CAP PO SCH ×2 (16:58→22:04)
[2022-11-16] MEDS: Gabapentin 300 MG CAP PO SCH ×3 (15:01→19:59)
[2022-11-16] MEDS: Benztropine 1 MG TAB PO SCH (15:01)
[2022-11-16] MEDS: Ziprasidone 20 MG CAP PO SCH ×2 (15:02→19:59)
[2022-11-16] MEDS: Metoprolol Tartrate 25 MG TAB PO SCH ×2 (15:02→19:59)
[2022-11-17] MEDS: Gabapentin 300 MG CAP PO SCH ×3 (10:52→21:24)
[2022-11-17] MEDS: Ziprasidone 20 MG CAP PO SCH ×2 (10:52→21:24)
[2022-11-17] MEDS: Metoprolol Tartrate 25 MG TAB PO SCH ×2 (10:52→21:24)
[2022-11-17] MEDS: Benztropine 1 MG TAB PO SCH (10:52)
[2022-11-18] MEDS: Benztropine 1 MG TAB PO SCH (08:18)
[2022-11-18] MEDS: Ziprasidone 20 MG CAP PO SCH ×2 (08:19→20:46)
[2022-11-18] MEDS: Metoprolol Tartrate 25 MG TAB PO SCH ×2 (08:19→20:46)
[2022-11-18] MEDS: Gabapentin 300 MG CAP PO SCH ×3 (08:19→20:46)
[2022-11-19] MEDS: Benztropine 1 MG TAB PO SCH (08:59)
[2022-11-19] MEDS: Gabapentin 300 MG CAP PO SCH ×3 (08:59→21:13)
[2022-11-19] MEDS: Ziprasidone 20 MG CAP PO SCH ×2 (09:00→21:13)
[2022-11-19] MEDS: Metoprolol Tartrate 25 MG TAB PO SCH ×2 (09:00→21:13)
[2022-11-20 08:25] LABS: Hemoglobin 10.9 g/dL (14.0-18.0); Platelet Count 290 10x3/uL (130-400)
[2022-11-20] MEDS: Metoprolol Tartrate 25 MG TAB PO SCH ×2 (13:21→21:55)
[2022-11-20] MEDS: Benztropine 1 MG TAB PO SCH (13:25)
[2022-11-20] MEDS: Gabapentin 300 MG CAP PO SCH ×3 (13:25→21:55)
[2022-11-20] MEDS: Ziprasidone 20 MG CAP PO SCH ×2 (13:25→21:55)
[2022-11-21] MEDS: Metoprolol Tartrate 25 MG TAB PO SCH ×2 (10:19→21:34)
[2022-11-21] MEDS: Benztropine 1 MG TAB PO SCH (10:23)
[2022-11-21] MEDS: Ziprasidone 20 MG CAP PO SCH ×2 (10:26→21:51)
[2022-11-21] MEDS: Gabapentin 300 MG CAP PO SCH (10:26)
[2022-11-22] MEDS: Benztropine 1 MG TAB PO SCH (09:36)
[2022-11-22] MEDS: Ziprasidone 20 MG CAP PO SCH ×2 (09:36→21:07)
[2022-11-22] MEDS: Metoprolol Tartrate 25 MG TAB PO SCH ×2 (09:44→21:05)
[2022-11-23] MEDS: Metoprolol Tartrate 25 MG TAB PO SCH ×2 (08:57→21:22)
[2022-11-23] MEDS: Ziprasidone 20 MG CAP PO SCH ×2 (08:59→21:24)
[2022-11-23] MEDS: Benztropine 1 MG TAB PO SCH (08:59)
[2022-11-24] MEDS: Metoprolol Tartrate 25 MG TAB PO SCH ×2 (08:46→21:17)
[2022-11-24] MEDS: Benztropine 1 MG TAB PO SCH (08:46)
[2022-11-24] MEDS: Ziprasidone 20 MG CAP PO SCH ×2 (08:46→21:17)
[2022-11-25] MEDS: Benztropine 1 MG TAB PO SCH (09:12)
[2022-11-25] MEDS: Metoprolol Tartrate 25 MG TAB PO SCH ×2 (09:12→20:54)
[2022-11-25] MEDS: Ziprasidone 20 MG CAP PO SCH ×2 (09:12→20:54)
[2022-11-26] MEDS: Ziprasidone 20 MG CAP PO SCH ×2 (08:24→20:29)
[2022-11-26] MEDS: Metoprolol Tartrate 25 MG TAB PO SCH ×2 (08:25→20:29)
[2022-11-26] MEDS: Benztropine 1 MG TAB PO SCH (08:25)
[2022-11-27] MEDS: Ziprasidone 20 MG CAP PO SCH ×2 (08:20→21:07)
[2022-11-27] MEDS: Benztropine 1 MG TAB PO SCH (08:21)
[2022-11-27] MEDS: Metoprolol Tartrate 25 MG TAB PO SCH ×2 (08:21→21:06)
[2022-11-28] MEDS: Benztropine 1 MG TAB PO SCH (08:46)
[2022-11-28] MEDS: Metoprolol Tartrate 25 MG TAB PO SCH ×2 (08:46→20:03)
[2022-11-28] MEDS: Ziprasidone 20 MG CAP PO SCH ×2 (08:49→20:03)
[2022-11-29] MEDS: Benztropine 1 MG TAB PO SCH (08:45)
[2022-11-29] MEDS: Ziprasidone 20 MG CAP PO SCH ×2 (08:45→20:03)
[2022-11-29] MEDS: Metoprolol Tartrate 25 MG TAB PO SCH ×2 (08:48→20:03)
[2022-11-30 06:18] LABS: #Basophils 0.1 thou/uL (0.0-0.2); #Eosinphils 0.2 thou/uL (0.0-0.7); #Lymphocytes 1.5 thou/uL (1.20-3.40); #Monocytes 0.5 thou/uL (0.11-0.59); #Neutrophils 3.5 thou/uL (1.40-6.50); %Basophils 0.9 % (0.0-1.0); %Eosinophils 3.9 % (0.0-10.0); %Lymphocytes 25.9 % (21.0-51.0); %Monocytes 8.9 % (0.0-10.0); %Neutrophils 60.5 % (42.0-75.0); Mean Corpuscular Volume 91.1 fl (78.0-98.0); Mean Platelet Volume 8.4 fL (7.4-10.4); Platelet Count 260 10x3/uL (130-400); RBC Distribution Width 14.8 % (11.5-14.5); Red Blood Cell (RBC) Count 3.86 mill/uL (4.70-6.10); White Blood Cell (WBC) Count 5.8 10x3/uL (4.8-10.8)
[2022-11-30 06:38] LABS: Anion Gap 13 mmol/L (10-20); BUN (Urea Nitrogen) 16 mg/dL (8.9-20.6); Calc. Creatinine Clearance 102 mL/min (70-130); Calcium 9.6 mg/dL (7.8-10.44); Carbon Dioxide 25 mmol/L (22-29); Chloride 105 mmol/L (98-107); Estimated GFR 113; Glucose 95 mg/dL (70-105); Potassium 3.9 mmol/L (3.5-5.1); Sodium 139 mmol/L (136-145)
[2022-11-30] MEDS: Metoprolol Tartrate 25 MG TAB PO SCH ×2 (09:37→20:16)
[2022-11-30] MEDS: Benztropine 1 MG TAB PO SCH (09:37)
[2022-11-30] MEDS: Ziprasidone 20 MG CAP PO SCH ×2 (09:37→20:16)
[2022-12-01] MEDS: Ziprasidone 20 MG CAP PO SCH ×2 (09:43→21:03)
[2022-12-01] MEDS: Metoprolol Tartrate 25 MG TAB PO SCH ×2 (09:43→21:04)
[2022-12-01] MEDS: Benztropine 1 MG TAB PO SCH (09:44)
[2022-12-02] MEDS: Benztropine 1 MG TAB PO SCH (08:47)
[2022-12-02] MEDS: Metoprolol Tartrate 25 MG TAB PO SCH ×2 (08:47→20:38)
[2022-12-02] MEDS: Ziprasidone 20 MG CAP PO SCH ×2 (08:47→20:39)
[2022-12-03] MEDS: Metoprolol Tartrate 25 MG TAB PO SCH ×2 (09:00→20:54)
[2022-12-03] MEDS: Ziprasidone 20 MG CAP PO SCH ×2 (09:00→20:55)
[2022-12-03] MEDS: Benztropine 1 MG TAB PO SCH (09:00)
[2022-12-04] MEDS: Ziprasidone 20 MG CAP PO SCH ×2 (08:19→20:09)
[2022-12-04] MEDS: Benztropine 1 MG TAB PO SCH (08:19)
[2022-12-04] MEDS: Metoprolol Tartrate 25 MG TAB PO SCH ×2 (08:19→20:09)
[2022-12-05] MEDS: Benztropine 1 MG TAB PO SCH (09:12)
[2022-12-05] MEDS: Ziprasidone 20 MG CAP PO SCH ×2 (09:12→20:50)
[2022-12-05] MEDS: Metoprolol Tartrate 25 MG TAB PO SCH ×2 (09:12→20:50)
[2022-12-06] MEDS: Metoprolol Tartrate 25 MG TAB PO SCH ×2 (09:11→20:46)
[2022-12-06] MEDS: Benztropine 1 MG TAB PO SCH (09:11)
[2022-12-06] MEDS: Ziprasidone 20 MG CAP PO SCH ×2 (09:12→20:46)
[2022-12-07] MEDS: Ziprasidone 20 MG CAP PO SCH ×2 (07:49→21:23)
[2022-12-07] MEDS: Metoprolol Tartrate 25 MG TAB PO SCH ×2 (07:49→21:23)
[2022-12-07] MEDS: Benztropine 1 MG TAB PO SCH (07:49)
[2022-12-08 06:25] LABS: Hemoglobin 10.9 g/dL (14.0-18.0); Platelet Count 245 10x3/uL (130-400)
[2022-12-08] MEDS: Ziprasidone 20 MG CAP PO SCH ×2 (08:37→20:10)
[2022-12-08] MEDS: Metoprolol Tartrate 25 MG TAB PO SCH ×2 (08:37→20:10)
[2022-12-08] MEDS: Benztropine 1 MG TAB PO SCH (08:41)
[2022-12-09] MEDS: Metoprolol Tartrate 25 MG TAB PO SCH ×2 (09:51→20:13)
[2022-12-09] MEDS: Ziprasidone 20 MG CAP PO SCH ×2 (09:51→20:13)
[2022-12-09] MEDS: Benztropine 1 MG TAB PO SCH (09:51)
[2022-12-10] MEDS: Metoprolol Tartrate 25 MG TAB PO SCH ×2 (08:56→20:51)
[2022-12-10] MEDS: Ziprasidone 20 MG CAP PO SCH ×2 (08:57→20:51)
[2022-12-10] MEDS: Benztropine 1 MG TAB PO SCH (08:57)
[2022-12-11] MEDS: Ziprasidone 20 MG CAP PO SCH ×2 (08:26→21:45)
[2022-12-11] MEDS: Benztropine 1 MG TAB PO SCH (08:26)
[2022-12-11] MEDS: Metoprolol Tartrate 25 MG TAB PO SCH ×2 (08:27→21:45)
[2022-12-12] MEDS: Benztropine 1 MG TAB PO SCH (08:41)
[2022-12-12] MEDS: Ziprasidone 20 MG CAP PO SCH ×2 (08:41→20:49)
[2022-12-12] MEDS: Metoprolol Tartrate 25 MG TAB PO SCH ×2 (08:41→20:49)
[2022-12-13 06:44] LABS: #Lymphocytes 1.8 thou/uL (1.20-3.40); #Monocytes 0.4 thou/uL (0.11-0.59); #Neutrophils 3.1 thou/uL (1.40-6.50); %Basophils 0.6 % (0.0-1.0); %Eosinophils 0.8 % (0.0-10.0); %Lymphocytes 34.1 % (21.0-51.0); %Neutrophils 57.6 % (42.0-75.0); Hemoglobin 11.3 g/dL (14.0-18.0); Mean Corpuscular HGB CONC 33.7 g/dL (32.0-36.0); Mean Corpuscular Hemoglobin 30.6 pg (27.0-31.0); Mean Platelet Volume 7.7 fL (7.4-10.4); Platelet Count 241 10x3/uL (130-400); RBC Distribution Width 14.3 % (11.5-14.5); Red Blood Cell (RBC) Count 3.69 mill/uL (4.70-6.10); White Blood Cell (WBC) Count 5.4 10x3/uL (4.8-10.8)
[2022-12-13 07:13] LABS: Anion Gap 12 mmol/L (10-20); BUN (Urea Nitrogen) 11 mg/dL (8.9-20.6); Calc. Creatinine Clearance 135 mL/min (70-130); Calcium 9.3 mg/dL (7.8-10.44); Carbon Dioxide 25 mmol/L (22-29); Chloride 105 mmol/L (98-107); Estimated GFR 114; Glucose 100 mg/dL (70-105); Sodium 138 mmol/L (136-145)
[2022-12-13] MEDS: Benztropine 1 MG TAB PO SCH (09:09)
[2022-12-13] MEDS: Metoprolol Tartrate 25 MG TAB PO SCH ×2 (09:09→19:59)
[2022-12-13] MEDS: Ziprasidone 20 MG CAP PO SCH ×2 (09:09→20:00)
[2022-12-14] MEDS: Benztropine 1 MG TAB PO SCH (08:45)
[2022-12-14] MEDS: Metoprolol Tartrate 25 MG TAB PO SCH ×2 (08:45→21:08)
[2022-12-14] MEDS: Ziprasidone 20 MG CAP PO SCH ×2 (08:45→21:08)
[2022-12-15] MEDS: Metoprolol Tartrate 25 MG TAB PO SCH ×2 (08:54→21:44)
[2022-12-15] MEDS: Ziprasidone 20 MG CAP PO SCH ×2 (08:54→21:44)
[2022-12-15] MEDS: Benztropine 1 MG TAB PO SCH (08:54)
[2022-12-16] MEDS: Ziprasidone 20 MG CAP PO SCH ×2 (08:51→22:07)
[2022-12-16] MEDS: Benztropine 1 MG TAB PO SCH (08:51)
[2022-12-16] MEDS: Metoprolol Tartrate 25 MG TAB PO SCH ×2 (08:51→22:46)
[2022-12-17] MEDS: Benztropine 1 MG TAB PO SCH (09:21)
[2022-12-17] MEDS: Ziprasidone 20 MG CAP PO SCH ×2 (09:21→20:35)
[2022-12-17] MEDS: Metoprolol Tartrate 25 MG TAB PO SCH ×2 (09:22→20:34)
[2022-12-18] MEDS: Benztropine 1 MG TAB PO SCH (08:23)
[2022-12-18] MEDS: Ziprasidone 20 MG CAP PO SCH ×2 (08:24→20:54)
[2022-12-18] MEDS: Metoprolol Tartrate 25 MG TAB PO SCH ×2 (08:24→20:54)
[2022-12-19] MEDS: Benztropine 1 MG TAB PO SCH (08:40)
[2022-12-19] MEDS: Metoprolol Tartrate 25 MG TAB PO SCH ×2 (08:40→21:52)
[2022-12-19] MEDS: Ziprasidone 20 MG CAP PO SCH ×2 (08:40→21:51)
[2022-12-20] MEDS: Metoprolol Tartrate 25 MG TAB PO SCH ×2 (08:43→19:58)
[2022-12-20] MEDS: Benztropine 1 MG TAB PO SCH (09:20)
[2022-12-20] MEDS: Ziprasidone 20 MG CAP PO SCH ×2 (09:20→19:59)
[2022-12-21] MEDS: Benztropine 1 MG TAB PO SCH (09:08)
[2022-12-21] MEDS: Metoprolol Tartrate 25 MG TAB PO SCH ×2 (09:08→21:41)
[2022-12-21] MEDS: Ziprasidone 20 MG CAP PO SCH ×2 (09:08→21:42)
[2022-12-22] MEDS: Metoprolol Tartrate 25 MG TAB PO SCH ×2 (10:52→20:30)
[2022-12-22] MEDS: Benztropine 1 MG TAB PO SCH (10:53)
[2022-12-22] MEDS: Ziprasidone 20 MG CAP PO SCH ×2 (10:59→20:31)
[2022-12-23] MEDS: Metoprolol Tartrate 25 MG TAB PO SCH ×2 (10:34→20:59)
[2022-12-23] MEDS: Ziprasidone 20 MG CAP PO SCH ×2 (10:35→20:59)
[2022-12-23] MEDS: Benztropine 1 MG TAB PO SCH (10:35)
[2022-12-24 08:09] LABS: Hemoglobin 11.4 g/dL (14.0-18.0); Mean Corpuscular HGB CONC 31.4 g/dL (32.0-36.0); Mean Corpuscular Hemoglobin 29.1 pg (27.0-31.0); Mean Corpuscular Volume 92.6 fl (78.0-98.0); Mean Platelet Volume 9.5 fL (7.4-10.4); Platelet Count 315 10x3/uL (130-400); RBC Distribution Width 13.9 % (11.5-14.5); Red Blood Cell (RBC) Count 3.92 mill/uL (4.70-6.10); White Blood Cell (WBC) Count 4.7 10x3/uL (4.8-10.8)
[2022-12-24 08:34] LABS: Anion Gap 12 mmol/L (10-20); BUN (Urea Nitrogen) 9 mg/dL (8.9-20.6); Calc. Creatinine Clearance 96 mL/min (70-130); Calcium 9.6 mg/dL (7.8-10.44); Carbon Dioxide 26 mmol/L (22-29); Chloride 106 mmol/L (98-107); Estimated GFR 112; Glucose 99 mg/dL (70-105); Potassium 3.9 mmol/L (3.5-5.1); Sodium 140 mmol/L (136-145)
[2022-12-24] MEDS: Metoprolol Tartrate 25 MG TAB PO SCH ×2 (11:06→22:08)
[2022-12-24] MEDS: Ziprasidone 20 MG CAP PO SCH ×2 (11:06→22:08)
[2022-12-24] MEDS: Benztropine 1 MG TAB PO SCH (11:06)
[2022-12-25] MEDS: Metoprolol Tartrate 25 MG TAB PO SCH ×2 (09:53→21:15)
[2022-12-25] MEDS: Ziprasidone 20 MG CAP PO SCH ×2 (09:53→21:15)
[2022-12-25] MEDS: Benztropine 1 MG TAB PO SCH (09:53)
[2022-12-26] MEDS: Ziprasidone 20 MG CAP PO SCH ×2 (10:43→19:42)
[2022-12-26] MEDS: Benztropine 1 MG TAB PO SCH (10:43)
[2022-12-26] MEDS: Metoprolol Tartrate 25 MG TAB PO SCH ×2 (10:43→19:42)
[2022-12-27] MEDS: Metoprolol Tartrate 25 MG TAB PO SCH ×2 (08:54→19:56)
[2022-12-27] MEDS: Benztropine 1 MG TAB PO SCH (08:55)
[2022-12-27] MEDS: Ziprasidone 20 MG CAP PO SCH ×2 (08:55→19:56)
[2022-12-28] MEDS: Metoprolol Tartrate 25 MG TAB PO SCH ×2 (09:32→20:18)
[2022-12-28] MEDS: Benztropine 1 MG TAB PO SCH (09:33)
[2022-12-28] MEDS: Ziprasidone 20 MG CAP PO SCH ×2 (09:33→20:17)
[2022-12-29] MEDS: Metoprolol Tartrate 25 MG TAB PO SCH ×2 (09:45→20:45)
[2022-12-29] MEDS: Benztropine 1 MG TAB PO SCH (09:45)
[2022-12-29] MEDS: Ziprasidone 20 MG CAP PO SCH ×2 (09:46→20:45)
[2022-12-30] MEDS: Ziprasidone 20 MG CAP PO SCH ×2 (09:33→20:40)
[2022-12-30] MEDS: Benztropine 1 MG TAB PO SCH (09:34)
[2022-12-30] MEDS: Metoprolol Tartrate 25 MG TAB PO SCH ×2 (09:34→20:40)
[2022-12-31] MEDS: Ziprasidone 20 MG CAP PO SCH ×2 (08:18→19:25)
[2022-12-31] MEDS: Benztropine 1 MG TAB PO SCH (08:18)
[2022-12-31] MEDS: Metoprolol Tartrate 25 MG TAB PO SCH ×2 (08:43→19:26)
[2023-01-01 05:56] LABS: Hemoglobin 9.8 g/dL (14.0-18.0); Platelet Count 263 10x3/uL (130-400)
[2023-01-01] MEDS: Benztropine 1 MG TAB PO SCH (09:59)
[2023-01-01] MEDS: Ziprasidone 20 MG CAP PO SCH ×2 (09:59→20:48)
[2023-01-01] MEDS: Metoprolol Tartrate 25 MG TAB PO SCH ×2 (10:00→20:48)
[2023-01-02] MEDS: Benztropine 1 MG TAB PO SCH (09:44)
[2023-01-02] MEDS: Ziprasidone 20 MG CAP PO SCH ×2 (09:44→20:33)
[2023-01-02] MEDS: Metoprolol Tartrate 25 MG TAB PO SCH ×2 (09:45→20:34)
[2023-01-03] MEDS: Benztropine 1 MG TAB PO SCH (09:36)
[2023-01-03] MEDS: Metoprolol Tartrate 25 MG TAB PO SCH ×2 (09:36→20:09)
[2023-01-03] MEDS: Ziprasidone 20 MG CAP PO SCH ×2 (09:36→20:09)
[2023-01-04] MEDS: Metoprolol Tartrate 25 MG TAB PO SCH ×2 (08:12→21:28)
[2023-01-04] MEDS: Benztropine 1 MG TAB PO SCH (08:12)
[2023-01-04] MEDS: Ziprasidone 20 MG CAP PO SCH ×2 (08:12→21:27)
[2023-01-05] MEDS: Benztropine 1 MG TAB PO SCH (09:23)
[2023-01-05] MEDS: Ziprasidone 20 MG CAP PO SCH ×2 (09:23→19:30)
[2023-01-05] MEDS: Metoprolol Tartrate 25 MG TAB PO SCH ×2 (09:23→19:30)
[2023-01-06] MEDS: Benztropine 1 MG TAB PO SCH (09:10)
[2023-01-06] MEDS: Metoprolol Tartrate 25 MG TAB PO SCH ×2 (09:11→19:29)
[2023-01-06] MEDS: Ziprasidone 20 MG CAP PO SCH ×2 (09:11→19:29)
[2023-01-07] MEDS: Ziprasidone 20 MG CAP PO SCH ×2 (08:00→21:08)
[2023-01-07] MEDS: Metoprolol Tartrate 25 MG TAB PO SCH ×2 (08:00→21:08)
[2023-01-07] MEDS: Benztropine 1 MG TAB PO SCH (08:00)
[2023-01-08] MEDS: Benztropine 1 MG TAB PO SCH (09:12)
[2023-01-08] MEDS: Ziprasidone 20 MG CAP PO SCH ×2 (09:12→20:05)
[2023-01-08] MEDS: Metoprolol Tartrate 25 MG TAB PO SCH ×2 (09:12→20:05)
[2023-01-09 06:05] LABS: Hemoglobin 10.8 g/dL (14.0-18.0); Platelet Count 280 10x3/uL (130-400)
[2023-01-09] MEDS: Ziprasidone 20 MG CAP PO SCH (09:29)
[2023-01-09] MEDS: Metoprolol Tartrate 25 MG TAB PO SCH ×2 (09:29→20:48)
[2023-01-09] MEDS: Benztropine 1 MG TAB PO SCH (09:30)
[2023-01-09] MEDS: risperiDONE 1 MG TAB PO SCH (20:48)
[2023-01-10] MEDS: Metoprolol Tartrate 25 MG TAB PO SCH ×2 (08:15→19:44)
[2023-01-10] MEDS: risperiDONE 1 MG TAB PO SCH (19:44)
[2023-01-11 06:14] LABS: #Eosinphils 0.2 thou/uL (0.0-0.7); #Monocytes 0.6 thou/uL (0.11-0.59); #Neutrophils 2.2 thou/uL (1.40-6.50); %Basophils 0.8 % (0.0-1.0); %Eosinophils 3.8 % (0.0-10.0); %Lymphocytes 43.2 % (21.0-51.0); %Monocytes 10.5 % (0.0-10.0); %Neutrophils 41.5 % (42.0-75.0); Hemoglobin 11.3 g/dL (14.0-18.0); Mean Corpuscular HGB CONC 32.6 g/dL (32.0-36.0); Mean Corpuscular Hemoglobin 28.5 pg (27.0-31.0); Mean Corpuscular Volume 87.4 fl (78.0-98.0); Platelet Count 268 10x3/uL (130-400); RBC Distribution Width 13.6 % (11.5-14.5); Red Blood Cell (RBC) Count 3.97 mill/uL (4.70-6.10); White Blood Cell (WBC) Count 5.3 10x3/uL (4.8-10.8)
[2023-01-11 06:38] LABS: Anion Gap 10 mmol/L (10-20); BUN (Urea Nitrogen) 13 mg/dL (8.9-20.6); Calc. Creatinine Clearance 104 mL/min (70-130); Calcium 9.7 mg/dL (7.8-10.44); Carbon Dioxide 26 mmol/L (22-29); Chloride 106 mmol/L (98-107); Estimated GFR 113; Glucose 94 mg/dL (70-105); Sodium 138 mmol/L (136-145)
[2023-01-11] MEDS: Metoprolol Tartrate 25 MG TAB PO SCH ×2 (09:06→19:50)
[2023-01-11 11:41] LABS: Syphilis Antibody Nonreactive (Nonreactive); Syphilis Antibody Index 0.06 S/CO (<1.00 Non-Reactive)
[2023-01-11] MEDS: risperiDONE 1 MG TAB PO SCH (19:51)
[2023-01-12 06:52] LABS: HIV (1/2) Antibody/Antigen Non-Reactive (NonReactive); HIV 1/2 INDEX 0.09 S/CO (<1.00)
[2023-01-12] MEDS: Metoprolol Tartrate 25 MG TAB PO SCH ×2 (08:51→20:40)
[2023-01-12] MEDS: risperiDONE 1 MG TAB PO SCH (20:40)
[2023-01-13] MEDS: Metoprolol Tartrate 25 MG TAB PO SCH ×2 (09:53→20:34)
[2023-01-13] MEDS: risperiDONE 1 MG TAB PO SCH (20:34)
[2023-01-14] MEDS: Metoprolol Tartrate 25 MG TAB PO SCH ×3 (09:34→20:12)
[2023-01-14] MEDS: risperiDONE 1 MG TAB PO SCH (20:12)
[2023-01-15] MEDS: Metoprolol Tartrate 25 MG TAB PO SCH ×2 (09:01→20:35)
[2023-01-15] MEDS: risperiDONE 3 MG TAB PO SCH (20:35)
[2023-01-16] MEDS: Metoprolol Tartrate 25 MG TAB PO SCH ×2 (09:30→22:24)
[2023-01-16] MEDS: risperiDONE 3 MG TAB PO SCH (22:24)
[2023-01-17] MEDS: Metoprolol Tartrate 25 MG TAB PO SCH ×2 (09:32→20:38)
[2023-01-17] MEDS: risperiDONE 3 MG TAB PO SCH (20:38)
[2023-01-18 08:37] LABS: #Eosinphils 0.2 thou/uL (0.0-0.7); #Monocytes 0.4 thou/uL (0.11-0.59); #Neutrophils 1.8 thou/uL (1.40-6.50); %Basophils 0.7 % (0.0-1.0); %Eosinophils 5.2 % (0.0-10.0); %Lymphocytes 42.6 % (21.0-51.0); %Monocytes 9.9 % (0.0-10.0); %Neutrophils 41.4 % (42.0-75.0); Mean Corpuscular Hemoglobin 28.7 pg (27.0-31.0); Mean Corpuscular Volume 86.9 fl (78.0-98.0); Mean Platelet Volume 9.9 fL (7.4-10.4); Platelet Count 270 10x3/uL (130-400); RBC Distribution Width 13.6 % (11.5-14.5); Red Blood Cell (RBC) Count 3.83 mill/uL (4.70-6.10); White Blood Cell (WBC) Count 4.3 10x3/uL (4.8-10.8)
[2023-01-18 08:56] LABS: Anion Gap 12 mmol/L (10-20); BUN (Urea Nitrogen) 12 mg/dL (8.9-20.6); Calc. Creatinine Clearance 105 mL/min (70-130); Calcium 9.7 mg/dL (7.8-10.44); Carbon Dioxide 25 mmol/L (22-29); Chloride 105 mmol/L (98-107); Estimated GFR 113; Glucose 93 mg/dL (70-105); Potassium 3.9 mmol/L (3.5-5.1); Sodium 138 mmol/L (136-145)
[2023-01-18] MEDS: Metoprolol Tartrate 25 MG TAB PO SCH ×2 (09:15→22:39)
[2023-01-18] MEDS: risperiDONE 3 MG TAB PO SCH (22:39)
[2023-01-19] MEDS: Metoprolol Tartrate 25 MG TAB PO SCH ×3 (03:22→20:38)
[2023-01-19] MEDS: risperiDONE 3 MG TAB PO SCH (20:39)
[2023-01-20] MEDS: Metoprolol Tartrate 25 MG TAB PO SCH ×2 (10:34→20:23)
[2023-01-20] MEDS: risperiDONE 3 MG TAB PO SCH (20:23)
[2023-01-21] MEDS: Metoprolol Tartrate 25 MG TAB PO SCH ×2 (09:19→20:47)
[2023-01-21] MEDS: risperiDONE 3 MG TAB PO SCH (20:47)
[2023-01-22] MEDS: Metoprolol Tartrate 25 MG TAB PO SCH ×2 (08:04→20:06)
[2023-01-22] MEDS: risperiDONE 3 MG TAB PO SCH (20:06)
[2023-01-23] MEDS: Metoprolol Tartrate 25 MG TAB PO SCH ×2 (09:19→22:11)
[2023-01-23 09:49] LABS: #Eosinphils 0.2 thou/uL (0.0-0.7); #Monocytes 0.5 thou/uL (0.11-0.59); #Neutrophils 2.3 thou/uL (1.40-6.50); %Basophils 0.9 % (0.0-1.0); %Eosinophils 3.6 % (0.0-10.0); %Lymphocytes 33.9 % (21.0-51.0); %Monocytes 10.3 % (0.0-10.0); %Neutrophils 51.1 % (42.0-75.0); Hemoglobin 11.5 g/dL (14.0-18.0); Mean Corpuscular HGB CONC 34.2 g/dL (32.0-36.0); Mean Corpuscular Hemoglobin 29.7 pg (27.0-31.0); Mean Corpuscular Volume 86.8 fl (78.0-98.0); Mean Platelet Volume 9.5 fL (7.4-10.4); Platelet Count 285 10x3/uL (130-400); RBC Distribution Width 13.2 % (11.5-14.5); Red Blood Cell (RBC) Count 3.87 mill/uL (4.70-6.10); White Blood Cell (WBC) Count 4.5 10x3/uL (4.8-10.8)
[2023-01-23 10:11] LABS: Anion Gap 14 mmol/L (10-20); BUN (Urea Nitrogen) 11 mg/dL (8.9-20.6); Calc. Creatinine Clearance 102 mL/min (70-130); Calcium 9.3 mg/dL (7.8-10.44); Carbon Dioxide 24 mmol/L (22-29); Chloride 104 mmol/L (98-107); Estimated GFR 112; Glucose 150 mg/dL (70-105); Potassium 3.5 mmol/L (3.5-5.1); Sodium 138 mmol/L (136-145)
[2023-01-23] MEDS: risperiDONE 3 MG TAB PO SCH (22:12)
[2023-01-24 06:22] LABS: #Eosinphils 0.2 thou/uL (0.0-0.7); #Monocytes 0.6 thou/uL (0.11-0.59); #Neutrophils 1.5 thou/uL (1.40-6.50); %Basophils 0.9 % (0.0-1.0); %Eosinophils 4.8 % (0.0-10.0); %Lymphocytes 49.7 % (21.0-51.0); %Neutrophils 31.4 % (42.0-75.0); Hemoglobin 11.3 g/dL (14.0-18.0); Mean Corpuscular HGB CONC 33.4 g/dL (32.0-36.0); Mean Corpuscular Hemoglobin 29.4 pg (27.0-31.0); Mean Platelet Volume 9.4 fL (7.4-10.4); Platelet Count 279 10x3/uL (130-400); RBC Distribution Width 13.2 % (11.5-14.5); Red Blood Cell (RBC) Count 3.84 mill/uL (4.70-6.10); White Blood Cell (WBC) Count 4.6 10x3/uL (4.8-10.8)
[2023-01-24 06:45] LABS: Anion Gap 9 mmol/L (10-20); BUN (Urea Nitrogen) 12 mg/dL (8.9-20.6); Calc. Creatinine Clearance 109 mL/min (70-130); Calcium 9.6 mg/dL (7.8-10.44); Carbon Dioxide 28 mmol/L (22-29); Chloride 105 mmol/L (98-107); Estimated GFR 114; Glucose 89 mg/dL (70-105); Sodium 138 mmol/L (136-145)
[2023-01-24] MEDS ORDERED: Sodium Chloride 0.9% 1,000 ML IV SCH (08:15)
[2023-01-24] MEDS: Metoprolol Tartrate 25 MG TAB PO SCH (09:09)
[2023-01-24] MEDS: risperiDONE 3 MG TAB PO SCH (19:38)
[2023-01-25 07:16] LABS: #Basophils 0.1 thou/uL (0.0-0.2); #Eosinphils 0.2 thou/uL (0.0-0.7); #Monocytes 0.5 thou/uL (0.11-0.59); #Neutrophils 1.5 thou/uL (1.40-6.50); %Basophils 1.3 % (0.0-1.0); %Eosinophils 4.2 % (0.0-10.0); %Lymphocytes 48.8 % (21.0-51.0); %Monocytes 11.7 % (0.0-10.0); %Neutrophils 33.6 % (42.0-75.0); Hemoglobin 11.3 g/dL (14.0-18.0); Mean Corpuscular HGB CONC 32.6 g/dL (32.0-36.0); Mean Corpuscular Hemoglobin 28.4 pg (27.0-31.0); Mean Corpuscular Volume 87.2 fl (78.0-98.0); Mean Platelet Volume 9.4 fL (7.4-10.4); Platelet Count 279 10x3/uL (130-400); Red Blood Cell (RBC) Count 3.98 mill/uL (4.70-6.10); White Blood Cell (WBC) Count 4.5 10x3/uL (4.8-10.8)
[2023-01-25 07:37] LABS: Anion Gap 12 mmol/L (10-20); BUN (Urea Nitrogen) 11 mg/dL (8.9-20.6); Calc. Creatinine Clearance 110 mL/min (70-130); Calcium 9.6 mg/dL (7.8-10.44); Carbon Dioxide 25 mmol/L (22-29); Chloride 104 mmol/L (98-107); Estimated GFR 114; Glucose 92 mg/dL (70-105); Potassium 3.6 mmol/L (3.5-5.1); Sodium 137 mmol/L (136-145)
[2023-01-25] MEDS: risperiDONE 3 MG TAB PO SCH (21:00)
[2023-01-26 06:26] LABS: #Eosinphils 0.2 thou/uL (0.0-0.7); #Monocytes 0.5 thou/uL (0.11-0.59); #Neutrophils 1.6 thou/uL (1.40-6.50); %Basophils 0.8 % (0.0-1.0); %Eosinophils 4.4 % (0.0-10.0); %Lymphocytes 51.1 % (21.0-51.0); %Monocytes 10.8 % (0.0-10.0); %Neutrophils 32.9 % (42.0-75.0); Hemoglobin 11.2 g/dL (14.0-18.0); Mean Corpuscular HGB CONC 33.7 g/dL (32.0-36.0); Mean Corpuscular Hemoglobin 29.3 pg (27.0-31.0); Mean Corpuscular Volume 86.9 fl (78.0-98.0); Mean Platelet Volume 9.7 fL (7.4-10.4); Platelet Count 282 10x3/uL (130-400); RBC Distribution Width 13.1 % (11.5-14.5); Red Blood Cell (RBC) Count 3.82 mill/uL (4.70-6.10); White Blood Cell (WBC) Count 4.7 10x3/uL (4.8-10.8)
[2023-01-26 06:51] LABS: ALT (SGPT) 11 U/L (8-55); AST (SGOT) 9 U/L (5-34); Albumin 3.6 g/dL (3.5-5.0); Alkaline Phosphatase 66 U/L (40-110); Anion Gap 10 mmol/L (10-20); BUN (Urea Nitrogen) 10 mg/dL (8.9-20.6); Bilirubin, Total 0.5 mg/dL (0.2-1.2); Calc. Creatinine Clearance 109 mL/min (70-130); Calcium 9.7 mg/dL (7.8-10.44); Carbon Dioxide 27 mmol/L (22-29); Chloride 104 mmol/L (98-107); Estimated GFR 114; Globulin 2.6 g/dL (2.4-3.5); Glucose 93 mg/dL (70-105); Potassium 3.7 mmol/L (3.5-5.1); Protein, Total 6.2 g/dL (6.0-8.3); Sodium 137 mmol/L (136-145)
[2023-01-26] MEDS: risperiDONE 3 MG TAB PO SCH (20:37)
[2023-01-27 06:20] LABS: #Eosinphils 0.2 thou/uL (0.0-0.7); #Monocytes 0.5 thou/uL (0.11-0.59); #Neutrophils 1.7 thou/uL (1.40-6.50); %Basophils 0.9 % (0.0-1.0); %Eosinophils 4.3 % (0.0-10.0); %Lymphocytes 45.7 % (21.0-51.0); %Monocytes 11.7 % (0.0-10.0); %Neutrophils 37.2 % (42.0-75.0); Hemoglobin 10.9 g/dL (14.0-18.0); Mean Corpuscular HGB CONC 33.3 g/dL (32.0-36.0); Mean Corpuscular Hemoglobin 29.5 pg (27.0-31.0); Mean Corpuscular Volume 88.6 fl (78.0-98.0); Mean Platelet Volume 9.7 fL (7.4-10.4); Platelet Count 260 10x3/uL (130-400); RBC Distribution Width 13.2 % (11.5-14.5); Red Blood Cell (RBC) Count 3.69 mill/uL (4.70-6.10); White Blood Cell (WBC) Count 4.6 10x3/uL (4.8-10.8)
[2023-01-27 12:49] LABS: Chloride 106 mmol/L (98-107); Potassium 3.8 mmol/L (3.5-5.1); Sodium 135 mmol/L (136-145)
[2023-01-27 12:50] LABS: Calcium 9.4 mg/dL (7.8-10.44); Glucose 94 mg/dL (70-105)
[2023-01-27 12:52] LABS: Anion Gap 12 mmol/L (10-20); Carbon Dioxide 21 mmol/L (22-29)
[2023-01-27 12:53] LABS: Calc. Creatinine Clearance 106 mL/min (70-130); Estimated GFR 113
[2023-01-27 12:54] LABS: BUN (Urea Nitrogen) 8 mg/dL (8.9-20.6)
[2023-01-27] MEDS: risperiDONE 3 MG TAB PO SCH (20:38)
[2023-01-28] MEDS: risperiDONE 3 MG TAB PO SCH (19:59)
[2023-01-29] MEDS: risperiDONE 3 MG TAB PO SCH (20:34)
[2023-01-30] MEDS: risperiDONE 3 MG TAB PO SCH (21:22)
[2023-01-31] MEDS: risperiDONE 3 MG TAB PO SCH (20:16)
[2023-02-01] MEDS: risperiDONE 3 MG TAB PO SCH (19:52)
[2023-02-02] MEDS: risperiDONE 1 MG TAB PO SCH (20:34)
[2023-02-03] MEDS: risperiDONE 1 MG TAB PO SCH (21:06)
[2023-02-04 05:55] LABS: Hemoglobin 11.2 g/dL (14.0-18.0); Platelet Count 292 10x3/uL (130-400)
[2023-02-04] MEDS: risperiDONE 1 MG TAB PO SCH (20:46)
[2023-02-05] MEDS: risperiDONE 1 MG TAB PO SCH (20:29)
[2023-02-06] MEDS: risperiDONE 1 MG TAB PO SCH (20:43)
[2023-02-07] MEDS: risperiDONE 1 MG TAB PO SCH (19:56)
[2023-02-08] MEDS: risperiDONE 1 MG TAB PO SCH (22:00)
[2023-02-09] MEDS: risperiDONE 1 MG TAB PO SCH (20:09)
[2023-02-10] MEDS: risperiDONE 1 MG TAB PO SCH (20:28)
[2023-02-11] MEDS: risperiDONE 1 MG TAB PO SCH (19:36)
[2023-02-12] MEDS: risperiDONE 1 MG TAB PO SCH (21:11)
[2023-02-13] MEDS: risperiDONE 1 MG TAB PO SCH (20:37)
[2023-02-13] MEDS: Metoprolol Tartrate 25 MG TAB PO SCH (20:37)
[2023-02-14] MEDS: Metoprolol Tartrate 25 MG TAB PO SCH ×2 (10:30→22:48)
[2023-02-14] MEDS: risperiDONE 1 MG TAB PO SCH (22:49)
[2023-02-15 06:30] LABS: #Basophils 0.1 thou/uL (0.0-0.2); #Eosinphils 0.2 thou/uL (0.0-0.7); #Monocytes 0.5 thou/uL (0.11-0.59); #Neutrophils 3.1 thou/uL (1.40-6.50); %Basophils 0.8 % (0.0-1.0); %Eosinophils 3.1 % (0.0-10.0); %Lymphocytes 39.5 % (21.0-51.0); %Neutrophils 48.4 % (42.0-75.0); Hemoglobin 11.7 g/dL (14.0-18.0); Mean Corpuscular HGB CONC 33.3 g/dL (32.0-36.0); Mean Corpuscular Hemoglobin 28.8 pg (27.0-31.0); Mean Corpuscular Volume 86.5 fl (78.0-98.0); Mean Platelet Volume 9.2 fL (7.4-10.4); Platelet Count 356 10x3/uL (130-400); RBC Distribution Width 12.4 % (11.5-14.5); Red Blood Cell (RBC) Count 4.06 mill/uL (4.70-6.10); White Blood Cell (WBC) Count 6.4 10x3/uL (4.8-10.8)
[2023-02-15 06:59] LABS: Anion Gap 12 mmol/L (10-20); BUN (Urea Nitrogen) 11 mg/dL (8.9-20.6); Calc. Creatinine Clearance 111 mL/min (70-130); Calcium 9.6 mg/dL (7.8-10.44); Carbon Dioxide 24 mmol/L (22-29); Chloride 106 mmol/L (98-107); Estimated GFR 114; Glucose 87 mg/dL (70-105); Potassium 4.2 mmol/L (3.5-5.1); Sodium 138 mmol/L (136-145)
[2023-02-15] MEDS: Metoprolol Tartrate 25 MG TAB PO SCH ×2 (10:07→20:40)
[2023-02-15] MEDS: Multivit, Therapeutic 1 TAB PO SCH (20:39)
[2023-02-15] MEDS: risperiDONE 1 MG TAB PO SCH (20:39)
[2023-02-16] MEDS: Metoprolol Tartrate 25 MG TAB PO SCH ×2 (07:52→21:13)
[2023-02-16] MEDS: risperiDONE 1 MG TAB PO SCH (20:43)
[2023-02-16] MEDS: Multivit, Therapeutic 1 TAB PO SCH (20:44)
[2023-02-17] MEDS: Metoprolol Tartrate 25 MG TAB PO SCH ×2 (08:17→20:38)
[2023-02-17] MEDS: Multivit, Therapeutic 1 TAB PO SCH (20:38)
[2023-02-17] MEDS: risperiDONE 1 MG TAB PO SCH (20:38)
[2023-02-18] MEDS: Metoprolol Tartrate 25 MG TAB PO SCH ×2 (09:23→21:27)
[2023-02-18] MEDS: Multivit, Therapeutic 1 TAB PO SCH (21:26)
[2023-02-18] MEDS: risperiDONE 1 MG TAB PO SCH (21:26)
[2023-02-19] MEDS: Metoprolol Tartrate 25 MG TAB PO SCH ×2 (09:30→20:10)
[2023-02-19] MEDS: risperiDONE 1 MG TAB PO SCH (20:09)
[2023-02-19] MEDS: Multivit, Therapeutic 1 TAB PO SCH (20:10)
[2023-02-20 05:35] LABS: #Eosinphils 0.2 thou/uL (0.0-0.7); #Monocytes 0.5 thou/uL (0.11-0.59); #Neutrophils 3.2 thou/uL (1.40-6.50); %Basophils 0.6 % (0.0-1.0); %Eosinophils 3.4 % (0.0-10.0); %Lymphocytes 36.8 % (21.0-51.0); %Monocytes 7.9 % (0.0-10.0); %Neutrophils 51.1 % (42.0-75.0); Hemoglobin 11.6 g/dL (14.0-18.0); Mean Corpuscular HGB CONC 33.8 g/dL (32.0-36.0); Mean Corpuscular Hemoglobin 29.2 pg (27.0-31.0); Mean Corpuscular Volume 86.4 fl (78.0-98.0); Mean Platelet Volume 9.7 fL (7.4-10.4); Platelet Count 325 10x3/uL (130-400); RBC Distribution Width 12.6 % (11.5-14.5); Red Blood Cell (RBC) Count 3.97 mill/uL (4.70-6.10); White Blood Cell (WBC) Count 6.2 10x3/uL (4.8-10.8)
[2023-02-20 05:59] LABS: Anion Gap 12 mmol/L (10-20); BUN (Urea Nitrogen) 12 mg/dL (8.9-20.6); Calc. Creatinine Clearance 105 mL/min (70-130); Calcium 9.4 mg/dL (7.8-10.44); Carbon Dioxide 25 mmol/L (22-29); Chloride 103 mmol/L (98-107); Estimated GFR 112; Glucose 140 mg/dL (70-105); Potassium 3.5 mmol/L (3.5-5.1); Sodium 136 mmol/L (136-145)
[2023-02-20] MEDS: Metoprolol Tartrate 25 MG TAB PO SCH ×2 (10:56→22:03)
[2023-02-20] MEDS: risperiDONE 1 MG TAB PO SCH (22:03)
[2023-02-20] MEDS: Multivit, Therapeutic 1 TAB PO SCH (22:03)
[2023-02-21] MEDS: Metoprolol Tartrate 25 MG TAB PO SCH ×2 (08:47→22:36)
[2023-02-21] MEDS: risperiDONE 1 MG TAB PO SCH (22:35)
[2023-02-21] MEDS: Multivit, Therapeutic 1 TAB PO SCH (22:36)
[2023-02-22] MEDS: Metoprolol Tartrate 25 MG TAB PO SCH ×2 (09:11→20:10)
[2023-02-22] MEDS: risperiDONE 1 MG TAB PO SCH (20:11)
[2023-02-22] MEDS: Multivit, Therapeutic 1 TAB PO SCH (20:11)
[2023-02-23 08:56] VITALS: BP 99/64; TEMP 98.2
[2023-02-23] MEDS: Metoprolol Tartrate 25 MG TAB PO SCH (09:27)
[2023-02-23 13:59] VITALS: BMI 19.0
== END 2023-02-23 16:25 | disposition short-term general hospital (02) | DRG 854 ==
LOC: ERS 16:44 → SURG A 19:14
PROVIDERS: ADMIT Student in an Organized Health Care Education/Training Program; ATTEND Emergency Medicine
PROC: 3E03329 Introduction of Other Anti-infective into Peripheral Vein, Percutaneous Approach (ICD-10-PCS; 2022-09-25)
PROC: 0Y6J0Z1 Detachment at Left Lower Leg, High, Open Approach (ICD-10-PCS; principal; 2022-10-20)
PROC: 0HDMXZZ Extraction of Right Foot Skin, External Approach (ICD-10-PCS; 2022-10-20)
PROC: 0HDKXZZ Extraction of Right Lower Leg Skin, External Approach (ICD-10-PCS; 2022-10-20)
PROC: 02H633Z Insertion of Infusion Device into Right Atrium, Percutaneous Approach (ICD-10-PCS; 2022-10-20)
PROC: 30233N1 Transfusion of Nonautologous Red Blood Cells into Peripheral Vein, Percutaneous Approach (ICD-10-PCS; 2022-10-20)
DX: A41.9 Sepsis, unspecified organism (principal); E44.0 Moderate protein-calorie malnutrition; N17.9 Acute kidney failure, unspecified; I96 Gangrene, not elsewhere classified; L03.116 Cellulitis of left lower limb; L03.115 Cellulitis of right lower limb; E87.20 Acidosis, unspecified; E87.1 Hypo-osmolality and hyponatremia; M86.9 Osteomyelitis, unspecified; Z68.1 Body mass index [BMI] 19.9 or less, adult; L97.829 Non-pressure chronic ulcer of other part of left lower leg with unspecified severity; L97.819 Non-pressure chronic ulcer of other part of right lower leg with unspecified severity; R65.20 Severe sepsis without septic shock; E87.5 Hyperkalemia; D64.9 Anemia, unspecified; D75.839 Thrombocytosis, unspecified; E87.6 Hypokalemia; F25.9 Schizoaffective disorder, unspecified; M76.62 Achilles tendinitis, left leg; I10 Essential (primary) hypertension; R62.7 Adult failure to thrive; E83.42 Hypomagnesemia; L89.90 Pressure ulcer of unspecified site, unspecified stage; Z79.899 Other long term (current) drug therapy; Z59.00 Homelessness unspecified
CPT/HCPCS: 36415; 36416; 36430; 71045; 80048; 80053; 80202; 81003; 82010; 82565; 82805; 83605; 83735; 84145; 84443; 85014; 85018; 85025; 85027; 85049; 86780; 86850; 86900; 86901; 87040; 87086; 87389; 88307; 88311; 93005; 96365; 96366; 96375; 97139; A6448; C1751; J0610; J0692; J1650; J1815; J1940; J2250; J2550; J2704; J3010; J3370; J3370-JW; J3475; J3480; J3490; J7050; L8440; P9016

== ENCOUNTER 2023-03-09 11:05 | Emergency (ER) | payer OTHER | END 2023-03-09 12:35 | disposition home or self-care (01) | LOC: ERS 11:05 | DX: M96.89 Other intraoperative and postprocedural complications and disorders of the musculoskeletal system (principal); I10 Essential (primary) hypertension | CPT/HCPCS: 99283 ==

== ENCOUNTER 2023-05-04 10:52 | Emergency (ER) | payer OTHER ==
[2023-05-04 12:03] LABS: #Eosinphils 0.2 thou/uL (0.0-0.7); #Monocytes 0.3 thou/uL (0.11-0.59); #Neutrophils 2.7 thou/uL (1.40-6.50); %Basophils 0.7 % (0.0-1.0); %Eosinophils 4.2 % (0.0-10.0); %Lymphocytes 27.5 % (21.0-51.0); %Monocytes 7.3 % (0.0-10.0); %Neutrophils 60.1 % (42.0-75.0); Hemoglobin 12.7 g/dL (14.0-18.0); Mean Corpuscular HGB CONC 33.4 g/dL (32.0-36.0); Mean Corpuscular Hemoglobin 29.2 pg (27.0-31.0); Mean Corpuscular Volume 87.4 fl (78.0-98.0); Mean Platelet Volume 10.1 fL (7.4-10.4); Platelet Count 268 10x3/uL (130-400); RBC Distribution Width 14.2 % (11.5-14.5); Red Blood Cell (RBC) Count 4.35 mill/uL (4.70-6.10); White Blood Cell (WBC) Count 4.5 10x3/uL (4.8-10.8)
[2023-05-04 12:21] LABS: ALT (SGPT) 7 U/L (8-55); AST (SGOT) 8 U/L (5-34); Albumin 3.7 g/dL (3.5-5.0); Alkaline Phosphatase 66 U/L (40-110); Anion Gap 13 mmol/L (10-20); BUN (Urea Nitrogen) 9 mg/dL (8.9-20.6); Bilirubin, Total 0.8 mg/dL (0.2-1.2); Calc. Creatinine Clearance 0 mL/min (70-130); Calcium 9.4 mg/dL (7.8-10.44); Carbon Dioxide 25 mmol/L (22-29); Chloride 104 mmol/L (98-107); Estimated GFR 114; Globulin 3.1 g/dL (2.4-3.5); Glucose 134 mg/dL (70-105); Potassium 3.8 mmol/L (3.5-5.1); Protein, Total 6.8 g/dL (6.0-8.3); Sodium 138 mmol/L (136-145)
== END 2023-05-04 17:04 ==
LOC: ERS 10:52
DX: S81.802D Unspecified open wound, left lower leg, subsequent encounter (principal); I10 Essential (primary) hypertension
CPT/HCPCS: 36415; 80053; 85025; 87040; 87070; 87077; 87186; 87205